=== PATIENT | female | born 1950 | race Caucasian/White ===

== ENCOUNTER 2016-12-01 09:53 | Inpatient (IN) | payer MEDICARE ==
[2016-12-01] VITALS (8 sets, daily range): BP systolic 113–190; BP diastolic 57–97; PULSE 89–116; RESP 17–28; TEMP 97.3–98.2; O2SAT 79–97
[~2016-12-01] VITALS: Ht 157.5 cm; Wt 52.7 kg
[2016-12-01] MEDS ORDERED: IODIXANOL 320 MG/ML 10 ML VIAL (for Rad CT) IV ONE (09:54)
--- NOTE | 2016-12-01 10:18 | PD ---
HPI Chief Complaint: Respiratory Symptoms Time Seen by Provider: 10:18 Travel History International Travel<30 days: No Contact w/Intl Traveler<30days: No Traveled to known affect area: No History of Present Illness HPI 66-year-old female came to the emergency room with history of shortness of breath and hemoptysis this progressively worsening since yesterday. Patient says that when she coughs she spits out a quarter size blood in her sputum that' s bright in color. Patient has history of lung cancer and is getting chemotherapy. She was told that anytime she is coughing up blood should go to the emergency room. Denies any chest pain. She short of breath at rest and her oxygen saturation was 88% on 4 L of oxygen via nasal cannula. Her oncologist is Dr. Ruiz. No history of fever or chills. No history of dizziness or syncopal episode. PFSH Past Medical History Narrative Medical List of her past medical, surgical, social and family history is reviewed from the nursing note. Hx Anticoagulant Therapy: Yes (ASA) Cardiovascular Problems: Yes (HTN, TRICUSPID/MITRAL VALVE PROLAPSE) Chemotherapy: Yes (LUNG CA ) Allergies-Medications (Allergen,Severity, Reaction): Coded Allergies: erythromycin base (Unverified Allergy, Severe, Hives, 12/01/16) penicillin G (Unverified Allergy, Severe, Hives, 12/01/16) Comments List of her allergies reviewed from the nursing note. Reported Meds & Prescriptions Reported Meds & Active Scripts Active Reported Tagrisso (Osimertinib Mesylate) 80 Mg Tablet 80 Mg PO DAILY Pravastatin 20 Mg Tab 20 Mg PO DAILY Levetiracetam ER 24 HR (Levetiracetam) 500 Mg Stas 500 Mg PO DAILY Krill Oil 500 Mg Capsule 500 Mg PO DAILY Multiple Vitamin 1 Tab 1 Tab PO DAILY Biotin 5 Mg Cap 500 Mcg PO DAILY Aspirin 81 Mg Chew 81 Mg CHEW DAILY Famotidine 20 Mg Tab 20 Mg PO DAILY Carvedilol 6.25 Mg Tab 6.25 Mg PO DAILY Hydrochlorothiazide 25 Mg Tab 25 Mg PO DAILY Levothyroxine (Levothyroxine Sodium) 75 Mcg Tab 75 Mcg PO DAILY Narrative Medication List of her home medications reviewed from the nursing note. Review of Systems Except as stated in HPI: all other systems reviewed are Neg Physical Exam Narrative GENERAL: Awake, alert, anxious, mild/moderate distress SKIN: Focused skin assessment warm/dry. HEAD: Atraumatic. Normocephalic. EYES: Pupils equal and round. No scleral icterus. No injection or drainage. ENT: No nasal bleeding or discharge. Mucous membranes pink and moist. NECK: Trachea midline. No JVD. CARDIOVASCULAR: Regular rate and rhythm. No murmur appreciated. RESPIRATORY: Tachypnea, diminished air entry on the left lung field especially the base GASTROINTESTINAL: Abdomen soft, non-tender, nondistended. Hepatic and splenic margins not palpable. MUSCULOSKELETAL: No obvious deformities. No clubbing. No cyanosis. No edema. NEUROLOGICAL: Awake and alert. No obvious cranial nerve deficits. Motor grossly within normal limits. Normal speech. PSYCHIATRIC: Appropriate mood and affect; insight and judgment normal. Data Data Last Documented VS Vital Signs Date Time Temp Pulse Resp B/P (MAP) Pulse Ox O2 Delivery O2 Flow Rate FiO2 12/01/16 12:18 92 25 113/64 (80) 96 Venturi Mask 12/01/16 10:35 6.00 50 12/01/16 10:10 97.9 Orders Orders Complete Blood Count With Diff (12/01/16 10:25) Basic Metabolic Panel (Bmp) (12/01/16 10:25) Prothrombin Time / Inr (Pt) (12/01/16 10:25) Troponin I (12/01/16 10:25) Urinalysis - C+S If Indicated (12/01/16 10:25) Blood Culture (12/01/16 10:25) Iv Access Insert/Monitor (12/01/16 10:25) Electrocardiogram (12/01/16 10:25) Ecg Monitoring (12/01/16 10:25) Oximetry (12/01/16 10:25) Oxygen Administration (12/01/16 10:25) Chest, Single Ap (12/01/16 10:25) Ct Pulmonary Angiogram (12/01/16 10:25) Sodium Chloride 0.9% Flush (Ns Flush) (12/01/16 10:30) Albuterol Neb (Albuterol Neb) (12/01/16 10:30) Type And Screen (12/01/16 10:25) Lactic Acid (12/01/16 10:25) Iodixanol 320 Inj (Rad Ct) (Visipaque 32 (12/01/16 09:54) Aztreonam Inj (Azactam Inj) (12/01/16 12:15) Vancomycin Inj (Vancomycin Inj) (12/01/16 12:15) Lactic Acid (12/01/16 12:10) Admit Order (Ed Use Only) (12/01/16 13:32) Labs Laboratory Tests Test 12/01/16 10:36 12/01/16 12:23 White Blood Count 4.9 TH/MM3 Red Blood Count 3.53 MIL/MM3 Hemoglobin 10.7 GM/DL Hematocrit 33.0 % Mean Corpuscular Volume 93.7 FL Mean Corpuscular Hemoglobin 30.3 PG Mean Corpuscular Hemoglobin Concent 32.3 % Red Cell Distribution Width 14.3 % Platelet Count 200 TH/MM3 Mean Platelet Volume 8.5 FL Neutrophils (%) (Auto) 59.2 % Lymphocytes (%) (Auto) 25.0 % Monocytes (%) (Auto) 12.9 % Eosinophils (%) (Auto) 1.9 % Basophils (%) (Auto) 1.0 % Neutrophils # (Auto) 2.9 TH/MM3 Lymphocytes # (Auto) 1.2 TH/MM3 Monocytes # (Auto) 0.6 TH/MM3 Eosinophils # (Auto) 0.1 TH/MM3 Basophils # (Auto) 0.0 TH/MM3 CBC Comment DIFF FINAL Differential Comment Prothrombin Time 10.3 SEC Prothromb Time International Ratio 0.9 RATIO Blood Urea Nitrogen 12 MG/DL Creatinine 1.15 MG/DL Random Glucose 121 MG/DL Calcium Level 9.0 MG/DL Sodium Level 128 MEQ/L Potassium Level 4.1 MEQ/L Chloride Level 93 MEQ/L Carbon Dioxide Level 26.7 MEQ/L Anion Gap 8 MEQ/L Estimat Glomerular Filtration Rate 47 ML/MIN Lactic Acid Level 1.9 mmol/L 1.0 mmol/L Troponin I 0.07 NG/ML [facility] Medical Decision Making Medical Screen Exam Complete: Yes Emergency Medical Condition: Yes Medical Record Reviewed: Yes Interpretation(s) Twelve-lead EKG was reviewed by me. Normal sinus rhythm, normal axis, nonspecific ST-T wave changes. Heart rate of 89 bpm. Differential Diagnosis PE, pneumonia, bleeding from the lung mass, pleural effusion Narrative Course 11:38 AM blood test results are back. Patient has mild to moderate hyponatremia. The troponin is slightly elevated. I suspicion is high for PE or a hemorrhagic lung mass. I've ordered a CT pulmonary angiogram. Awaiting for the CAT scan to be done and resulted. Chest x-ray was read as left lower lobe density which could be infiltrate. I have not given the patient any antibiotic. Awaiting for the CAT scan. Patient will require admission. 12:[address] pulmonary angiogram is negative for PE. The scan shows a left lower lobe consolidation. I started her on Azactam and vancomycin to treat a possible aggressive pneumonia since patient has been in and out of healthcare facility multiple times for her cancer treatment. Cussed the case with her oncologist Dr. Ruiz was out of town. He agreed with the management. One of his concern was possible medication induced pneumonitis. In which case he had recommended steroid. I have not started her on steroid because this seems more of a consolidation then bilateral pneumonitis. Patient will require admission. Awaiting for the admitting physician to call back. Dr. Ruiz will be consulted. Critical Care Narrative Aggregate critical care time was 30 minutes. Time to perform other separately billable procedures was not included in the critical care time. My time did not include minutes spent treating any other patients simultaneously or on activities that did not directly contribute to the patient's treatment. The services I provided to this patient were to treat and/or prevent clinically significant deterioration that could result in: Hypoxia, hemoptysis, respiratory distress I provided critical care services requiring my management, as noted below: Chart data review, documentation time, medication orders and management, vital sign assessments/reviewing monitor data, ordering and reviewing lab tests, ordering and interpreting/reviewing x-rays and diagnostic studies, care of the patient and discussion of the patient with the admitting physicians. Procedures EKG Prior to Arrival: No Diagnosis Primary Impression: Respiratory distress Additional Impressions: Pneumonia Qualified Codes: J18.1 - Lobar pneumonia, unspecified organism Hypoxia Hemoptysis Lung cancer Qualified Codes: C34.90 - Malignant neoplasm of unspecified part of unspecified bronchus or lung Admitting Information Admitting Physician Requests: Pau Montaño MD Dec 01, 2016 10:18
[2016-12-01] MEDS ORDERED: SODIUM CHLORIDE 0.9% FLUSH 10 ML FLUSH IVF PRN (10:30)
[2016-12-01] MEDS ORDERED: RESP: ALBUTEROL 2.5 MG/3 ML NEB (SCH) INH ONE (10:30)
[2016-12-01] MEDS ORDERED: MULTTAB67 PO (10:45)
[2016-12-01] MEDS ORDERED: PRAV20TA2 PO (10:45)
[2016-12-01] MEDS ORDERED: KRIL500C2 PO (10:45)
[2016-12-01] MEDS ORDERED: ASPI81CH CHEW (10:45)
[2016-12-01] MEDS ORDERED: LEVE500T11 PO (10:45)
[2016-12-01] MEDS ORDERED: CARV6.252 PO (10:45)
[2016-12-01] MEDS ORDERED: HYDR25TA5 PO (10:45)
[2016-12-01] MEDS ORDERED: LEVO75TA3 PO (10:45)
[2016-12-01] MEDS ORDERED: OSIM80TA PO (10:45)
[2016-12-01] MEDS ORDERED: FAMO20TA2 PO (10:45)
[2016-12-01] MEDS ORDERED: BIOTCAP PO (10:45)
--- NOTE | 2016-12-01 10:57 | RADRPT ---
EXAM DATE/TIME: 12/01/2016 10:32 [facility] COMPARISON: No previous studies available for comparison. INDICATIONS : Shortness of breath. MEDICAL HISTORY : Hypertension. Hypercholesterolemia. Carcinoma, lung. Lymphoma, Renal cell carcinoma, Mitral valve prolapse SURGICAL HISTORY : Nephrectomy, right. ENCOUNTER: Initial ACUITY: 3 days PAIN SCORE: 0/10 LOCATION: Bilateral chest FINDINGS: A single view of the chest demonstrates left basal consolidation. Tiny pleural effusion. Heart normal size The cardiomediastinal contours are unremarkable. Osseous structures are intact. CONCLUSION: 1. Left basilar consolidation, possibly pneumonia. 2. Tiny left pleural effusion. Shon Gibbs MD on December 01, 2016 at 10:55 Board Certified Radiologist. This report was verified electronically.
[2016-12-01 11:04] LABS: AUTOMATED NEUTROPHIL # 2.9 TH/MM3 (1.8-7.7); EOSINOPHIL # 0.1 TH/MM3 (0-0.4); EOSINOPHIL % 1.9 % (0.0-4.0); HEMO FLAGS DIFF FINAL; LYMPHOCYTE # 1.2 TH/MM3 (1.0-4.8); MEAN CELL VOLUME 93.7 FL (80.0-100.0); MEAN CORPUSCULAR HEMOGLOBIN 30.3 PG (27.0-34.0); MEAN CORPUSCULAR HGB CONC 32.3 % (32.0-36.0); MONO % 12.9 % (0.0-8.0); NEUT % 59.2 % (16.0-70.0); PLATELET COUNT 200 TH/MM3 (150-450); RED BLOOD COUNT 3.53 MIL/MM3 (4.00-5.30); RED CELL DISTRIBUTION WIDTH 14.3 % (11.6-17.2); WHITE BLOOD COUNT 4.9 TH/MM3 (4.0-11.0)
[2016-12-01 11:08] LABS: INTERNATIONAL NORMALIZED RATIO 0.9 RATIO; PROTHROMBIN TIME - PATIENT 10.3 SEC (9.8-11.6)
[2016-12-01 11:10] LABS: BICARBONATE 26.7 MEQ/L (21.0-32.0); POTASSIUM 4.1 MEQ/L (3.5-5.1)
--- NOTE | 2016-12-01 11:47 | RADRPT ---
EXAM DATE/TIME: 12/01/2016 11:31 [facility] COMPARISON: No previous studies available for comparison. INDICATIONS : Shortness of breath. IV CONTRAST: 50 cc Visipaque (iodixanol) IV RADIATION DOSE: 22.62 CTDIvol (mGy) MEDICAL HISTORY : Carcinoma, lung. Cardiovascular disease Hypertension. SURGICAL HISTORY : Hysterectomy. Splenectomy.Nephrectomy, left.Heart. ENCOUNTER: Initial ACUITY: 1 day PAIN SCALE: 4/10 LOCATION: Bilateral chest TECHNIQUE: Volumetric scanning of the chest was performed using a pulmonary embolism protocol MIP images were re constructed. Using automated exposure control and adjustment of the mA and/or kV according to patien t size, radiation dose was kept as low as reasonably achievable to obtain optimal diagnostic quality images. DICOM format image data is available electronically for review and comparison. Follow-up recommendations for detected pulmonary nodules are based at a minimum on nodule size and pa tient risk factors according to Fleischner Society Guidelines. FINDINGS: Breathing motion degraded. PULMONARY ARTERIES: No filling defects are seen in the pulmonary arteries through the segmental level. LUNGS: There is dense consolidation without air bronchograms involving the medial left lung base. Low-densit y material seen involving the airways of the left lower lobe. Surgical clips are seen about the hilum suggesting partial lobectomy. Bronchiectatic changes are seen involving the medial upper lobes bilat erally. No discrete mass. PLEURAE: Small left effusion. No effusion on the right. MEDIASTINUM: There is good visualization of the great vessels of the middle mediastinum. No evidence of mediastin al or hilar adenopathy/mass. MUSCULOSKELETAL: Within normal limits for patient age. MISCELLANEOUS: The visualized upper abdominal organs demonstrate no acute abnormality. CONCLUSION: 1. Motion degraded exam. 2. No pulmonary embolus. 3. Consolidation involving the left lower lobe with small left effusion. Low-density material seen in volving the airways of the left lower lobe. This could relate to mucous plugging. Bernabe Marquez Jr., MD on December 01, 2016 at 11:40 Board Certified Radiologist. This report was verified electronically.
--- NOTE | 2016-12-01 12:03 | EKG ---
Date Performed: 12/01/2016 Time Performed: 10:52:53 PTAGE: 66 years EKG: Sinus rhythm LEFT ATRIAL ENLARGEMENT POSSIBLE LEFT VENTRICULAR HYPERTROPHY ABNORMAL ECG PREVIOUS TRACING : 12/20/2013 10.16 No significant change from previous tracing noted. DOCTOR: Tesfaye Hillman Interpretating Date/Time 12/01/2016 12:02:12
[2016-12-01] MEDS ORDERED: AZTREONAM INJ 2,000 MG in SODIUM CHLORIDE 0.9% INJ 100 ML IV ONE (12:15)
[2016-12-01] MEDS ORDERED: VANCOMYCIN INJ 1,000 MG in SODIUM CHLOR 0.9% 250 ML INJ 250 ML IV ONE (12:15)
[2016-12-01] MEDS ORDERED: NALOXONE HCL 0.4 MG/ML AMP IV PRN (13:45)
[2016-12-01] MEDS ORDERED: BISACODYL 10 MG SUPP RECTAL PRN (13:45)
[2016-12-01] MEDS ORDERED: ONDANSETRON HCL 4 MG/2 ML VIAL IVP PRN (13:45)
[2016-12-01] MEDS ORDERED: LACTULOSE SYRUP 20 GM/30 ML CUP PO PRN (13:45)
[2016-12-01] MEDS ORDERED: SENNOSIDES 8.6 MG TAB PO PRN (13:45)
[2016-12-01] MEDS ORDERED: SODIUM CHLORIDE 0.9% FLUSH 10 ML FLUSH IV FLUSH PRN (13:45)
[2016-12-01] MEDS ORDERED: ACETAMINOPHEN 325 MG TAB PO PRN (13:45)
[2016-12-01] MEDS ORDERED: Vancomycin Consult Pharmacy 1 EA OTHER SCH (13:45)
[2016-12-01] MEDS ORDERED: MAGNESIUM HYDROXIDE SUSP 30 ML CUP PO PRN (13:45)
[2016-12-01 13:48] LABS: BLOOD, URINE NEG (NEG); GLUCOSE,URINE NEG (NEG); KETONE, URINE NEG (NEG); NITRITE,URINE NEG (NEG); PH, URINE 6.5 (5.0-8.5); SQUAMOUS EPITHELIAL CELL URINE <1 /hpf (0-5); URINE COLOR LIGHT-YELLOW (YELLW/STRAW)
[2016-12-01 13:52] LABS: COMMENT (UR) CULT NOT INDICATED; CULTURE IF INDICATED CULT NOT INDICATED
[2016-12-01] MEDS: SODIUM CHLOR 0.9% 1000 ML INJ 1,000 ML IV SCH (16:04)
[2016-12-01] MEDS: RESP: ALBUTEROL 2.5 MG/IPRATROPIUM 0.5 MG NEB (SCH) NEB ×2 (16:30→21:49)
--- NOTE | 2016-12-01 18:23 | HHI.HP ---
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, who was started on Tagrisso five weeks ago she has Stage IV Non Small cell lung cancer, she received recently Prednisone due to Respiratory insufficiency and Wheezing, has continued coughing, has Severe Tricuspid regurgitation, Right atrial enlargement, Pulmonary Hypertension, Moderate Mitral valve regurgitation with prolapse has Metastatic 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 She short of breath at rest and her oxygen saturation was 88% on 4 L of oxygen via nasal cannula. was contacted her endoscopy support specialist Doctor Jesus Ruiz recommended for Hospitalization. at this time seen in the presence of her two sisters. Review of Systems Constitutional: DENIES: Fever, Chills, Change in appetite Endocrine: DENIES: Heat/cold intolerance Eyes: DENIES: Blurred vision, Eye pain Respiratory: COMPLAINS OF: Cough, Hemoptysis, Shortness of breath Except as stated in HPI: all other systems reviewed are Neg Past Family Social History Past Medical History Hypertension Metastatic to Brain, Spine and bilateral lungs Non small lung cancer Hypothyroidism Seizure disorder CAD Non Hodgkin's Lymphoma Renal Cell Carcinoma status post Nephrectomy Past Surgical History Bilateral Salpingo-oophorectomy Nephrectomy right resection of tumor left frontal lobe 12/28/15 [facility] Splenectomy Tonsillectomy Reported Medications Reported Meds & Active Scripts Active Reported Tagrisso (Osimertinib Mesylate) 80 Mg Tablet 80 Mg PO DAILY Pravastatin 20 Mg Tab 20 Mg PO DAILY Levetiracetam ER 24 HR (Levetiracetam) 500 Mg Stas 500 Mg PO DAILY Krill Oil 500 Mg Capsule 500 Mg PO DAILY Multiple Vitamin 1 Tab 1 Tab PO DAILY Biotin 5 Mg Cap 500 Mcg PO DAILY Aspirin 81 Mg Chew 81 Mg CHEW DAILY Famotidine 20 Mg Tab 20 Mg PO DAILY Carvedilol 6.25 Mg Tab 6.25 Mg PO DAILY Hydrochlorothiazide 25 Mg Tab 25 Mg PO DAILY Levothyroxine (Levothyroxine Sodium) 75 Mcg Tab 75 Mcg PO DAILY Allergies: Coded Allergies: erythromycin base (Unverified Allergy, Severe, Hives, 12/01/16) penicillin G (Unverified Allergy, Severe, Hives, 12/01/16) Active Ordered Medications Current Medications Medications (Trade) Dose Ordered Sig/Sami Route Start Time Stop Time Status Last Admin (Pepcid) 20 mg DAILY PO 12/02/16 09:00 (Synthroid) 75 mcg DAILY@0600 PO 12/02/16 06:00 (Pravachol) 20 mg DAILY PO 12/02/16 09:00 Patient Own Medication PT OWN MED: KEPPRA... DAILY PO 12/02/16 09:00 Future Hold Sodium Chloride 1,000 ml @ 75 mls/hr [id number] IV 12/01/16 14:30 12/01/16 16:04 (NS Flush) 2 ml UNSCH PRN IV FLUSH 12/01/16 13:45 (NS Flush) 2 ml BID IV FLUSH 12/01/16 21:00 12/01/16 21:47 (Tylenol) 650 mg Q4H PRN PO 12/01/16 13:45 (Zofran Inj) 4 mg Q6H PRN IVP 12/01/16 13:45 (Narcan Inj) 0.4 mg UNSCH PRN IV 12/01/16 13:45 (Gial-Colace) 1 tab BID PO 12/01/16 21:00 12/01/16 21:47 (Milk Of Magnesia Liq) 30 ml Q12H PRN PO 12/01/16 13:45 (Senokot) 17.2 mg Q12H PRN PO 12/01/16 13:45 (Dulcolax Supp) 10 mg DAILY PRN RECTAL 12/01/16 13:45 (Lactulose Liq) 30 ml DAILY PRN PO 12/01/16 13:45 Aztreonam 2000 mg/ Sodium Chloride 100 ml @ 200 mls/hr Q8H IV 12/01/16 23:00 12/01/16 22:58 Pharmacy Profile Note 0 ml @ 0 mls/hr UNSCH OTHER 12/01/16 13:45 (Duoneb Neb) 1 ampule Q4HR NEB NEB 12/01/16 16:00 12/01/16 21:49 (Mucinex Er) 600 mg BID PO 12/01/16 21:00 12/01/16 21:47 Vancomycin HCl 1000 mg/Sodium Chloride 250 ml @ 250 mls/hr Q24H IV 12/02/16 13:00 Miscellaneous Information SPECIFIC LAB TO BE ... ONCE ONCE .XX 12/04/16 12:45 12/04/16 12:46 Family History Sister with Breast Cancer sister with Lung Cancer Social History Lives with her Sister Mrs. Owens Smoked in the past, denies toxic habits. Physical Exam Vital Signs Vital Signs Date Time Temp Pulse Resp B/P (MAP) Pulse Ox O2 Delivery O2 Flow Rate FiO2 12/01/16 17:40 Nasal Cannula 3.00 12/01/16 17:18 12/01/16 17:00 97.3 89 17 131/62 (85) 97 12/01/16 12:18 92 25 113/64 (80) 96 Venturi Mask 12/01/16 10:35 92 Venturi Mask 6.00 50 12/01/16 10:30 89 Nasal Cannula 4.00 12/01/16 10:16 100 24 90 Nasal Cannula 4.00 12/01/16 10:10 97.9 100 24 190/97 (128) 90 12/01/16 09:56 98.2 116 28 170/82 (111) 79 Room Air Physical Exam GENERAL: Awake, alert, anxious, no acute distress. SKIN: Focused skin assessment warm/dry. HEAD: Atraumatic. Normocephalic. EYES: Pupils equal and round. No scleral icterus. No injection or drainage. ENT: No nasal bleeding or discharge. Mucous membranes pink and moist. NECK: Trachea midline. No JVD. CARDIOVASCULAR: Regular rate and rhythm. No murmur appreciated. RESPIRATORY: Tachypnea, diminished air entry on the left lung field especially the base GASTROINTESTINAL: Abdomen soft, non-tender, nondistended. Hepatic and splenic margins not palpable. MUSCULOSKELETAL: No obvious deformities. No clubbing. No cyanosis. No edema. NEUROLOGICAL: Awake and alert. No obvious cranial nerve deficits. Motor grossly within normal limits. Normal speech. PSYCHIATRIC: Appropriate mood and affect; insight and judgment normal. Laboratory Laboratory Tests Test 12/01/16 10:36 12/01/16 12:23 12/01/16 13:25 12/01/16 16:30 White Blood Count 4.9 Red Blood Count 3.53 Hemoglobin 10.7 Hematocrit 33.0 Mean Corpuscular Volume 93.7 Mean Corpuscular Hemoglobin 30.3 Mean Corpuscular Hemoglobin Concent 32.3 Red Cell Distribution Width 14.3 Platelet Count 200 Mean Platelet Volume 8.5 Neutrophils (%) (Auto) 59.2 Lymphocytes (%) (Auto) 25.0 Monocytes (%) (Auto) 12.9 Eosinophils (%) (Auto) 1.9 Basophils (%) (Auto) 1.0 Neutrophils # (Auto) 2.9 Lymphocytes # (Auto) 1.2 Monocytes # (Auto) 0.6 Eosinophils # (Auto) 0.1 Basophils # (Auto) 0.0 CBC Comment DIFF FINAL Differential Comment Prothrombin Time 10.3 Prothromb Time International Ratio 0.9 Blood Urea Nitrogen 12 Creatinine 1.15 Random Glucose 121 Calcium Level 9.0 Sodium Level 128 Potassium Level 4.1 Chloride Level 93 Carbon Dioxide Level 26.7 Anion Gap 8 Estimat Glomerular Filtration Rate 47 Lactic Acid Level 1.9 1.0 Troponin I 0.07 1.23 Urine Color LIGHT-YELLOW Urine Turbidity CLEAR Urine pH 6.5 Urine Specific [place] 1.024 Urine Protein TRACE Urine Glucose (UA) NEG Urine Ketones NEG Urine Occult Blood NEG Urine Nitrite NEG Urine Bilirubin NEG Urine Urobilinogen LESS THAN 2.0 Urine Leukocyte Esterase NEG Urine RBC 1 Urine WBC LESS THAN 1 Urine Squamous Epithelial Cells <1 Microscopic Urinalysis Comment CULT NOT INDICATED Total Creatine Kinase 123 Date/Time Source Procedure Growth Status 12/01/16 11:18 Blood Peripheral Aerobic Blood Culture Pending Received 12/01/16 11:18 Blood Peripheral Anaerobic Blood Culture Pending Received Result Diagram: 12/01/16 1036 12/01/16 1036 Caprini VTE Risk Assessment Caprini VTE Risk Assessment: Mod/High Risk (score >= 2) Caprini Risk Assessment Model Point Value = 1 Point Value = 2 Point Value = 3 Point Value = 5 Age 41-60 Minor surgery BMI > 25 kg/m2 Swollen legs Varicose veins or History of unexplained or recurrent spontaneous Oral contraceptives or hormone replacement Sepsis (< 1 month) Serious lung disease, including pneumonia (< 1 month) Abnormal pulmonary function Acute myocardial infarction Congestive heart failure (< 1 month) History of inflammatory bowel disease Medical patient at bed rest Age 61-74 Arthroscopic surgery Major open surgery (> 45 min) Laparoscopic surgery (> 45 min) Malignancy Confined to bed (> 72 hours) Immobilizing plaster cast Central venous access Age >= 75 History of VTE Family history of VTE Factor V Leiden Prothrombin [id number] Lupus anticoagulant Anticardiolipin antibodies Elevated serum homocysteine Heparin-induced thrombocytopenia Other congenital or acquired thrombophilia Stroke (< 1 month) Elective arthroplasty Hip, pelvis, or leg fracture Acute spinal cord injury (< 1 month) Prophylaxis Regimen Total Risk Factor Score Risk Level Prophylaxis Regimen 0-1 Low Early ambulation 2 Moderate Order ONE of the following: *Sequential Compression Device (SCD) *Heparin 5000 units SQ BID 3-4 Higher Order ONE of the following medications: *Heparin 5000 units SQ TID *Enoxaparin/Lovenox 40 mg SQ daily (WT < 150 kg, CrCl > 30 mL/min) *Enoxaparin/Lovenox 30 mg SQ daily (WT < 150 kg, CrCl > 10-29 mL/min) *Enoxaparin/Lovenox 30 mg SQ BID (WT < 150 kg, CrCl > 30 mL/min) AND/OR *Sequential Compression Device (SCD) 5 or more Highest Order ONE of the following medications: *Heparin 5000 units SQ TID (Preferred with Epidurals) *Enoxaparin/Lovenox 40 mg SQ daily (WT < 150 kg, CrCl > 30 mL/min) *Enoxaparin/Lovenox 30 mg SQ daily (WT < 150 kg, CrCl > 10-29 mL/min) *Enoxaparin/Lovenox 30 mg SQ BID (WT < 150 kg, CrCl > 30 mL/min) AND *Sequential Compression Device (SCD) Assessment and Plan Assessment and Plan 1. Hemoptysis in a patient with Stage IV Non Small Cell lung Cancer T790M Mutation, on Chemotherapy, receiving Tagrisso Continue Bronchodilator, Mucolytic incentive spirometry, fire fighting equipment specialist consult, CTA negative for PE showed consolidation on Left lower lobe consolidation. follow Hemoglobin and Hematocrit. discussed BY ER specialist with doctor Ruiz to see his patient. 2. Pneumonia started on Vancomycin and Azactam, asked for blood culture, sputum culture, Legionella antigen and Pneumococcal antigen 3. . History of Renal Cell Carcinoma status post Nephrectomy 4. Hodgkin's Disease 1973 no recurrence 5. Hypertension on hold anti-hypertensives 6. Hypothyroidism to continue Hormonal replacement 7. Hyperlipidemia to continue Statins. 8. CAD with Severe Tricuspid and Mitral regurgitation DVT prophylaxis with SCDs contraindicated Pharmacological management GI prophylaxis with Famotidine Transaction Manager PT evaluation continue antibiotics Continue IV Hydration Started Regular diet. Discussed with Emergency Medicine Physician Doctor Pau Marino Discussed Condition With Patient and her two Sisters. Physician Certification 2 Midnight Certification Type: Admission for Inpatient Services Order for Inpatient Services The services are ordered in accordance with Medicare regulations or non- Medicare payer requirements, as applicable. In the case of services not specified as inpatient-only, they are appropriately provided as inpatient services in accordance with the 2-midnight benchmark. Estimated LOS (days): 3 days is the estimated time the patient will need to remain in the hospital, assuming treatment plan goals are met and no additional complications. Post-Hospital Plan: Not yet determined Sea Stephenson MD Dec 01, 2016 18:23
[2016-12-01] MEDS ORDERED: DOCUSATE SODIUM 50 MG/SENNA 8.6 MG TAB PO SCH (21:00)
[2016-12-01] MEDS: guaiFENesin E.R. 600 MG TAB PO SCH (21:47)
[2016-12-01] MEDS: SODIUM CHLORIDE 0.9% FLUSH 10 ML FLUSH IV FLUSH SCH (21:47)
[2016-12-01] MEDS: AZTREONAM INJ 2,000 MG in SODIUM CHLORIDE 0.9% INJ 100 ML IV SCH (22:58)
[2016-12-01] MEDS ORDERED: PILL SPLITTER OTHER PRN (23:45)
[2016-12-02] VITALS (22 sets, daily range): BP systolic 104–153; BP diastolic 55–89; PULSE 84–113; RESP 18–34; TEMP 97.1–98.1; O2SAT 90–97
[2016-12-02] MEDS ORDERED: METOPROLOL TARTRATE 25 MG TAB PO ONE
[2016-12-02] MEDS ORDERED: ASPIRIN 81 MG CHEW TAB CHEW ONE
[2016-12-02] MEDS ORDERED: NITROGLYCERIN 0.4 MG SL 25 TABS/BTL SL PRN
[2016-12-02] MEDS: RESP: ALBUTEROL 2.5 MG/IPRATROPIUM 0.5 MG NEB (SCH) NEB ×6 (00:22→19:30)
[2016-12-02] MEDS: LEVOTHYROXINE SODIUM 75 MCG TAB PO SCH (05:08)
[2016-12-02] MEDS: SODIUM CHLOR 0.9% 1000 ML INJ 1,000 ML IV SCH (05:10)
--- NOTE | 2016-12-02 05:36 | MB ---
cc: PETEY MENDEZ M.D. DATE OF CONSULTATION 12/01/2016 REASON FOR CONSULTATION Consult requested by hospitalist for evaluation of non-small cell lung cancer. HISTORY OF PRESENT ILLNESS Jo is a pleasant 66-year-old female. She is under the care of my associate Dr. Ruiz for metastatic [id number] lung cancer. 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 She underwent resection of one of the brain masses; the pathology shows adenocarcinoma consistent with lung cancer. The biomarkers were positive for Exon-19 deletion. She had received stereotactic radiation therapy to the brain metastasis. She was started on Tarceva in February of last year. The patient had a good response initially. Then in September she had a PET scan which showed progressive disease. Dr. Ruiz had ordered Foundation study and she was found to have T790M mutation. The patient was started on Tagrisso on October 29. The patient has been tolerating it well. The patient had developed shortness of breath and hemoptysis. With that she came to the emergency room as she was advised that if she developed any hemoptysis she is at risk for bleeding and she should report to the emergency room. The patient had a CT angiogram of the chest which did not show any pulmonary embolism. There is a consolidation noted in the left lower lobe with a small left effusion. The low-density material is seen involving the airways of the left lower lobe. This could be related to mucous plugging. The patient is admitted to the hospital for possible pneumonia. She has consolidation. The patient is on antibiotics. I have been asked to see the patient for further evaluation as Dr. Ruiz is not available today. REVIEW OF SYSTEMS The patient has no further episode of hemoptysis since she is in the hospital. She is complaining of cough and shortness of breath. The patient is hungry and she is trying to order food from the cafeteria and she has been on hold for 20 minutes and she is getting frustrated with that. She has a sister and another family member present in the room. She denies any headaches. She denies any nausea or vomiting. She denies any weight loss. The rest of the review of systems is negative. PAST MEDICAL HISTORY 1. History of renal cell cancer. 2. History of Hodgkin's lymphoma, Stage III-A, treated with radiation therapy in the 1970s. PAST SURGICAL HISTORY 1. Bilateral salpingo-oophorectomy. 2. Right nephrectomy. 3. Craniotomy and resection of the brain metastasis from the left frontal lobe. 4. Hysterectomy. 5. Splenectomy. 6. Tonsillectomy. ALLERGIES ERYTHROMYCIN. PENICILLIN. MEDICATIONS Please see EMR. FAMILY HISTORY Noncontributory. SOCIAL HISTORY The patient does not smoke cigarettes, does not drink alcohol. PHYSICAL EXAMINATION GENERAL: A well-developed, well-nourished elderly white female in no apparent distress. VITAL SIGNS: Temperature 97.3, heart is 89, blood pressure 131/62, O2 saturation 97%. HEENT: PERRLA, EOMI, anicteric. No oral lesions are noted. NECK: No lymphadenopathy noted. LUNGS: Clear. No wheezing, rhonchi or rales. HEART: Regular rate and rhythm. ABDOMEN: Soft, nontender. No hepatosplenomegaly. EXTREMITIES: No pedal edema. NEUROLOGY: Awake, alert, oriented x 3. SKIN: No significant lesions are noted. ASSESSMENT 1. Non-small cell lung cancer with brain metastasis status post Tarceva, currently on Tagrisso. 2. Hemoptysis and shortness of breath probably related to pneumonia. 3. Pneumonia. PLAN I have reviewed her available records and I have discussed with the patient, sister and another family member regarding her condition. The patient had only one episode of hemoptysis. She has shortness of breath which seems to have resolved since she is in the hospital. She has no further episodes of hemoptysis. Most likely this is all due to the pneumonia. The patient is on antibiotics. Hopefully this will resolve her hemoptysis and she would be able to resume Tagrisso. I will have her primary oncologist, Dr. Ruiz, to see her tomorrow. The patient and the family members have asked several questions and these were answered to their satisfaction. Thank you for asking my opinion. MD MARGARITA Lugo/AJIT /11:49 PM /5:22 AM TIFFANY
[2016-12-02 06:24] LABS: AUTOMATED NEUTROPHIL # 1.9 TH/MM3 (1.8-7.7); BASOPHIL # 0.1 TH/MM3 (0-0.2); BASOPHIL % 3.1 % (0.0-2.0); EOSINOPHIL # 0.1 TH/MM3 (0-0.4); EOSINOPHIL % 2.9 % (0.0-4.0); HEMATOCRIT 28.7 % (35.0-46.0); HEMO FLAGS DIFF FINAL; LYMPH % 29.4 % (9.0-44.0); LYMPHOCYTE # 1.1 TH/MM3 (1.0-4.8); MEAN CELL VOLUME 94.1 FL (80.0-100.0); MEAN CORPUSCULAR HEMOGLOBIN 31.1 PG (27.0-34.0); MONO % 15.2 % (0.0-8.0); NEUT % 49.4 % (16.0-70.0); PLATELET COUNT 165 TH/MM3 (150-450); RED BLOOD COUNT 3.05 MIL/MM3 (4.00-5.30); RED CELL DISTRIBUTION WIDTH 14.1 % (11.6-17.2); WHITE BLOOD COUNT 3.9 TH/MM3 (4.0-11.0)
[2016-12-02 06:53] LABS: PROTHROMBIN TIME - PATIENT 10.5 SEC (9.8-11.6)
[2016-12-02] MEDS: AZTREONAM INJ 2,000 MG in SODIUM CHLORIDE 0.9% INJ 100 ML IV SCH ×3 (06:53→23:20)
[2016-12-02 07:24] LABS: ANION GAP 9 MEQ/L (5-15); AST (GOT) 24 U/L (15-37); BLOOD UREA NITROGEN 12 MG/DL (7-18); CHLORIDE 100 MEQ/L (98-107); GLOMERULAR FILTRATION RATE 51 ML/MIN (>89); POTASSIUM 4.6 MEQ/L (3.5-5.1); SODIUM (NA) 135 MEQ/L (136-145)
[2016-12-02 07:28] LABS: ALKALINE PHOSPHATASE 70 U/L (45-117); ALT (GPT) 14 U/L (10-53); TOTAL BILIRUBIN ADULT 0.2 MG/DL (0.2-1.0)
--- NOTE | 2016-12-02 08:26 | PD.ONC.PN ---
Subjective Subjective Remarks Afebrile overnight. Pt with some mild SOB Denies chest pain Awaiting cardiology consult for elevated troponin. Objective Data Date Time Temp Pulse Resp B/P (MAP) Pulse Ox O2 Delivery O2 Flow Rate FiO2 12/02/16 06:00 85 12/02/16 05:00 86 12/02/16 04:21 97.9 84 20 119/58 (78) 95 12/02/16 00:00 97.5 94 20 104/55 (71) 95 12/01/16 21:51 95 Nasal Cannula 3.00 12/01/16 20:30 Nasal Cannula 3.00 12/01/16 20:00 97.4 93 20 118/57 (77) 95 12/01/16 19:54 99 12/01/16 17:40 Nasal Cannula 3.00 12/01/16 17:18 12/01/16 17:00 97.3 89 17 131/62 (85) 97 12/01/16 12:18 92 25 113/64 (80) 96 Venturi Mask 12/01/16 10:35 92 Venturi Mask 6.00 50 12/01/16 10:30 89 Nasal Cannula 4.00 12/01/16 10:16 100 24 90 Nasal Cannula 4.00 12/01/16 10:10 97.9 100 24 190/97 (128) 90 12/01/16 09:56 98.2 116 28 170/82 (111) 79 Room Air 12/02/16 12/02/16 12/02/16 06:59 14:59 22:59 Intake Total 1750 ml Balance 1750 ml Result Diagram: 12/02/1640912/02/16409 Laboratory Results Laboratory Tests Test 12/01/16 10:36 12/01/16 12:23 12/01/16 13:25 12/01/16 16:30 White Blood Count 4.9 TH/MM3 Red Blood Count 3.53 MIL/MM3 Hemoglobin 10.7 GM/DL Hematocrit 33.0 % Mean Corpuscular Volume 93.7 FL Mean Corpuscular Hemoglobin 30.3 PG Mean Corpuscular Hemoglobin Concent 32.3 % Red Cell Distribution Width 14.3 % Platelet Count 200 TH/MM3 Mean Platelet Volume 8.5 FL Neutrophils (%) (Auto) 59.2 % Lymphocytes (%) (Auto) 25.0 % Monocytes (%) (Auto) 12.9 % Eosinophils (%) (Auto) 1.9 % Basophils (%) (Auto) 1.0 % Neutrophils # (Auto) 2.9 TH/MM3 Lymphocytes # (Auto) 1.2 TH/MM3 Monocytes # (Auto) 0.6 TH/MM3 Eosinophils # (Auto) 0.1 TH/MM3 Basophils # (Auto) 0.0 TH/MM3 CBC Comment DIFF FINAL Differential Comment Prothrombin Time 10.3 SEC Prothromb Time International Ratio 0.9 RATIO Blood Urea Nitrogen 12 MG/DL Creatinine 1.15 MG/DL Random Glucose 121 MG/DL Calcium Level 9.0 MG/DL Sodium Level 128 MEQ/L Potassium Level 4.1 MEQ/L Chloride Level 93 MEQ/L Carbon Dioxide Level 26.7 MEQ/L Anion Gap 8 MEQ/L Estimat Glomerular Filtration Rate 47 ML/MIN Lactic Acid Level 1.9 mmol/L 1.0 mmol/L Troponin I 0.07 NG/ML 1.23 NG/ML Urine Color LIGHT-YELLOW Urine Turbidity CLEAR Urine pH 6.5 Urine Specific Mobile 1.024 Urine Protein TRACE mg/dL Urine Glucose (UA) NEG mg/dL Urine Ketones NEG mg/dL Urine Occult Blood NEG Urine Nitrite NEG Urine Bilirubin NEG Urine Urobilinogen LESS THAN 2.0 MG/DL Urine Leukocyte Esterase NEG Urine RBC 1 /hpf Urine WBC LESS THAN 1 /hpf Urine Squamous Epithelial Cells <1 /hpf Microscopic Urinalysis Comment CULT NOT INDICATED Total Creatine Kinase 123 U/L Test 12/01/16 21:55 12/02/16 04:10 Total Creatine Kinase 124 U/L Troponin I 1.46 NG/ML 0.98 NG/ML White Blood Count 3.9 TH/MM3 Red Blood Count 3.05 MIL/MM3 Hemoglobin 9.5 GM/DL Hematocrit 28.7 % Mean Corpuscular Volume 94.1 FL Mean Corpuscular Hemoglobin 31.1 PG Mean Corpuscular Hemoglobin Concent 33.0 % Red Cell Distribution Width 14.1 % Platelet Count 165 TH/MM3 Mean Platelet Volume 8.8 FL Neutrophils (%) (Auto) 49.4 % Lymphocytes (%) (Auto) 29.4 % Monocytes (%) (Auto) 15.2 % Eosinophils (%) (Auto) 2.9 % Basophils (%) (Auto) 3.1 % Neutrophils # (Auto) 1.9 TH/MM3 Lymphocytes # (Auto) 1.1 TH/MM3 Monocytes # (Auto) 0.6 TH/MM3 Eosinophils # (Auto) 0.1 TH/MM3 Basophils # (Auto) 0.1 TH/MM3 CBC Comment DIFF FINAL Differential Comment Prothrombin Time 10.5 SEC Prothromb Time International Ratio 1.0 RATIO Blood Urea Nitrogen 12 MG/DL Creatinine 1.07 MG/DL Random Glucose 85 MG/DL Total Protein 6.4 GM/DL Albumin 2.7 GM/DL Calcium Level 8.5 MG/DL Alkaline Phosphatase 70 U/L Aspartate Amino Transf (AST/SGOT) 24 U/L Alanine Aminotransferase (ALT/SGPT) 14 U/L Total Bilirubin 0.2 MG/DL Sodium Level 135 MEQ/L Potassium Level 4.6 MEQ/L Chloride Level 100 MEQ/L Carbon Dioxide Level 26.0 MEQ/L Anion Gap 9 MEQ/L Estimat Glomerular Filtration Rate 51 ML/MIN Culture Results Microbiology Date/Time Source Procedure Growth Status 12/01/16 11:18 Blood Peripheral Aerobic Blood Culture Pending Received 12/01/16 11:18 Blood Peripheral Anaerobic Blood Culture Pending Received 12/01/16 10:36 Blood Peripheral Aerobic Blood Culture Pending Received 12/01/16 10:36 Blood Peripheral Anaerobic Blood Culture Pending Received Administered Medications Medications (Trade) Dose Ordered Sig/Sami Route PRN Reason Start Time Stop Time Status Last Admin Dose Admin Levothyroxine Sodium (Synthroid) 75 mcg DAILY@0600 PO 12/02/16 06:00 12/02/16 05:08 Sodium Chloride 1,000 ml @ 75 mls/hr [id number] IV 12/01/16 14:30 12/02/16 05:10 Sodium Chloride (NS Flush) 2 ml BID IV FLUSH 12/01/16 21:00 12/01/16 21:47 Senna/Docusate Sodium (Gail-Colace) 1 tab BID PO 12/01/16 21:00 12/01/16 21:47 Aztreonam 2000 mg/ Sodium Chloride 100 ml @ 200 mls/hr Q8H IV 12/01/16 23:00 12/02/16 06:53 Albuterol/ Ipratropium (Duoneb Neb) 1 ampule Q4HR NEB NEB 12/01/16 16:00 12/02/16 04:46 Guaifenesin (Mucinex Er) 600 mg BID PO 12/01/16 21:00 12/01/16 21:47 Objective Remarks GENERAL: Elderly female on 2L NC, sitting up in bed in no acute distress. SKIN: Warm and dry. HEAD: Normocephalic. EYES: No injection or drainage. NECK: Supple, trachea midline. CARDIOVASCULAR: CM shows SR. RESPIRATORY: Rales to RLL. Diminished to LLL. Breathing unlabored on 2L NC. GASTROINTESTINAL: Abdomen soft, non-tender, nondistended. EXTREMITIES: No cyanosis, or edema. NEUROLOGICAL: No obvious focal deficit. Awake, alert, and oriented x3. Assessment/Plan Problem List: (1) Lung cancer ICD Codes: C34.90 - Malignant neoplasm of unspecified part of unspecified bronchus or lung Status: Chronic Assessment 66 y/o female with NSCLC on Tagrisso admitted with SOB and coughing up bloody sputum. Plan 1. When looking at the PET-CT images from 10/09 and comparing that to current CT imaging, it appears that the patient may have post obstructive pneumonia. We will get radiation oncology to see her and evaluate for possible XRT. 2. Images from PET-CT on 10/09 are on the chart. 3. Start Lovenox for DVT prophylaxis. 4. Supportive care. Attending Statement The exam, history, and the medical decision-making described in the above note were completed with the assistance of the mid-level provider. I reviewed and agree with the findings presented. I attest that I had a [id number] encounter with the patient on the same day, and personally performed and documented my assessment and findings in the medical record. have spoken to Dr. Cortés- radiation oncology and reviewed films with Jo. Suspect that area of pneumonia/consolidation is post obstructive as pet ct of showed a mass proximal to this. Dr Cortés will treat with radiation therapy and will continue Tagrisso for the T790M mutation found on her recent study from [facility]. Problem Qualifiers (1) Lung cancer: Qualified Codes: C34.90 - Malignant neoplasm of unspecified part of unspecified bronchus or lung Mily Ulloa Dec 02, 2016 08:26 Jesus Ruiz MD Dec 02, 2016 20:05
[2016-12-02] MEDS ORDERED: ENOXAPARIN SODIUM 40 MG/0.4 ML SYRINGE SQ SCH (08:30)
[2016-12-02] MEDS: SODIUM CHLORIDE 0.9% FLUSH 10 ML FLUSH IV FLUSH SCH ×2 (09:00→20:45)
[2016-12-02] MEDS ORDERED: KEPPRA 500 MG PO SCH (09:00)
[2016-12-02] MEDS ORDERED: METOPROLOL TARTRATE 25 MG TAB PO SCH (09:00)
[2016-12-02] MEDS ORDERED: PRAVASTATIN SOD 20 MG TAB PO SCH (09:00)
[2016-12-02] MEDS: FAMOTIDINE 20 MG TAB PO SCH (09:07)
[2016-12-02] MEDS: guaiFENesin E.R. 600 MG TAB PO SCH ×2 (09:07→20:44)
--- NOTE | 2016-12-02 09:11 | HHI.PR ---
Subjective Remarks Follow-up post obstructive pneumonia?/Elevated troponin I, questionable non-ST elevation DE 12/02/16-patient seen and examined, denies any episode of hemoptysis since admission. Denies any chest pain or shortness of breath. Troponin I trending down. Case discussed with oncology Objective Vitals Vital Signs Date Time Temp Pulse Resp B/P (MAP) Pulse Ox O2 Delivery O2 Flow Rate FiO2 12/02/16 08:50 95 Nasal Cannula 2.00 12/02/16 08:00 91 12/02/16 08:00 95 Nasal Cannula 2.00 12/02/16 06:00 85 12/02/16 05:00 86 12/02/16 04:21 97.9 84 20 119/58 (78) 95 12/02/16 00:00 97.5 94 20 104/55 (71) 95 12/01/16 21:51 95 Nasal Cannula 3.00 12/01/16 20:30 Nasal Cannula 3.00 12/01/16 20:00 97.4 93 20 118/57 (77) 95 12/01/16 19:54 99 12/01/16 17:40 Nasal Cannula 3.00 12/01/16 17:18 12/01/16 17:00 97.3 89 17 131/62 (85) 97 12/01/16 12:18 92 25 113/64 (80) 96 Venturi Mask 12/01/16 10:35 92 Venturi Mask 6.00 50 12/01/16 10:30 89 Nasal Cannula 4.00 12/01/16 10:16 100 24 90 Nasal Cannula 4.00 12/01/16 10:10 97.9 100 24 190/97 (128) 90 12/01/16 09:56 98.2 116 28 170/82 (111) 79 Room Air I/O 12/01/16 12/01/16 12/01/16 12/02/16 12/02/16 12/02/16 07:00 15:00 23:00 07:00 15:00 23:00 Intake Total 515 ml 1750 ml Balance 515 ml 1750 ml Intake Oral 0 ml 0 ml IV Total 515 ml 1750 ml # Voids 1 Result Diagram: 12/02/1640912/02/16409 Objective Remarks GENERAL: NAD SKIN: Warm and dry. HEAD: Normocephalic. EYES: No scleral icterus. No injection or drainage. NECK: Supple, trachea midline. No JVD or lymphadenopathy. CARDIOVASCULAR: Regular rate and rhythm without murmurs, gallops, or rubs. RESPIRATORY: Breath sounds equal bilaterally. No accessory muscle use. GASTROINTESTINAL: Abdomen soft, non-tender, nondistended. MUSCULOSKELETAL: No cyanosis, or edema. BACK: Nontender without obvious deformity. No CVA tenderness. A/P Problem List: (1) Postobstructive pneumonia ICD Code: J18.9 - Pneumonia, unspecified organism (2) Elevated troponin I level ICD Code: R74.8 - Abnormal levels of other serum enzymes (3) Lung cancer ICD Code: C34.90 - Malignant neoplasm of unspecified part of unspecified bronchus or lung Status: Chronic Assessment and Plan 66-year-old female with 1. 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 Resume Tagrisso 2. Post obstructive Pneumonia started on Vancomycin and Azactam, asked for blood culture, sputum culture, Legionella antigen and Pneumococcal antigen Case discussed this morning with Dr. Jesus Ruiz PET-CT images from 10/09 and comparing that to current CT imaging, it appears that the patient may have post obstructive pneumonia. Consult radiation oncology for evaluation for possible XRT. 3. Elevated troponin I, questionable non-ST elevation DE Cardiology has been consulted However currently patient has normal complaint of chest pain 4. Hodgkin's Disease 1973 no recurrence 5. Hypertension On Lopressor 12.5 mg twice a day Patient home medication including Coreg and hydrochlorothiazide on hold by previous hospitalist 6. Hypothyroidism On Synthroid 7. Hyperlipidemia Continue statin 8. DVT prophylaxis: Lovenox Problem Qualifiers (1) Lung cancer: Qualified Codes: C34.90 - Malignant neoplasm of unspecified part of unspecified bronchus or lung Shon Currie MD Dec 02, 2016 09:11
[2016-12-02] MEDS ORDERED: PILL SPLITTER OTHER PRN (09:15)
[2016-12-02] MEDS ORDERED: OSIMERTINIB MESYLATE 80 MG PO SCH (10:00)
[2016-12-02] MEDS: VANCOMYCIN 1,000 MG/NS 250 ML IV SCH ×2 (12:36)
[2016-12-02] MEDS ORDERED: VANCOMYCIN 1,000 MG/NS 250 ML IV SCH ×2 (13:00)
--- NOTE | 2016-12-02 13:49 | EKG ---
Date Performed: 12/02/2016 Time Performed: 00:19:50 PTAGE: 66 years EKG: Sinus rhythm Normal ECG Compared to prior tracing no significant change PREVIOUS TRACING : 12/01/2016 10.52 DOCTOR: Soraya Bautista Interpretating Date/Time 12/02/2016 13:43:33
--- NOTE | 2016-12-02 18:30 | MB ---
cc: JETHRO COTTER MD, RICHARD DATE OF CONSULTATION 12/02/16 DATE OF 1950 REASON FOR CONSULTATION A 66-year-old female with metastatic [id number] lung cancer. BRIEF HISTORY This is a lady who has been treated for Hodgkin's lymphoma, stage III-A. She was treated with radiation treatment and chemotherapy over a three-year time ending in 1975. She remembers receiving 30 treatments to the abdomen and 30 treatments to the chest area. She then later went on to receive treatment to the right neck area. She did well until she developed a renal cell carcinoma which was treated with surgical resection. Last year, she presented with seizures and evidence of a solitary brain lesion in the left frontal lobe. This was treated with a craniotomy followed by postoperative radiation treatment at [facility]. Since that time, she has been treated under Dr. Ruiz' care. She was found to have a T7 90 mutation and has been on Tagrisso. She was admitted to the hospital on this occasion with progressive shortness of breath associated with some hemoptysis. She went on and underwent a CT angiogram which revealed dense consolidation with air bronchograms involving the medial left lung base, low-density material seen involving the airways of the left upper lobe, surgical clips present in the hilum suggesting partial lobectomy and bronchiectatic changes involving the medial upper lobe. No pulmonary emboli was noted. Additionally, it is known that this lady underwent a PET CT scan on November 08 of this year. This revealed bilateral lung disease as well as a new soft tissue mass in the posterior left lower lung measuring 2.4 x 2.8 cm with an SUV of 19 adjacent to some non-hypermetabolic consolidative lung in the medial left lower lobe. In conjunction with her present CT angiogram, it is consistent with progression of disease in this location and a collapse of the lung in this location. We are being asked to see this lady to consider local radiation treatment for this problem. Currently, she is comfortably resting in bed. She has noticed improved pulmonary status while in the hospital and she has had no further hemoptysis. This lady denies significant pain. She has had increasing fatigue. She has had an approximate 10-pound weight loss in the past sox months but has not been concerned with this. Apart from just prior to this recent admission, she has not had significant new pulmonary symptoms although on questioning she likely has had some decreased pulmonary reserve which has been chronic. PAST MEDICAL AND SURGICAL HISTORY 1. Hodgkin's disease, stage III-A, treated [id number] with chemotherapy and upper half and lower half radiation treatment. 2. History of renal cell carcinoma resected 3. Metastatic lung cancer as noted above 4. Bilateral salpingo-oophorectomy 5. Craniotomy with SRS radiation treatment at [facility] 6. Hysterectomy. 7. Splenectomy 8. Tonsillectomy. ALLERGIES ERYTHROMYCIN PENICILLIN MEDICATIONS As in the EMR. FAMILY HISTORY Noncontributory. Her sister who lives in [facility] is living with her on a temporary basis. REVIEW OF SYSTEMS This lady has had increased shortness of breath. She has had hemoptysis. She denies pain. She denies chest pain or angina-like symptoms. She denies ankle edema. She denies new cardiovascular, respiratory (apart from that noted above) GI, , musculoskeletal, hematologic, new neurologic, endocrine or other complaints. PHYSICAL EXAMINATION GENERAL: On exam, this lady is alert and oriented today. She is resting comfortably and appears to be in no distress. VITAL SIGNS: As documented in the chart include a pulse of 94, respiratory rate of 26, blood pressure of 114/59 and an O2 sat on room air of 95%. HEENT: There is no jaundice. Her conjunctivae and eyelids are normal. She had full EOMs. Oral cavity was normal. There were no mucosal surface lesions. LUNGS: Her lung lerner were clear. There was decreased air entry at the left lung base. CARDIAC: She had a normal first and second heart sound without murmurs, rubs or bruits. ABDOMEN: No abdominal masses, tenderness or hepatosplenomegaly. EXTREMITIES: No ankle edema. She is moving all limbs normally. SKIN: I have examined her skin extensively for radiation changes from her radiation treatment in the 70s and there are no sequelae of her radiation Interestingly enough. DISCUSSION AND REVIEW OF DATA I have reviewed Dr. Ruiz' and Dr. Jarquin's notes that are in the chart. Additionally, I have reviewed her PET scan from the end of September and her recent CT angiogram. I believe she had an enlarging lesion just in the left infrahilar area which has caused a local obstruction and has resulted in partial collapse of that lung. I have suggested that we consider local radiation treatment to this area, although I have discussed with the patient the risks involved. She has had extensive radiation in the 1970s and, although there is no obvious sequelae, it is difficult to know what her vital structures have received including her spinal cord, esophagus and heart structures. As such, these will all have to be carefully considered during treatment and I cannot say that there is no risk. I have discussed this with her, however, and she is understanding of the risks as she has lived with these risks all of her life. She would like us to proceed with treatment. Additionally, I have discussed this with Dr. Ruiz who is also in agreement with this approach. I would plan on coordinating this lady's treatment with a 40 simulation over the next 24-48 hours followed by initiation of treatment as soon as calculations are completed. Thank you again. MD AMAN Crowder/ /5:20 PM /6:08 PM
--- NOTE | 2016-12-02 20:06 | MB ---
cc: ANGELINE SERRATO DATE OF CONSULTATION 12/02/[address] Shon Currie REASON FOR CONSULTATION Evaluate for hemoptysis. HISTORY OF THE PRESENT ILLNESS Ms. Ramos is a 66-year-old female with history of non-small cell carcinoma of the lung. She had brain mets, had resection of the brain mets and received radiation treatment. She also received treatment with Tarceva and now she is taking Tagrisso. The patient came to the hospital with hemoptysis. She said first she coughed about a teaspoon then secondary two teaspoons had blood mixed with phlegm. She does have postnasal drip and usually brings up some phlegm. Did not have any fever or chills. No night sweats. No chest pain. With these symptoms she came to the hospital. She had a CT of the chest done that does not show any pulmonary embolism. It shows consolidation involving the left lower lobe and small left pleural effusion. She has a low-density material seen in the left lower lobe airway, possible mucus plugging, mass is not ruled out. LABORATORY DATA CBC showed WBC count 3.9, hemoglobin 9.5, hematocrit 28.7, MCV 94, platelet count 165. Sodium 135, potassium 4.6, chloride 100, CO2 26, BUN 12, creatinine 1.07. INR 1.0. PAST MEDICAL HISTORY Past medical history is significant for: 1. A history of CA of the lung, status post chemotherapy with Tarceva now she gets Tagrisso. 2. History of brain mets status post resection and radiation treatment. 3. History of Hodgkin disease status post radiation treatment. 4. History of renal cell carcinoma status post right nephrectomy. 5. History of hysterectomy. 6. Tonsillectomy. MEDICATIONS She is currently takin. Vancomycin 1 gram q. 18-hour. 2. Famotidine 20 mg a day. 3. Pravachol 20 mg a day. 4. Metoprolol 12.5 mg q. 12-hour. 5. Lovenox 40 mg daily. 6. Levothyroxine 75 mcg a day. 7. Aztreonam 2 grams q. 8-hour. 8. Albuterol/Atrovent nebulizer treatment. ALLERGIES SHE IS ALLERGIC TO ERYTHROMYCIN AND PENICILLIN. SOCIAL HISTORY She is , lives alone. Her sister came from [place] today with her. She has a history of smoking which she quit a long time ago. She used to drink until one year ago. FAMILY HISTORY Weight. She has history of smoking which she quit long time ago and she used to drink and 1 year ago. FAMILY HISTORY She has two stepchildren. REVIEW OF SYSTEMS She has lost weight. No fever or chills. No prior hemoptysis. No DVT or pulmonary embolism. PHYSICAL EXAMINATION GENERAL: Pleasant elderly female not in acute distress. VITAL SIGNS: Blood pressure 114/59, heart rate 94, respirations 16, temperature 97.9. HEENT: Pupils are equal and reactive to light. Oral mucosa, nasal mucosa normal. NECK: Supple. JVP not raised. CHEST: Air entry equal bilaterally. Has decreased breath sounds at the left base. CARDIOVASCULAR: S1-S2 normal. ABDOMEN: Benign. EXTREMITIES: No edema. IMPRESSION 1. Hemoptysis. 2. Left basal infiltrates. 3. Left lung mass with possible endobronchial lesion. 4. Non small cell carcinoma of the lung. She received Tarceva and now she gets Tagrisso. 5. History of mets to brain status post resection and radiation treatment. 6. History of Hodgkin's disease status post radiation. 7. History of renal cell carcinoma status post right nephrectomy. PLAN I haves discussed with the patient we will monitor her hemoptysis. Continue antibiotic. The patient is evaluated by Dr. Steffen Brunson and will consider for local radiation. Further treatment will depend on the course in the hospital. Thank you Dr. Shon Currie for this consultation. MD MILAGROS Epstein/JOHN PAUL /7:28 PM /7:41 PM
[2016-12-02] MEDS: METOPROLOL TARTRATE 25 MG TAB PO SCH (20:44)
--- NOTE | 2016-12-02 21:18 | MB ---
cc: POLO ALTMAN M.D., RICHARD DATE OF CONSULTATION 12/02/2016 REASON FOR CONSULTATION Elevated troponin levels. HISTORY OF THE PRESENT ILLNESS Ms. Ramos is a pleasant 66-year-old lady known to me with history of mild coronary artery disease by cardiac catheterization in March of 2014. History of mitral valve prolapse and mild to moderate mitral regurgitation with moderate tricuspid regurgitation and moderate pulmonary hypertension. She has history of metastatic non-small cell CA and recently was started on Tagrisso and over the past two days she has been progressively getting more short of breath with cough and then had hemoptysis and because of the shortness of breath and hemoptysis, she was advised by Dr. Ruiz, her oncologist and also primary physician, to come to the emergency room where she was admitted and she was found to be hypoxic. Denies chest pain per se. Denies palpitations, dizziness, syncope, however, she feels weak at times. Denies orthopnea or PND. Has occasional minimal left ankle swelling which is controlled with her hydrochlorothiazide therapy which treats his hypertension as well. PAST MEDICAL AND SURGICAL HISTORY Includes as mentioned above. 1. History of hypertension. 2. Metastases to the brain, spine and bilateral lung non-small cell cancer with new lesion noted on the left lower lobe. Being set for possible radiation therapy. 3. History of hypothyroidism. 4. History of brain metastases. 5. Seizure disorder. 6. Mild coronary artery disease. 7. Non-Hodgkin's lymphoma. 8. Renal cell cancer status post nephrectomy. 9. Status post bilateral salpingo-oophorectomy. 10. Right nephrectomy. 11. Resection of tumor of the left frontal lobe in December 2015. 12. Hysterectomy. 13. Splenectomy. 14. Tonsillectomy. MEDICATIONS At home include: 1. Ecotrin 81 milligrams daily. 2. Coreg 6.25 milligrams poi twice a day but she was only taking it once a day. 3. Famotidine 20 milligrams p.o. twice a day. 4. Hydrochlorothiazide 25 milligrams p.o. daily. 5. Keppra 750 milligrams p.o. twice a day. 6. Levothyroxine 75 micrograms p.o. daily. 7. Pravastatin 20 milligrams p.o. q.h.s. 8. Sertraline 25 milligrams p.o. daily. 9. Was started recently on Tagrisso 80 mg p.o. daily. SOCIAL HISTORY She used to smoke but stopped in 1982. No EtOH abuse or recreational drug use. She has a 10 pack-year history of smoking. FAMILY HISTORY Positive for diabetes, aortic aneurysm. Myocardial infarction and congestive heart failure. Diabetes. Hypertension. ALLERGIES ERYTHROMYCIN AND PENICILLIN. REVIEW OF SYSTEMS 12-point system review was unremarkable except what is mentioned in the history of present illness. PHYSICAL EXAMINATION GENERAL: A 66-year-old lady lying in bed in no apparent distress, alert and oriented times three, answering questions appropriately. VITAL SIGNS: Show blood pressure is 140/87 mmHg, pulse of 120 beats per minute and regular respiration at 18 per minute, afebrile. HEENT: Shows head is normocephalic. Pupils equal and active. Throat is within normal limits. NECK: Supple. No carotid bruit. No thyromegaly or jugular venous distension noted. LUNGS: Exam shows few crepitations at the right base and the left base as well. Otherwise clear. CARDIOVASCULAR: S1-S2 are normal with a faint S4 gallops. 1-2/6 systolic murmur at left sternal border and at the apex. ABDOMEN: Lax, nontender. Normoactive bowel sounds. No organomegaly or masses felt. EXTREMITIES: No clubbing, cyanosis or edema. PULSES: 2+ bilaterally and no bruit noted. NEUROLOGIC: Grossly intact with no focal deficits. RECTAL: Exam deferred. EKGs yesterday showed sinus rhythm at 88 beats per minute with a borderline LVH. No acute ischemic changes and a repeat EKG today showed sinus rhythm again at 88 beats per minute with no acute ischemic changes. LABORATORY DATA Initial troponin was 0.07, repeat was 1.23 and peaked to 1.46 and now down to 0.98. Chemistry shows a sodium 135, potassium 4.6, BUN of 12 and creatinine 1.07 with a GFR of 51. Lactic acid normal at 1.9 and 1.0. Calcium of 9.0. She came with a creatinine of 1.15 and a sodium of 128. Blood cultures so far negative. IMAGING Chest x-ray shows left basilar consolidation, possible pneumonia, tiny left pleural effusion and then she had a CT angiogram and this ruled out PE. However, indicating the consolidation of the left lower lobe with a small effusion, low density material seen involving the airway on the left lower lobe, this could be related to mucous plugging as reported. Coags were within normal limits. CBC shows a white count of 3.9, hemoglobin 9.5 and a platelet of 165. ASSESSMENT AND RECOMMENDATIONS Mild likely nonspecific troponin elevation with some renal impairment upon admission, however if this reflects minimal degree of ischemic event can be very well related to her hypoxic admission and demand ischemia. I doubt that her coronary artery disease that was evaluated less than 3 years ago invasively with a cardiac catheterization showing only mild disease has progressed with the fact that we were controlling quite well her lipids as an outpatient. At this point with her underlying multiple medical problems including her recurrent cancer and with her hemoptysis management, we will be conservative. She will need to resume her baby aspirin for now. If her hemoptysis stabilizes. An echocardiogram will be ordered to assess for any significant wall motion abnormality, new wall motion abnormality and also to reevaluate her valve pathology ( with a history of mild to moderate mitral regurgitation and moderate tricuspid regurgitation with moderate pulmonary hypertension). Hypertension and tachycardia. She has had episodes of hypotension at home and I suspect that she has some degree of autonomic dysfunction with orthostatic hypotension for which I agree with holding off Coreg for now and re-introducing metoprolol, however, the metoprolol dose will be increased to control her tachycardia. Hypertension. We will increase metoprolol otherwise hold off on the hydrochlorothiazide for now unless needed for better blood pressure control. Hyponatremia and possible dehydration related or medications related. Hold the hydrochlorothiazide and cautious IV hydration. Hyperlipidemia. Continue with pravastatin. It was being well control as an outpatient. Lipid panel fasting will be checked. Complete set of electrolytes will be checked as well as a TSH and free T4 levels (thyroid panel being checked because of her tachycardia and she is on levothyroxine). Regarding her malignancies, oncology and radiation oncology is on the case and further management per their recommendations. I thank you for the consultation. MD MARIA DOLORES Quinonez/JOHN PAUL /8:07 PM /8:34 PM
[2016-12-03] VITALS (9 sets, daily range): BP systolic 108–142; BP diastolic 48–86; PULSE 91–118; RESP 17–20; TEMP 96.8–97.9; O2SAT 90–98
[2016-12-03] MEDS ORDERED: diphenhydrAMINE HCL 25 MG CAP PO ONE ×2 (00:15→21:45)
[2016-12-03] MEDS: RESP: ALBUTEROL 2.5 MG/IPRATROPIUM 0.5 MG NEB (SCH) NEB ×7 (00:27→23:31)
[2016-12-03] MEDS ORDERED: KEPPRA 500 MG PO ONE (01:30)
[2016-12-03] MEDS ORDERED: OSIMERTINIB MESYLATE 80 MG PO ONE (01:30)
[2016-12-03] MEDS: LEVOTHYROXINE SODIUM 75 MCG TAB PO SCH (05:35)
[2016-12-03] MEDS: VANCOMYCIN 1,000 MG/NS 250 ML IV SCH ×4 (05:41→23:51)
[2016-12-03] MEDS: AZTREONAM INJ 2,000 MG in SODIUM CHLORIDE 0.9% INJ 100 ML IV SCH ×3 (07:42→22:51)
--- NOTE | 2016-12-03 08:52 | HHI.PR ---
Subjective Remarks Follow-up post obstructive pneumonia?/Elevated troponin I, questionable non-ST elevation RI 12/02/16-patient seen and examined, denies any episode of hemoptysis since admission. Denies any chest pain or shortness of breath. Troponin I trending down. Case discussed with oncology 12/03/16-patient seen and examined, she had one episode of hemoptysis this morning. Tachycardia but denies any chest pain or shortness of breath. Objective Vitals Vital Signs Date Time Temp Pulse Resp B/P (MAP) Pulse Ox O2 Delivery O2 Flow Rate FiO2 12/03/16 08:19 118 12/03/16 07:51 90 Nasal Cannula 3.00 12/03/16 07:28 Nasal Cannula 2.00 12/03/16 04:00 97.1 108 17 123/58 (79) 93 12/03/16 00:00 92 Room Air 21 12/03/16 00:00 108 12/02/16 23:40 97.1 112 18 123/89 (100) 91 12/02/16 20:00 98.1 110 18 130/60 (83) 93 12/02/16 20:00 93 Room Air 12/02/16 20:00 110 12/02/16 19:31 94 21 12/02/16 19:00 100 20 141/67 (91) 93 12/02/16 18:00 108 12/02/16 18:00 99 31 134/61 (85) 94 12/02/16 17:04 101 22 153/70 (97) 92 12/02/16 17:00 101 34 90 12/02/16 16:00 Nasal Cannula 2.00 12/02/16 16:00 98.0 98 18 125/60 (81) 92 12/02/16 16:00 92 Nasal Cannula 2.00 12/02/16 16:00 98 12/02/16 15:00 93 22 126/60 (82) 91 12/02/16 14:00 94 22 128/60 (82) 92 12/02/16 14:00 94 12/02/16 13:00 94 26 114/59 (77) 95 12/02/16 12:00 95 Nasal Cannula 2.00 12/02/16 12:00 99 12/02/16 12:00 97.9 99 25 120/57 (78) 95 12/02/16 11:00 93 23 121/58 (79) 95 12/02/16 10:00 98 12/02/16 10:00 92 21 120/56 (77) 94 12/02/16 09:00 93 18 128/61 (83) 97 12/02/16 08:50 95 Nasal Cannula 2.00 I/O 12/02/16 12/02/16 12/02/16 12/03/16 12/03/16 12/03/16 07:00 15:00 23:00 07:00 15:00 23:00 Intake Total 1750 ml 150 ml 1694 ml Output Total 500 ml Balance 1750 ml -350 ml 1694 ml Intake Oral 0 ml 150 ml IV Total 1750 ml 1694 ml Output Urine Total 500 ml # Voids 1 Result Diagram: 12/02/16 0410 12/02/16 0410 Imaging Last Impressions Chest X-Ray 12/01/16 1025 Signed Impressions: Service Date/Time: Thursday, December 01, 2016 10:32 - CONCLUSION: 1. Left basilar consolidation, possibly pneumonia. 2. Tiny left pleural effusion. Shon Gibbs MD CT Angiography 12/01/16 1025 Signed Impressions: Service Date/Time: Thursday, December 01, 2016 11:31 - CONCLUSION: 1. Motion degraded exam. 2. No pulmonary embolus. 3. Consolidation involving the left lower lobe with small left effusion. Low-density material seen involving the airways of the left lower lobe. This could relate to mucous plugging. Bernabe Marquez Jr., MD Objective Remarks GENERAL: NAD SKIN: Warm and dry. HEAD: Normocephalic. EYES: No scleral icterus. No injection or drainage. NECK: Supple, trachea midline. No JVD or lymphadenopathy. CARDIOVASCULAR: Regular rate and rhythm without murmurs, gallops, or rubs. RESPIRATORY: Breath sounds decreased R>L. No accessory muscle use. GASTROINTESTINAL: Abdomen soft, non-tender, nondistended. MUSCULOSKELETAL: No cyanosis, or edema. BACK: Nontender without obvious deformity. No CVA tenderness. A/P Problem List: (1) Postobstructive pneumonia ICD Code: J18.9 - Pneumonia, unspecified organism (2) Elevated troponin I level ICD Code: R74.8 - Abnormal levels of other serum enzymes (3) Lung cancer ICD Code: C34.90 - Malignant neoplasm of unspecified part of unspecified bronchus or lung Status: Chronic Assessment and Plan 66-year-old female with 1. 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 Continue Tagrisso 2. Post obstructive Pneumonia started on Vancomycin and Azactam, asked for blood culture, sputum culture, Legionella antigen and Pneumococcal antigen Case discussed this morning with Dr. Jesus Ruiz PET-CT images from 10/09 and comparing that to current CT imaging, it appears that the patient may have post obstructive pneumonia vs lesion. Appreciate input from radiation oncology will plan for local radiation within the next 24-48 hours 3. Elevated troponin I, questionable non-ST elevation RI Appreciate input from cardiology Cardiology 2-D echo pending Continue with Lopressor 4. Hodgkin's Disease 1973 no recurrence 5. Hypertension On Lopressor 25 mg twice a day Continue to hold Coreg and hydrochlorothiazide 6. Hypothyroidism On Synthroid 7. Hyperlipidemia Continue statin 8. DVT prophylaxis: Bilateral SCDs Problem Qualifiers (1) Lung cancer: Qualified Codes: C34.90 - Malignant neoplasm of unspecified part of unspecified bronchus or lung Shon Currie MD Dec 03, 2016 08:52
--- NOTE | 2016-12-03 08:56 | PD.ONC.PN ---
Subjective Subjective Remarks Patient reports coughing up naty blood Somewhat short of breath at rest Going for XRT simulation today Objective Data Date Time Temp Pulse Resp B/P (MAP) Pulse Ox O2 Delivery O2 Flow Rate FiO2 12/03/16 08:19 118 12/03/16 07:51 90 Nasal Cannula 3.00 12/03/16 07:28 Nasal Cannula 2.00 12/03/16 04:00 97.1 108 17 123/58 (79) 93 12/03/16 00:00 92 Room Air 21 12/03/16 00:00 108 12/02/16 23:40 97.1 112 18 123/89 (100) 91 12/02/16 20:00 98.1 110 18 130/60 (83) 93 12/02/16 20:00 93 Room Air 12/02/16 20:00 110 12/02/16 19:31 94 21 12/02/16 19:00 100 20 141/67 (91) 93 12/02/16 18:00 108 12/02/16 18:00 99 31 134/61 (85) 94 12/02/16 17:04 101 22 153/70 (97) 92 12/02/16 17:00 101 34 90 12/02/16 16:00 Nasal Cannula 2.00 12/02/16 16:00 98.0 98 18 125/60 (81) 92 12/02/16 16:00 92 Nasal Cannula 2.00 12/02/16 16:00 98 12/02/16 15:00 93 22 126/60 (82) 91 12/02/16 14:00 94 22 128/60 (82) 92 12/02/16 14:00 94 12/02/16 13:00 94 26 114/59 (77) 95 12/02/16 12:00 95 Nasal Cannula 2.00 12/02/16 12:00 99 12/02/16 12:00 97.9 99 25 120/57 (78) 95 12/02/16 11:00 93 23 121/58 (79) 95 12/02/16 10:00 98 12/02/16 10:00 92 21 120/56 (77) 94 12/02/16 09:00 93 18 128/61 (83) 97 12/02/16 08:50 95 Nasal Cannula 2.00 12/03/16 12/03/1617 07:00 15:00 23:00 Intake Total 1694 ml Balance 1694 ml Result Diagram: 12/02/1640912/02/16 0410 Culture Results Microbiology Date/Time Source Procedure Growth Status 12/01/16 11:18 Blood Peripheral Aerobic Blood Culture - Preliminary NO GROWTH IN 1 DAY Resulted 12/01/16 11:18 Blood Peripheral Anaerobic Blood Culture - Preliminary NO GROWTH IN 1 DAY Resulted 12/01/16 10:36 Blood Peripheral Aerobic Blood Culture - Preliminary NO GROWTH IN 1 DAY Resulted 12/01/16 10:36 Blood Peripheral Anaerobic Blood Culture - Preliminary NO GROWTH IN 1 DAY Resulted Administered Medications Medications (Trade) Dose Ordered Sig/Sami Route PRN Reason Start Time Stop Time Status Last Admin Dose Admin Famotidine (Pepcid) 20 mg DAILY PO 12/02/16 09:00 12/02/16 09:07 Levothyroxine Sodium (Synthroid) 75 mcg DAILY@0600 PO 12/02/16 06:00 12/03/16 05:35 Pravastatin Sodium (Pravachol) 20 mg DAILY PO 12/02/16 09:00 12/02/16 09:07 Sodium Chloride 1,000 ml @ 75 mls/hr [id number] IV 12/01/16 14:30 12/02/16 05:10 Sodium Chloride (NS Flush) 2 ml BID IV FLUSH 12/01/16 21:00 12/02/16 20:45 Aztreonam 2000 mg/ Sodium Chloride 100 ml @ 200 mls/hr Q8H IV 12/01/16 23:00 12/03/16 07:42 Albuterol/ Ipratropium (Duoneb Neb) 1 ampule Q4HR NEB NEB 12/01/16 16:00 12/03/16 00:27 Guaifenesin (Mucinex Er) 600 mg BID PO 12/01/16 21:00 12/02/16 20:44 Enoxaparin Sodium (Lovenox Inj) 40 mg Q24H SQ 12/02/16 08:30 12/02/16 09:07 Vancomycin HCl 1000 mg/Sodium Chloride 250 ml @ 250 mls/hr Q18H IV 12/02/16 12:00 12/03/16 05:41 Metoprolol Tartrate (Lopressor) 25 mg BID PO 12/02/16 21:00 12/02/16 20:44 Objective Remarks GENERAL: Elderly female on 3L NC; she appears mildly dyspneic with conversation SKIN: Warm and dry. HEAD: Normocephalic. EYES: No injection or drainage. NECK: Supple, trachea midline. CARDIOVASCULAR: + S1/S2. Tachycardia. RESPIRATORY: Diminished to lower lobes, left > right .on 3 L nasal cannula. GASTROINTESTINAL: Abdomen soft, non-tender, nondistended. EXTREMITIES: No cyanosis, or edema. NEUROLOGICAL: No obvious focal deficit. Awake, alert, and oriented x3. Assessment/Plan Problem List: (1) Lung cancer ICD Codes: C34.90 - Malignant neoplasm of unspecified part of unspecified bronchus or lung Status: Chronic Assessment 66 y/o female with NSCLC on Tagrisso admitted with SOB and coughing up bloody sputum. Plan 1. Patient is having radiation simulation today at 1 PM. Radiation to begin as soon as dosages are calculated. 2. The patient patient is continuing to cough up bloody sputum. Will stop Lovenox. 3. The fact that she is coughing up blood further supports the hypothesis that the problem is caused by the tumor. 4. Discussed with pt about code status. She does not wish to be placed on a ventilator. We will make her a DNR. She was reassured that if she were to change her mind she can reverse this at any time. Attending Statement The exam, history, and the medical decision-making described in the above note were completed with the assistance of the mid-level provider. I reviewed and agree with the findings presented. I attest that I had a [id number] encounter with the patient on the same day, and personally performed and documented my assessment and findings in the medical record. she is coughing up bright red blood and breathing a little more labored today. I spoke with Dr. Cortés and radiation to start JUSTINE. will stop lovenex and if continued bleeding place on amicar. Hopefully bleeding will stop and she will respond to her oral egfr inhibitor . she does not want to be placed on ventilator. Problem Qualifiers (1) Lung cancer: Qualified Codes: C34.90 - Malignant neoplasm of unspecified part of unspecified bronchus or lung Mily Ulloa Dec 03, 2016 08:56 Jesus Ruiz MD Dec 03, 2016 10:21
[2016-12-03] MEDS: SODIUM CHLORIDE 0.9% FLUSH 10 ML FLUSH IV FLUSH SCH ×2 (09:00→21:00)
[2016-12-03] MEDS: FAMOTIDINE 20 MG TAB PO SCH (09:24)
[2016-12-03] MEDS: guaiFENesin E.R. 600 MG TAB PO SCH ×2 (09:24→21:01)
[2016-12-03] MEDS: METOPROLOL TARTRATE 25 MG TAB PO SCH ×2 (09:25→21:01)
[2016-12-03] MEDS ORDERED: RESP: ALBUTEROL 2.5 MG/IPRATROPIUM 0.5 MG NEB (PRN) NEB (18:45)
[2016-12-03] MEDS ORDERED: methylPREDNISolone SOD SUCC 125 MG/2 ML VIAL IV PUSH ONE (19:35)
--- NOTE | 2016-12-03 20:16 | HHI.PR ---
Subjective Remarks 66 YOWF with Ca lung, Renal cell ca, Hodgekin Lymphoma has hemoptysis Mild SOB No fever No CP Had radiation simulation done Objective Vital Signs Vital Signs Date Time Temp Pulse Resp B/P (MAP) Pulse Ox O2 Delivery O2 Flow Rate FiO2 12/03/16 18:00 93 Nasal Cannula 4.00 12/03/16 15:00 96.8 97 20 108/58 (75) 93 12/03/16 12:00 93 12/03/16 11:50 91 20 121/86 (98) 92 12/03/16 08:19 118 12/03/16 07:51 90 Nasal Cannula 3.00 12/03/16 07:50 97.9 118 20 142/69 (93) 90 12/03/16 07:28 Nasal Cannula 2.00 12/03/16 04:00 97.1 108 17 123/58 (79) 93 12/03/16 00:00 92 Room Air 21 12/03/16 00:00 108 12/02/16 23:40 97.1 112 18 123/89 (100) 91 I/O 12/02/16 12/02/16 12/02/16 12/03/16 12/03/16 12/03/16 06:59 14:59 22:59 06:59 14:59 22:59 Intake Total 1750 ml 150 ml 1694 ml 670 ml Output Total 500 ml Balance 1750 ml -350 ml 1694 ml 670 ml Intake Oral 0 ml 150 ml 320 ml IV Total 1750 ml 1694 ml 350 ml Output Urine Total 500 ml # Voids 1 4 # Bowel Movements 1 Result Diagram: 12/02/1640912/02/16409 Objective Remarks GENERAL: MBMN WF,NAD SKIN: Warm and dry. HEAD: Normocephalic. EYES: No scleral icterus. No injection or drainage. NECK: Supple, trachea midline. No JVD or lymphadenopathy. CARDIOVASCULAR: Regular rate and rhythm without murmurs, gallops, or rubs. RESPIRATORY: Breath sounds equal bilaterally. No accessory muscle use. GASTROINTESTINAL: Abdomen soft, non-tender, nondistended. MUSCULOSKELETAL: No cyanosis, or edema. BACK: Nontender without obvious deformity. No CVA tenderness. A/P Assessment and Plan Hemoptysis Ca lung on chemo Left basal infilt vs mass COPD H/O renal cell ca H/O Hodgekin disease PLAN: Aerosol nebs Monitor hemoptysis Radiation in AM Supplement 02 Cont Abx Hilton Jones MD Dec 03, 2016 20:16
[2016-12-03] MEDS: PRAVASTATIN SOD 20 MG TAB PO SCH (21:00)
[2016-12-03] MEDS: SODIUM CHLOR 0.9% 1000 ML INJ 1,000 ML IV SCH (21:10)
[2016-12-03] MEDS: OSIMERTINIB MESYLATE 80 MG PO SCH (21:51)
[2016-12-03] MEDS: KEPPRA 500 MG PO SCH (21:51)
[2016-12-03] MEDS ORDERED: PHARMACY ORDERED LAB ONE (23:45)
[2016-12-03 23:52] LABS: BICARBONATE 21.9 MEQ/L (21.0-32.0); POTASSIUM 3.8 MEQ/L (3.5-5.1)
[2016-12-03 23:54] LABS: VANCOMYCIN TROUGH 17.6 MCG/ML (5.0-10.0)
[2016-12-04] VITALS (11 sets, daily range): BP systolic 111–126; BP diastolic 50–66; PULSE 96–125; RESP 16–20; TEMP 96.2–97.5; O2SAT 94–98
[2016-12-04] MEDS: RESP: ALBUTEROL 2.5 MG/IPRATROPIUM 0.5 MG NEB (SCH) NEB ×5 (02:39→19:53)
[2016-12-04] MEDS: LEVOTHYROXINE SODIUM 75 MCG TAB PO SCH (06:19)
[2016-12-04] MEDS: AZTREONAM INJ 2,000 MG in SODIUM CHLORIDE 0.9% INJ 100 ML IV SCH ×3 (06:19→22:32)
[2016-12-04 07:39] LABS: FREE T4 1.26 NG/DL (0.76-1.46)
[2016-12-04 07:40] LABS: MAGNESIUM 1.6 MG/DL (1.5-2.5)
[2016-12-04] MEDS: METOPROLOL TARTRATE 25 MG TAB PO SCH ×2 (08:56→20:45)
[2016-12-04] MEDS: guaiFENesin E.R. 600 MG TAB PO SCH ×2 (08:56→20:45)
[2016-12-04] MEDS: ASPIRIN EC 81 MG TABEC PO SCH (08:56)
[2016-12-04] MEDS: FAMOTIDINE 20 MG TAB PO SCH (08:56)
[2016-12-04] MEDS: SODIUM CHLORIDE 0.9% FLUSH 10 ML FLUSH IV FLUSH SCH ×2 (08:59→20:47)
[2016-12-04 09:12] LABS: AUTOMATED NEUTROPHIL # 3.3 TH/MM3 (1.8-7.7); BASOPHIL % 0.1 % (0.0-2.0); HEMATOCRIT 30.5 % (35.0-46.0); HEMO FLAGS DIFF FINAL; LYMPH % 8.3 % (9.0-44.0); LYMPHOCYTE # 0.3 TH/MM3 (1.0-4.8); MEAN CELL VOLUME 94.9 FL (80.0-100.0); MEAN CORPUSCULAR HEMOGLOBIN 31.2 PG (27.0-34.0); MEAN CORPUSCULAR HGB CONC 32.9 % (32.0-36.0); MONO % 1.7 % (0.0-8.0); NEUT % 89.9 % (16.0-70.0); PLATELET COUNT 185 TH/MM3 (150-450); RED BLOOD COUNT 3.21 MIL/MM3 (4.00-5.30); RED CELL DISTRIBUTION WIDTH 14.3 % (11.6-17.2); WHITE BLOOD COUNT 3.7 TH/MM3 (4.0-11.0)
--- NOTE | 2016-12-04 09:37 | PD.ONC.PN ---
Subjective Subjective Remarks Afebrile overnight Pt reports that she is breathing much better Has not coughed up anymore naty blood Going for her first XRT today at 4pm. Objective Data Date Time Temp Pulse Resp B/P (MAP) Pulse Ox O2 Delivery O2 Flow Rate FiO2 12/04/16 07:50 96.6 106 20 119/50 (73) 95 12/04/16 07:39 107 12/04/16 04:00 96.2 103 18 113/58 (76) 95 12/04/16 04:00 99 12/04/16 00:00 96.8 101 17 122/66 (84) 94 12/04/16 00:00 102 12/03/16 21:00 Nasal Cannula 4.00 12/03/16 20:27 97 Nasal Cannula 4.00 12/03/16 20:00 97.0 112 18 111/48 (69) 98 12/03/16 20:00 108 12/03/16 18:00 93 Nasal Cannula 4.00 12/03/16 15:00 96.8 97 20 108/58 (75) 93 12/03/16 12:00 93 12/03/16 11:50 91 20 121/86 (98) 92 Result Diagram: 12/04/16 0848 12/03/16 6137 Laboratory Results Laboratory Tests Test 12/03/16 23:05 12/04/16 06:33 12/04/16 08:48 Blood Urea Nitrogen 11 MG/DL Creatinine 0.89 MG/DL Random Glucose 104 MG/DL Calcium Level 8.1 MG/DL Sodium Level 137 MEQ/L Potassium Level 3.8 MEQ/L Chloride Level 106 MEQ/L Carbon Dioxide Level 21.9 MEQ/L Anion Gap 9 MEQ/L Estimat Glomerular Filtration Rate 63 ML/MIN Vancomycin Level Trough 17.6 MCG/ML Phosphorus Level 3.4 MG/DL Magnesium Level 1.6 MG/DL Triglycerides Level 38 MG/DL Cholesterol Level 145 MG/DL LDL Cholesterol 50 MG/DL HDL Cholesterol 87.0 MG/DL Cholesterol/HDL Ratio 1.66 RATIO Free Thyroxine 1.26 NG/DL Thyroid Stimulating Hormone 3rd Gen 0.470 uIU/ML White Blood Count 3.7 TH/MM3 Red Blood Count 3.21 MIL/MM3 Hemoglobin 10.0 GM/DL Hematocrit 30.5 % Mean Corpuscular Volume 94.9 FL Mean Corpuscular Hemoglobin 31.2 PG Mean Corpuscular Hemoglobin Concent 32.9 % Red Cell Distribution Width 14.3 % Platelet Count 185 TH/MM3 Mean Platelet Volume 8.9 FL Neutrophils (%) (Auto) 89.9 % Lymphocytes (%) (Auto) 8.3 % Monocytes (%) (Auto) 1.7 % Eosinophils (%) (Auto) 0.0 % Basophils (%) (Auto) 0.1 % Neutrophils # (Auto) 3.3 TH/MM3 Lymphocytes # (Auto) 0.3 TH/MM3 Monocytes # (Auto) 0.1 TH/MM3 Eosinophils # (Auto) 0.0 TH/MM3 Basophils # (Auto) 0.0 TH/MM3 CBC Comment DIFF FINAL Differential Comment Culture Results Microbiology Date/Time Source Procedure Growth Status 12/01/16 11:18 Blood Peripheral Aerobic Blood Culture - Preliminary NO GROWTH IN 2 DAYS Resulted 12/01/16 11:18 Blood Peripheral Anaerobic Blood Culture - Preliminary NO GROWTH IN 2 DAYS Resulted 12/01/16 10:36 Blood Peripheral Aerobic Blood Culture - Preliminary NO GROWTH IN 2 DAYS Resulted 12/01/16 10:36 Blood Peripheral Anaerobic Blood Culture - Preliminary NO GROWTH IN 2 DAYS Resulted 12/03/16 07:30 Sputum Expectorated Sputum Gram Stain Pending Received 12/03/16 07:30 Sputum Expectorated Sputum Sputum Culture Pending Received Administered Medications Medications (Trade) Dose Ordered Sig/Sami Route PRN Reason Start Time Stop Time Status Last Admin Dose Admin Famotidine (Pepcid) 20 mg DAILY PO 12/02/16 09:00 12/04/16 08:56 Levothyroxine Sodium (Synthroid) 75 mcg DAILY@0600 PO 12/02/16 06:00 12/04/16 06:19 Sodium Chloride 1,000 ml @ 75 mls/hr [id number] IV 12/01/16 14:30 12/03/16 21:10 Sodium Chloride (NS Flush) 2 ml BID IV FLUSH 12/01/16 21:00 12/02/16 20:45 Aztreonam 2000 mg/ Sodium Chloride 100 ml @ 200 mls/hr Q8H IV 12/01/16 23:00 12/04/16 06:19 Albuterol/ Ipratropium (Duoneb Neb) 1 ampule Q4HR NEB NEB 12/01/16 16:00 12/03/16 23:31 Guaifenesin (Mucinex Er) 600 mg BID PO 12/01/16 21:00 12/04/16 08:56 Vancomycin HCl 1000 mg/Sodium Chloride 250 ml @ 250 mls/hr Q18H IV 12/02/16 12:00 12/03/16 23:51 Metoprolol Tartrate (Lopressor) 25 mg BID PO 12/02/16 21:00 12/04/16 08:56 Patient Own Medication PT OWN MED: KEPPRA... DAILY@2100 PO 12/03/16 21:00 12/03/16 21:51 Patient Own Medication PT OWN MED: Osimerti... DAILY@2100 PO 12/03/16 21:00 12/03/16 21:51 Pravastatin Sodium (Pravachol) 20 mg DAILY@2100 PO 12/03/16 21:00 12/03/16 21:00 Aspirin (Ecotrin Ec) 81 mg DAILY PO 12/04/16 09:00 12/04/16 08:56 Objective Remarks GENERAL: Older female, sitting up in chair at bedside. She appears much more comfortable, and breathing much easier than yesterday. SKIN: Warm and dry. HEAD: Normocephalic. EYES: No injection or drainage. NECK: Supple, trachea midline. CARDIOVASCULAR: Regular rhythm. Tachycardia RESPIRATORY: Diminished to lower lobes, left > right. On 4 L nasal cannula. GASTROINTESTINAL: Abdomen soft, non-tender, nondistended. EXTREMITIES: No cyanosis, or edema. NEUROLOGICAL: No obvious focal deficit. Awake, alert, and oriented x3. Assessment/Plan Problem List: (1) Lung cancer ICD Codes: C34.90 - Malignant neoplasm of unspecified part of unspecified bronchus or lung Status: Chronic Assessment 66 y/o female with NSCLC on Tagrisso admitted with SOB and coughing up bloody sputum. Plan 1. Radiation planned for today at 4 PM. 2. She is no longer continuing to cough up bloody sputum; if this were to become a problem again, we will start her on Amicar. 3. Wean O2 as tolerated. Attending Statement The exam, history, and the medical decision-making described in the above note were completed with the assistance of the mid-level provider. I reviewed and agree with the findings presented. I attest that I had a [id number] encounter with the patient on the same day, and personally performed and documented my assessment and findings in the medical record. no further bleeding and radiation started today. Hopefully home in several days if stable. Has significant valvular disease but would not be a candidate for surgical corrections given current problems. management of cardiac issues will be with Dr. Bautista. If there is clinically significant hemoptysis will want to stop aspirin. Problem Qualifiers (1) Lung cancer: Qualified Codes: C34.90 - Malignant neoplasm of unspecified part of unspecified bronchus or lung Mily Ulloa Dec 04, 2016 09:37 Jesus Ruiz MD Dec 04, 2016 20:47
--- NOTE | 2016-12-04 09:46 | HHI.PR ---
Subjective Remarks Follow-up post obstructive pneumonia?/Elevated troponin I, questionable non-ST elevation [place] 12/02/16-patient seen and examined, denies any episode of hemoptysis since admission. Denies any chest pain or shortness of breath. Troponin I trending down. Case discussed with oncology 12/03/16-patient seen and examined, she had one episode of hemoptysis this morning. Tachycardia but denies any chest pain or shortness of breath. 12/04/16-patient seen and examined, she was treated yesterday d/t respiratory failure with Solu Medrol 125mg IV x 1 and Duo neb and reported improvement; She denies any shortness of breath this AM;she had radiation stimulation yesterday Objective Vitals Vital Signs Date Time Temp Pulse Resp B/P (MAP) Pulse Ox O2 Delivery O2 Flow Rate FiO2 12/04/16 07:50 96.6 106 20 119/50 (73) 95 12/04/16 07:39 107 12/04/16 04:00 96.2 103 18 113/58 (76) 95 12/04/16 04:00 99 12/04/16 00:00 96.8 101 17 122/66 (84) 94 12/04/16 00:00 102 12/03/16 21:00 Nasal Cannula 4.00 12/03/16 20:27 97 Nasal Cannula 4.00 12/03/16 20:00 97.0 112 18 111/48 (69) 98 12/03/16 20:00 108 12/03/16 18:00 93 Nasal Cannula 4.00 12/03/16 15:00 96.8 97 20 108/58 (75) 93 12/03/16 12:00 93 12/03/16 11:50 91 20 121/86 (98) 92 I/O 12/03/16 12/03/16 12/03/16 12/04/16 12/04/16 12/04/16 07:00 15:00 23:00 07:00 15:00 23:00 Intake Total 1694 ml 670 ml 450 ml Balance 1694 ml 670 ml 450 ml Intake Oral 320 ml IV Total 1694 ml 350 ml 450 ml # Voids 1 4 2 # Bowel Movements 1 Result Diagram: 12/04/16 0848 12/03/16 6553 Objective Remarks GENERAL: NAD SKIN: Warm and dry. HEAD: Normocephalic. EYES: No scleral icterus. No injection or drainage. NECK: Supple, trachea midline. No JVD or lymphadenopathy. CARDIOVASCULAR: Regular rate and rhythm without murmurs, gallops, or rubs. RESPIRATORY: Breath sounds decreased R>L. No accessory muscle use. GASTROINTESTINAL: Abdomen soft, non-tender, nondistended. MUSCULOSKELETAL: No cyanosis, or edema. BACK: Nontender without obvious deformity. No CVA tenderness. A/P Problem List: (1) Postobstructive pneumonia ICD Code: J18.9 - Pneumonia, unspecified organism (2) Elevated troponin I level ICD Code: R74.8 - Abnormal levels of other serum enzymes (3) Lung cancer ICD Code: C34.90 - Malignant neoplasm of unspecified part of unspecified bronchus or lung Status: Chronic Assessment and Plan 66-year-old female with 1. 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 Continue Tagrisso 2. Post obstructive Pneumonia started on Vancomycin and Azactam, asked for blood culture, sputum culture, Legionella antigen and Pneumococcal antigen Case discussed this morning with Dr. Jesus Ruiz PET-CT images from 10/09 and comparing that to current CT imaging, it appears that the patient may have post obstructive pneumonia vs lesion. Appreciate input from radiation oncology and plan for local radiation today 3. Elevated troponin I, questionable non-ST elevation [place] Appreciate input from cardiology Cardiology 2-D echo pending Continue with Lopressor 4. Hodgkin's Disease 1973 no recurrence 5. Hypertension On Lopressor 25 mg twice a day Continue to hold Coreg and hydrochlorothiazide 6. Hypothyroidism On Synthroid 7. Hyperlipidemia Continue statin 8. Respiratory failure Resolved and continue with Duo neb and consider Steroid therapy 9. DVT prophylaxis: Bilateral SCDs Problem Qualifiers (1) Lung cancer: Qualified Codes: C34.90 - Malignant neoplasm of unspecified part of unspecified bronchus or lung Shon Currie MD Dec 04, 2016 09:46
--- NOTE | 2016-12-04 12:42 | ECHRPT ---
Indication: Non-ST elevation (NSTEMI) myocardial infarction CONCLUSIONS Normal left ventricular size. Mild concentric left ventricular hypertrophy. The left ventricular systolic function is severely reduced with an estimated ejection fraction in th e range of 30-35%. The left ventricle is not well visualized. Severe mitral valve regurgitation. Calcification of both mitral valve leaflets. Mild aortic valve regurgitation. There is moderate to severe tricuspid valve regurgitation. The estimated pulmonary arterial pressure is 48 mmHg. The pulmonary valve is not well visualized. There is a moderate pericardial effusion present. BP: 113 / 58 HR: 99 Rhythm: Sinus MEASUREMENTS (Male / Female) Normal Values Technical Quality:Good 2D ECHO LV Diastolic Diameter PLAX 4.3 cm 4.2 - 5.9 / 3.9 - 5.3 cm LV Systolic Diameter PLAX 3.6 cm IVS Diastolic Thickness 0.9 cm 0.6 - 1.0 / 0.6 - 0.9 cm LVPW Diastolic Thickness 0.9 cm 0.6 - 1.0 / 0.6 - 0.9 cm LV Relative Wall Thickness 0.4 RV Internal Dim ED PLAX 2.5 cm LVOT Diameter 1.9 cm M-MODE Aortic Root Diameter MM 2.4 cm LA Systolic Diameter MM 3.6 cm LA Ao Ratio MM 1.5 AV Cusp Separation MM 1.7 cm DOPPLER AV Peak Velocity 116.0 cm/s AV Peak Gradient 5.4 mmHg AI Peak Velocity 281.0 cm/s AI Peak Gradient 31.6 mmHg AI Pressure Half Time 537.0 ms LVOT Peak Velocity 74.5 cm/s LVOT Peak Gradient 2.2 mmHg AV Area Cont Eq pk 1.8 cm MR Peak Velocity 480.0 cm/s MR Peak Gradient 92.2 mmHg LV E' Lateral Velocity 9.0 cm/s LV E' Septal Velocity 8.0 cm/s TR Peak Velocity 308.0 cm/s TR Peak Gradient 37.9 mmHg PV Peak Velocity 77.4 cm/s PV Peak Gradient 2.4 mmHg FINDINGS LEFT VENTRICLE Normal left ventricular size. Mild concentric left ventricular hypertrophy. The left ventricular systolic function is severely reduced with an estimated ejection fraction in th e range of 30-35%. The left ventricle is not well visualized. RIGHT VENTRICLE Normal right ventricular size and systolic function. LEFT ATRIUM The left atrial size is normal. RIGHT ATRIUM The right atrial size is normal. ATRIAL SEPTUM Normal atrial septal thickness without atrial level shunting by limited color doppler interrogation. AORTA The aortic root and proximal ascending aorta are normal in size on limited imaging. MITRAL VALVE Severe mitral valve regurgitation. Calcification of both mitral valve leaflets. AORTIC VALVE Mild aortic valve regurgitation. TRICUSPID VALVE There is moderate to severe tricuspid valve regurgitation. The estimated pulmonary arterial pressure is 48 mmHg. PULMONARY VALVE The pulmonary valve is not well visualized. VESSELS The inferior vena cava is normal in size. PERICARDIUM There is a moderate pericardial effusion present. Richardson Love MD, FACC (Electronically Signed) Final Date:04 December 2016 12:42
[2016-12-04] MEDS: SODIUM CHLOR 0.9% 1000 ML INJ 1,000 ML IV SCH ×2 (14:16→22:30)
[2016-12-04] MEDS: VANCOMYCIN 1,000 MG/NS 250 ML IV SCH ×2 (17:24)
--- NOTE | 2016-12-04 19:15 | HHI.PR ---
Subjective Remarks 66 YOWF with Ca lung, Renal cell ca, Hodgekin Lymphoma Mild SOB No fever No CP Had radiation treatment today No hemoptysis Objective Vital Signs Vital Signs Date Time Temp Pulse Resp B/P (MAP) Pulse Ox O2 Delivery O2 Flow Rate FiO2 12/04/16 16:43 95 Nasal Cannula 3.00 12/04/16 14:35 Nasal Cannula 3.00 21 12/04/16 12:15 98 Nasal Cannula 3.00 12/04/16 12:00 96 12/04/16 11:46 96.4 97 16 126/64 (84) 95 12/04/16 08:00 Nasal Cannula 4.00 12/04/16 07:50 96.6 106 20 119/50 (73) 95 12/04/16 07:39 107 12/04/16 04:00 96.2 103 18 113/58 (76) 95 12/04/16 04:00 99 12/04/16 00:00 96.8 101 17 122/66 (84) 94 12/04/16 00:00 102 12/03/16 21:00 Nasal Cannula 4.00 12/03/16 20:27 97 Nasal Cannula 4.00 12/03/16 20:00 97.0 112 18 111/48 (69) 98 12/03/16 20:00 108 I/O 12/03/16 12/03/16 12/03/16 12/04/16 12/04/16 12/04/16 07:00 15:00 23:00 07:00 15:00 23:00 Intake Total 1694 ml 670 ml 450 ml 420 ml 675 ml Balance 1694 ml 670 ml 450 ml 420 ml 675 ml Intake Oral 320 ml 420 ml IV Total 1694 ml 350 ml 450 ml 675 ml # Voids 1 4 2 2 # Bowel Movements 1 0 Result Diagram: 12/04/16 0848 12/03/16 9285 Objective Remarks GENERAL: MBMN WF,NAD SKIN: Warm and dry. HEAD: Normocephalic. EYES: No scleral icterus. No injection or drainage. NECK: Supple, trachea midline. No JVD or lymphadenopathy. CARDIOVASCULAR: Regular rate and rhythm without murmurs, gallops, or rubs. RESPIRATORY: Breath sounds equal bilaterally. No accessory muscle use. GASTROINTESTINAL: Abdomen soft, non-tender, nondistended. MUSCULOSKELETAL: No cyanosis, or edema. BACK: Nontender without obvious deformity. No CVA tenderness. A/P Assessment and Plan Hemoptysis Ca lung on chemo Left basal infilt vs mass COPD H/O renal cell ca H/O Hodgekin disease PLAN: Aerosol nebs Monitor hemoptysis Supplement 02 Cont Abx Radiation treatments Hilton Jones MD Dec 04, 2016 19:15
[2016-12-04] MEDS: PRAVASTATIN SOD 20 MG TAB PO SCH (20:45)
[2016-12-04] MEDS: KEPPRA 500 MG PO SCH (20:45)
[2016-12-04] MEDS: diphenhydrAMINE HCL 25 MG CAP PO PRN (20:45)
[2016-12-04] MEDS: OSIMERTINIB MESYLATE 80 MG PO SCH (21:00)
[2016-12-05] VITALS (10 sets, daily range): BP systolic 97–151; BP diastolic 51–78; PULSE 95–128; RESP 14–20; TEMP 96.9–98.2; O2SAT 91–97
[2016-12-05] MEDS: RESP: ALBUTEROL 2.5 MG/IPRATROPIUM 0.5 MG NEB (SCH) NEB ×4 (00:11→21:20)
[2016-12-05] MEDS: LEVOTHYROXINE SODIUM 75 MCG TAB PO SCH (06:01)
[2016-12-05] MEDS: AZTREONAM INJ 2,000 MG in SODIUM CHLORIDE 0.9% INJ 100 ML IV SCH (06:01)
[2016-12-05] MEDS: METOPROLOL TARTRATE 25 MG TAB PO SCH ×2 (07:45→20:24)
[2016-12-05] MEDS: ASPIRIN EC 81 MG TABEC PO SCH (07:45)
[2016-12-05] MEDS: guaiFENesin E.R. 600 MG TAB PO SCH ×2 (07:45→20:24)
[2016-12-05] MEDS: SODIUM CHLORIDE 0.9% FLUSH 10 ML FLUSH IV FLUSH SCH ×2 (07:46→20:33)
[2016-12-05] MEDS: FAMOTIDINE 20 MG TAB PO SCH (07:46)
--- NOTE | 2016-12-05 09:22 | PD.ONC.PN ---
Subjective Subjective Remarks no complaints. no further hemoptysis. Objective Data Date Time Temp Pulse Resp B/P (MAP) Pulse Ox O2 Delivery O2 Flow Rate FiO2 12/05/16 08:19 96 Nasal Cannula 3.00 12/05/16 08:00 98.0 103 14 115/61 (79) 91 12/05/16 07:47 93 Nasal Cannula 3.00 12/05/16 04:00 96.9 96 18 97/55 (69) 95 12/05/16 04:00 95 12/05/16 00:00 98.2 104 18 109/51 (70) 97 12/05/16 00:00 101 12/04/16 20:45 Nasal Cannula 3.00 12/04/16 20:00 97.5 111 18 111/66 (81) 97 12/04/16 20:00 114 12/04/16 19:56 97 Nasal Cannula 3.00 12/04/16 16:43 95 Nasal Cannula 3.00 12/04/16 16:00 125 12/04/16 14:35 Nasal Cannula 3.00 21 12/04/16 12:15 98 Nasal Cannula 3.00 12/04/16 12:00 96 12/04/16 11:46 96.4 97 16 126/64 (84) 95 12/05/16 12/05/16 12/05/16 07:00 15:00 23:00 Intake Total 120 ml Balance 120 ml Result Diagram: 12/04/16 0848 12/05/16 0722 Laboratory Results Laboratory Tests Test 12/05/16 07:22 Creatinine 1.09 MG/DL Estimat Glomerular Filtration Rate 50 ML/MIN Culture Results Microbiology Date/Time Source Procedure Growth Status 12/03/16 07:30 Sputum Expectorated Sputum Gram Stain - Final Resulted 12/03/16 07:30 Sputum Expectorated Sputum Sputum Culture - Preliminary HEAVY GROWTH NORMAL RESPIRATORY ISABELLA... Resulted Administered Medications Medications (Trade) Dose Ordered Sig/Saim Route PRN Reason Start Time Stop Time Status Last Admin Dose Admin Famotidine (Pepcid) 20 mg DAILY PO 12/02/16 09:00 12/05/16 07:46 Levothyroxine Sodium (Synthroid) 75 mcg DAILY@0600 PO 12/02/16 06:00 12/05/16 06:01 Sodium Chloride 1,000 ml @ 75 mls/hr [id number] IV 12/01/16 14:30 12/04/16 14:16 Sodium Chloride (NS Flush) 2 ml BID IV FLUSH 12/01/16 21:00 12/02/16 20:45 Aztreonam 2000 mg/ Sodium Chloride 100 ml @ 200 mls/hr Q8H IV 12/01/16 23:00 12/05/16 06:01 Albuterol/ Ipratropium (Duoneb Neb) 1 ampule Q4HR NEB NEB 12/01/16 16:00 12/05/16 08:18 Guaifenesin (Mucinex Er) 600 mg BID PO 12/01/16 21:00 12/05/16 07:45 Vancomycin HCl 1000 mg/Sodium Chloride 250 ml @ 250 mls/hr Q18H IV 12/02/16 12:00 12/04/16 17:24 Metoprolol Tartrate (Lopressor) 25 mg BID PO 12/02/16 21:00 12/05/16 07:45 Patient Own Medication PT OWN MED: KEPPRA... DAILY@2100 PO 12/03/16 21:00 12/04/16 20:45 Patient Own Medication PT OWN MED: Osimerti... DAILY@2100 PO 12/03/16 21:00 12/04/16 21:00 Pravastatin Sodium (Pravachol) 20 mg DAILY@2100 PO 12/03/16 21:00 12/04/16 20:45 Aspirin (Ecotrin Ec) 81 mg DAILY PO 12/04/16 09:00 12/05/16 07:45 Diphenhydramine HCl (Benadryl) 25 mg HS PRN PO INSOMNIA 12/04/16 20:00 12/04/16 20:45 Objective Remarks GENERAL: frail but not acutely ill SKIN: Warm and dry. HEAD: Normocephalic. EYES: No scleral icterus. No injection or drainage. NECK: Supple, trachea midline. No JVD or lymphadenopathy. LYMPHATIC: No adenopathy. CARDIOVASCULAR: Regular rate and rhythm without murmurs. RESPIRATORY: Breath sounds decreased left base GASTROINTESTINAL: Abdomen soft, non-tender, nondistended. EXTREMITIES: No cyanosis, or edema. MUSCULOSKELETAL: Adequate muscle tone. NEUROLOGICAL: No obvious focal deficit. Awake, alert, and oriented x3. PSYCHIATRIC: Appropriate mood and affect; insight and judgment normal. Assessment/Plan Problem List: (1) Lung cancer ICD Codes: C34.90 - Malignant neoplasm of unspecified part of unspecified bronchus or lung Status: Chronic Assessment 1: doing well with radiation and no further bleeding. will continue radiation and hopefully will be able to go home in several days. IV antibiotics can be stopped in the next few days and the patient can begin PO antibiotic. She may need oxygen at home. There is little else to do beyond this and continuing the [place] Plan 1. Radiation planned for today at 4 PM. 2. She is no longer continuing to cough up bloody sputum; if this were to become a problem again, we will start her on Amicar. 3. Wean O2 as tolerated. Problem Qualifiers (1) Lung cancer: Qualified Codes: C34.90 - Malignant neoplasm of unspecified part of unspecified bronchus or lung Jesus Ruiz MD Dec 05, 2016 09:22
--- NOTE | 2016-12-05 11:10 | HHI.PR ---
Subjective Remarks Follow-up post obstructive pneumonia?/Elevated troponin I, questionable non-ST elevation [place] 12/02/16-patient seen and examined, denies any episode of hemoptysis since admission. Denies any chest pain or shortness of breath. Troponin I trending down. Case discussed with oncology 12/03/16-patient seen and examined, she had one episode of hemoptysis this morning. Tachycardia but denies any chest pain or shortness of breath. 12/04/16-patient seen and examined, she was treated yesterday d/t respiratory failure with Solu Medrol 125mg IV x 1 and Duo neb and reported improvement; She denies any shortness of breath this AM;she had radiation stimulation yesterday 12/05/16-patient seen and examined, normal episode of hemoptysis 48 hours. She has first round of radiation yesterday. Episode of oxygen desaturation. Case discussed with Dr. Ruiz, oncology Objective Vitals Vital Signs Date Time Temp Pulse Resp B/P (MAP) Pulse Ox O2 Delivery O2 Flow Rate FiO2 12/05/16 08:19 96 Nasal Cannula 3.00 12/05/16 08:00 98.0 103 14 115/61 (79) 91 12/05/16 07:47 93 Nasal Cannula 3.00 12/05/16 04:00 96.9 96 18 97/55 (69) 95 12/05/16 04:00 95 12/05/16 00:00 98.2 104 18 109/51 (70) 97 12/05/16 00:00 101 12/04/16 20:45 Nasal Cannula 3.00 12/04/16 20:00 97.5 111 18 111/66 (81) 97 12/04/16 20:00 114 12/04/16 19:56 97 Nasal Cannula 3.00 12/04/16 16:43 95 Nasal Cannula 3.00 12/04/16 16:00 125 12/04/16 14:35 Nasal Cannula 3.00 21 12/04/16 12:15 98 Nasal Cannula 3.00 12/04/16 12:00 96 12/04/16 11:46 96.4 97 16 126/64 (84) 95 I/O 8/24/17 8/24/17 8/24/17 8/25/17 8/25/17 8/25/17 07:00 15:00 23:00 07:00 15:00 23:00 Intake Total 420 ml 1035 ml 120 ml Balance 420 ml 1035 ml 120 ml Intake Oral 420 ml 360 ml 120 ml IV Total 675 ml # Voids 2 2 4 1 # Bowel Movements 0 Result Diagram: 12/04/16 0848 12/05/16 0722 Imaging Last Impressions Chest X-Ray 12/01/16 1025 Signed Impressions: Service Date/Time: Thursday, December 01, 2016 10:32 - CONCLUSION: 1. Left basilar consolidation, possibly pneumonia. 2. Tiny left pleural effusion. Shon Gibbs MD CT Angiography 12/01/16 1025 Signed Impressions: Service Date/Time: Thursday, December 01, 2016 11:31 - CONCLUSION: 1. Motion degraded exam. 2. No pulmonary embolus. 3. Consolidation involving the left lower lobe with small left effusion. Low-density material seen involving the airways of the left lower lobe. This could relate to mucous plugging. Bernabe Marquez Jr., MD Objective Remarks GENERAL: NAD SKIN: Warm and dry. HEAD: Normocephalic. EYES: No scleral icterus. No injection or drainage. NECK: Supple, trachea midline. No JVD or lymphadenopathy. CARDIOVASCULAR: Regular rate and rhythm without murmurs, gallops, or rubs. RESPIRATORY: Breath sounds decreased R>L. No accessory muscle use. GASTROINTESTINAL: Abdomen soft, non-tender, nondistended. MUSCULOSKELETAL: No cyanosis, or edema. BACK: Nontender without obvious deformity. No CVA tenderness. A/P Problem List: (1) Postobstructive pneumonia ICD Code: J18.9 - Pneumonia, unspecified organism (2) Elevated troponin I level ICD Code: R74.8 - Abnormal levels of other serum enzymes (3) Lung cancer ICD Code: C34.90 - Malignant neoplasm of unspecified part of unspecified bronchus or lung Status: Chronic Assessment and Plan 66-year-old female with 1. 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 Continue Tagrisso 2. Post obstructive Pneumonia vs mass D/C both Vancomycin and Azactam and start Levaquin PET-CT images from 10/09 and comparing that to current CT imaging, it appears that the patient may have post obstructive pneumonia vs lesion. Appreciate input from radiation oncology and started local radiation 12/04/16 , and she will have radiation again today 12/05 3. Elevated troponin I, questionable non-ST elevation [place] Appreciate input from cardiology Cardiology 2-D echo with EF 30-35% Continue with Lopressor 4. Hodgkin's Disease 1973 no recurrence 5. Hypertension On Lopressor 25 mg twice a day Continue to hold Coreg and hydrochlorothiazide 6. Hypothyroidism On Synthroid 7. Hyperlipidemia Continue statin 8. Respiratory failure Resolved and continue with Duo neb Walk test prior to discharge 9. DVT prophylaxis: Bilateral SCDs Problem Qualifiers (1) Lung cancer: Qualified Codes: C34.90 - Malignant neoplasm of unspecified part of unspecified bronchus or lung Shon Currie MD Dec 05, 2016 11:10
[2016-12-05] MEDS: IBUPROFEN 400 MG TAB PO PRN (18:32)
--- NOTE | 2016-12-05 18:50 | HHI.PR ---
Subjective Remarks 66 YOWF with Ca lung, Renal cell ca, Hodgekin Lymphoma No fever No CP Had radiation treatment today No hemoptysis Breathing better Objective Vital Signs Vital Signs Date Time Temp Pulse Resp B/P (MAP) Pulse Ox O2 Delivery O2 Flow Rate FiO2 12/05/16 16:00 98.0 126 14 151/68 (95) 93 12/05/16 12:00 124 12/05/16 12:00 97.7 123 16 145/78 (100) 95 12/05/16 08:19 96 Nasal Cannula 3.00 12/05/16 08:00 98.0 103 14 115/61 (79) 91 12/05/16 08:00 113 12/05/16 07:47 93 Nasal Cannula 3.00 12/05/16 04:00 96.9 96 18 97/55 (69) 95 12/05/16 04:00 95 12/05/16 00:00 98.2 104 18 109/51 (70) 97 12/05/16 00:00 101 12/04/16 20:45 Nasal Cannula 3.00 12/04/16 20:00 97.5 111 18 111/66 (81) 97 12/04/16 20:00 114 12/04/16 19:56 97 Nasal Cannula 3.00 I/O 12/04/16 12/04/16 12/04/16 12/05/16 12/05/16 12/05/16 07:00 15:00 23:00 07:00 15:00 23:00 Intake Total 420 ml 1035 ml 120 ml 480 ml Balance 420 ml 1035 ml 120 ml 480 ml Intake Oral 420 ml 360 ml 120 ml 480 ml IV Total 675 ml # Voids 2 2 4 1 3 # Bowel Movements 0 0 Result Diagram: 12/04/16 0848 12/05/16 0722 Objective Remarks GENERAL: MBMN WF,NAD SKIN: Warm and dry. HEAD: Normocephalic. EYES: No scleral icterus. No injection or drainage. NECK: Supple, trachea midline. No JVD or lymphadenopathy. CARDIOVASCULAR: Regular rate and rhythm without murmurs, gallops, or rubs. RESPIRATORY: Breath sounds equal bilaterally. No accessory muscle use. GASTROINTESTINAL: Abdomen soft, non-tender, nondistended. MUSCULOSKELETAL: No cyanosis, or edema. BACK: Nontender without obvious deformity. No CVA tenderness. A/P Assessment and Plan Hemoptysis Ca lung on chemo Left basal infilt vs mass COPD H/O renal cell ca H/O Hodgekin disease PLAN: Aerosol nebs Monitor hemoptysis Supplement 02 Cont Abx Radiation treatments Hilton Jones MD Dec 05, 2016 18:50
[2016-12-05] MEDS: LACTOBACILLUS ACIDOPHILUS TAB PO SCH (20:23)
[2016-12-05] MEDS: PRAVASTATIN SOD 20 MG TAB PO SCH (20:24)
[2016-12-05] MEDS: OSIMERTINIB MESYLATE 80 MG PO SCH (20:26)
[2016-12-05] MEDS: KEPPRA 500 MG PO SCH (20:28)
[2016-12-06] VITALS (22 sets, daily range): BP systolic 120–166; BP diastolic 62–92; PULSE 101–136; RESP 19–29; TEMP 97.6–98.8; O2SAT 92–99
[2016-12-06] MEDS: RESP: ALBUTEROL 2.5 MG/IPRATROPIUM 0.5 MG NEB (SCH) NEB ×7 (00:45→23:34)
[2016-12-06] MEDS: SODIUM CHLOR 0.9% 1000 ML INJ 1,000 ML IV SCH (01:10)
[2016-12-06] MEDS ORDERED: METOPROLOL TARTRATE 25 MG TAB PO ONE (05:00)
[2016-12-06] MEDS ORDERED: methylPREDNISolone SOD SUCC 125 MG/2 ML VIAL IV PUSH ONE (05:00)
[2016-12-06] MEDS: LEVOTHYROXINE SODIUM 75 MCG TAB PO SCH (05:11)
[2016-12-06] MEDS: LEVOFLOXACIN 750 MG PREMIX INJ 150 ML IV SCH (05:12)
[2016-12-06 05:43] LABS: BLOOD, URINE NEG (NEG); COMMENT (UR) CULT NOT INDICATED; CULTURE IF INDICATED CULT NOT INDICATED; GLUCOSE,URINE NEG (NEG); KETONE, URINE NEG (NEG); MUCUS URINE FEW /lpf (OCC); NITRITE,URINE NEG (NEG); URINE COLOR LIGHT-YELLOW (YELLW/STRAW)
--- NOTE | 2016-12-06 06:00 | RADRPT ---
EXAM DATE/TIME: 12/06/2016 05:16 [place] COMPARISON: CHEST SINGLE AP, December 01, 2016, 10:32. INDICATIONS : Shortness of breath. MEDICAL HISTORY : Carcinoma, lung. Cardiovascular disease. Hypertension. SURGICAL HISTORY : Hysterectomy. Nephrectomy, left. Splenectomy. ENCOUNTER: Subsequent ACUITY: 4 - 6 days PAIN SCORE: 0/10 LOCATION: Bilateral chest FINDINGS: A single view of the chest demonstrates now complete opacification of left hemithorax. Minimal atelec tasis right lower lobe Osseous structures are intact. CONCLUSION: Complete opacification of the left hemithorax, considerable worsening since the Richardson Sanchez MD on December 06, 2016 at 5:57 Board Certified Radiologist. This report was verified electronically.
[2016-12-06 06:12] LABS: BLOOD GAS BASE EXCESS -7.3 mmol/L (-2-2); BLOOD GAS CARBOXYHEMOGLOBIN 1.4 % (0-4); BLOOD GAS HCO3 17 mmol/L (22-26); BLOOD GAS O2 HGB SATURATION 89 % (90-100); BLOOD GAS OXYGEN CONTENT 12.1 Vol % (12.0-20.0); BLOOD GAS PCO2 31 mmHg (38-42); BLOOD GAS PO2 63 mmHg (61-120); BLOOD GAS TOTAL HGB 9.6 G/DL (12.0-16.0); TEMP CORR TO 98.6
[2016-12-06 06:13] LABS: CRITICAL VALUE YES; DRAW SITE RT RADIAL; LITER FLOW 5 L/M; NUMBER OF ARTERIAL PUNCTURES 1; OXYGEN DEVICE NASAL CANNULA; STAT YES; ULNAR PULSE PRESENT
--- NOTE | 2016-12-06 06:21 | HHI.PR ---
Addendum to Inpatient Note Addendum Reason: Additional Documentation Additional Information The nurse called me at 0455 to notify me that the patient is short of breath, tachycardic, and requiring increased supplemental oxygen to maintain oxygen saturation. The patient is also complaining of burning with urination. I ordered a stat chest x-ray, a one-time dose of metoprolol 25 mg for heart rate sustaining over 140, Solu-Medrol 125 mg IV, ABGs, CBC, BMP, ABGs, UA with C&S if indicated, and started Levofloxacin 750 mg IV daily. I personally reviewed the chest x-ray once it was available and noted complete opacification of the left lung. I immediately discussed the case with my supervising physician, Dr. Luisa Capps. I ordered a transfer to ICU for closer monitoring. The patient is seen in her room and does not appear in any acute distress though she is mildly tachypneic. She tells me she has felt short of breath throughout the day but denies any chest discomfort. Left lung sounds are diminished and right lung sounds are clear. I discussed chest x-ray results with the patient and plan for treatment. She is agreeable. I placed a consultation for invasive radiology for thoracentesis. Discussed with charge nurse, bedside nurse and [facility]/HALICAT nurse - there was no need for a HALICAT as patient does not appear to be acutely decompensating at the time of my visit. She does require ICU monitoring given her extremely high risk for decompensation. . Earlene Arroyo Dec 06, 2016 06:21
[2016-12-06 06:26] LABS: AUTOMATED NEUTROPHIL # 5.4 TH/MM3 (1.8-7.7); BASOPHIL % 0.5 % (0.0-2.0); EOSINOPHIL % 0.1 % (0.0-4.0); HEMATOCRIT 29.8 % (35.0-46.0); HEMO FLAGS DIFF FINAL; LYMPH % 11.9 % (9.0-44.0); LYMPHOCYTE # 0.8 TH/MM3 (1.0-4.8); MEAN CELL VOLUME 94.7 FL (80.0-100.0); MEAN CORPUSCULAR HEMOGLOBIN 30.3 PG (27.0-34.0); MONO % 7.3 % (0.0-8.0); NEUT % 80.2 % (16.0-70.0); PLATELET COUNT 186 TH/MM3 (150-450); RED BLOOD COUNT 3.15 MIL/MM3 (4.00-5.30); RED CELL DISTRIBUTION WIDTH 14.9 % (11.6-17.2); WHITE BLOOD COUNT 6.7 TH/MM3 (4.0-11.0)
[2016-12-06] MEDS ORDERED: CHLORHEXIDINE GLUCONATE 2 % 1 PACK (2 CLOTHS)(extra cloths) TOPICAL PRN (06:45)
[2016-12-06 07:04] LABS: BICARBONATE 20.7 MEQ/L (21.0-32.0); POTASSIUM 3.9 MEQ/L (3.5-5.1)
[2016-12-06] MEDS ORDERED: GLUCAGON 1 MG/ML VIAL OTHER PRN (08:00)
[2016-12-06] MEDS ORDERED: DEXTROSE 50% IN WATER 50 ML VIAL(D50) IV PRN (08:00)
[2016-12-06] MEDS ORDERED: BUMETANIDE INJ 1 MG/4 ML VIAL IV PUSH ONE (08:00)
[2016-12-06] MEDS ORDERED: LEVOFLOXACIN 500 MG TAB PO SCH (09:00)
[2016-12-06] MEDS: INSULIN NovoLIN REGULAR SUPPLEMENTAL SCALE SQ SCH ×4 (09:00→21:00)
[2016-12-06] MEDS: ASPIRIN EC 81 MG TABEC PO SCH (09:00)
[2016-12-06] MEDS: guaiFENesin E.R. 600 MG TAB PO SCH ×2 (09:00→20:54)
[2016-12-06] MEDS: SODIUM CHLORIDE 0.9% FLUSH 10 ML FLUSH IV FLUSH SCH ×2 (09:00→20:53)
[2016-12-06] MEDS: LACTOBACILLUS ACIDOPHILUS TAB PO SCH ×2 (09:00→20:54)
--- NOTE | 2016-12-06 09:13 | MB ---
cc: DIANDRA GUO M.D. DATE OF CONSULTATION: 12/06/2016 DATE OF : 1950 REASON FOR CONSULTATION: The patient is a 66-year-old female with past medical history of metastatic [id number] lung cancer. Who was started on chemotherapy five weeks ago and currently is receiving radiation treatment, hypothyroidism, non-Hodgkin's lymphoma, renal cell CA status post nephrectomy, hypertension and hypothyroidism. She was admitted to [facility] on December 01 under hospitalist service for a hemoptysis and elevated troponins. She had a CT angiogram of the chest on December 01 which showed no evidence of pulmonary embolism, however, it showed consolidation involving the left lower lobe with small left effusion and possible mucous plugging involving the airways of the left lower lobe. She was started on broad-spectrum antibiotics for likely post obstructive pneumonia. The patient also started radiation treatment on December 04 and she underwent another radiation session yesterday. Due to elevated troponins. She had an echocardiogram on December 04 which showed reduced left ventricular function with ejection fraction of 30-35%. Moderate to severe tricuspid regurgitation and moderate pulmonary hypertension with estimated PA pressure 48 mmHg. She is being followed by pulmonary oncology and cardiology service. This morning the patient was found in respiratory distress tachycardiac requiring increased supplemental oxygen to maintain her O2 saturation. The chest x-ray this morning showed complete opacification of the left hemithorax. She was given Solu-Medrol 125 mg IV push. ABG was performed on 5 liters oxygen which showed a pH of 7.36, CO2 31, pAO2 63, bicarb 17, saturation 89%. She was transferred to [facility] for close observation and critical care medicine was consulted for critical care management. Per records, the patient is no code, do not resuscitate and I verified the code status with her. She does not want any mechanical ventilation or cardiac resuscitation in the event of cardiopulmonary arrest. The patient is currently on non-rebreather mask with O2 saturation of 93-96%. A she denies any nausea, vomiting and abdominal pain in addition she denies any cough or constitutional symptoms. PAST MEDICAL HISTORY: 1. Past medical history significant for non-small cell lung cancer status post Tarceva, now she is on Tagrisso. 2. History of brain mets status post resection and radiation treatment. 3. History of non-Hodgkin's disease status post radiation treatment. 4. Renal cell carcinoma status post right nephrectomy. 5. Previous tonsillectomy. ALLERGIES ERYTHROMYCIN PENICILLIN SOCIAL HISTORY Remote history of tobacco use, ex-drinker but quit 1 year ago. FAMILY HISTORY Reviewed and noncontributory. MEDICATIONS current medications include 1. DuoNeb. 2. Lopressor. 3. Pepcid. 4. Synthroid. REVIEW OF SYSTEMS As per HPI. Rest of the system unremarkable. PHYSICAL EXAMINATION: IN GENERAL: A 66-hour-old female lying in bed in mild to moderate respiratory distress. VITAL SIGNS: Afebrile, temperature 97.6, pulse tachycardiac with heart rate of 120. Blood pressure 160/79, saturation 93-96% on a non-rebreather mask. HEAD, EYES, EARS, NOSE, AND THROAT: Atraumatic, normocephalic pupil equal and reactive to accommodation, extraocular muscles intact. Conjunctiva pink. Nonicteric sclerae. Oral mucosa within normal. NECK: Supple. No JVD, adenopathy, thyromegaly. Trachea midline. CARDIOVASCULAR SYSTEM: Cardiovascular examination tachycardiac normal S1-S2. No murmurs, rubs or gallops noted. PULMONARY EXAMINATION: Diminished breath sounds on the left with few coarse breath sounds on the right. ABDOMEN: Soft, nontender, no distension, positive bowel sounds. EXTREMITIES: No cyanosis, or clubbing, no edema nor no focal sensory deficit. LABORATORY DATA Sodium 138, potassium 3.9, chloride 106, CO2 20, BUN 15, creatinine 0.97, glucose 127, WBC 6.7, hemoglobin 9.5, hematocrit 29.8, platelet count 186, INR 1.0, PT 10.5. RADIOGRAPHY A chest x-ray from this morning showed complete opacification left hemathorax. CT angiogram of the chest on December 01 showed no evidence of pulmonary embolism, consolidation involving the left lower lobe with a small left effusion and possible mucus plugging involving the airways at the left lower lobe. IMPRESSION 1. Acute hypoxemic respiratory failure. 2. Post obstructive pneumonia. 3. Stage IV [id number] lung cancer on chemotherapy and radiation treatment. 4. Elevated troponin possible non-STEMI. 5. Cardiomyopathy with ejection fraction of 30-35%. 6. A history of non-Hodgkin's disease. 7. History of brain metastasis, status post resection and radiation treatment. 8. Renal cell CA status post right nephrectomy. 9. Chronic obstructive pulmonary disease . 10. Hypertension. 11. Hypothyroidism. 12. Hyperlipidemia. RECOMMENDATIONS 1. Monitor neuro status closely and avoid any sedatives. 2. Continue with oxygen and maintain sats above 92%. Bronchodilators in the form of DuoNeb q. 4+ q. two p.r.n. for shortness of breath. In addition we will place on Pulmicort nebulizers 0.5 mg q. 12. 3. Start IV steroids Solu-Medrol 60 mg IV q. 8. 4. Noninvasive positive pressure ventilation for respiratory distress. 5. Dr. Jones from pulmonary service is following. The patient is high risk for a bronchoscopy given her respiratory status. 6. Monitor heart rate and blood pressure closely and maintain MAP greater than 65 mmHg. She is currently on Lopressor 25 mg p.o. b.i.d. Cardiology service is following her. 7. Monitor renal function Is and Os and electrolyte replacement as needed. Will DC IV fluids and diurese with Bumex 1 mg IV push x1. 8. Keep n.p.o. for now until respiratory status improves and place on Protonix 40 mg IV daily. 9. Continue with antibiotics. She is at currently on a Levaquin. Monitor for signs of infections which include fever and a WBC. Her sputum culture from December 03 showed normal respiratory miguel and blood cultures from December 01 showed no growth to date. 10. We will check strep pneumoniae and Legionella urinary antigen. Continue with sliding scale insulin with Accu-Chek q. 4-hour for glycemic control as the patient will be on IV steroids. 11. Continue with Synthroid 75 mcg 1 tablet daily. 12. Her TSH is 0.47 on December 04. 13. Monitor CBC. 14. Dr. Ruiz from oncology is following. 15. Further radiation treatment per radiation oncology. 16. GI prophylaxis with a poor Protonix 40 mg daily and DVT prophylaxis with SCDs. 17. The patient is not on chemical anticoagulation prophylaxis given her initial presentation was opened with hemoptysis. 18. Code status. The patient is a no code DNR. This was verified with the patient in the presence of nursing staff. 19. MD LORENZO Lott/juan /8:03 AM /8:54 AM
[2016-12-06] MEDS: RESP: BUDESONIDE 0.5 MG/2 ML NEB NEB SCH ×2 (11:33→20:16)
--- NOTE | 2016-12-06 13:25 | PD.ONC.PN ---
Subjective Subjective Remarks sob and had to be transferred to [facility] and place on BIPAP Objective Data Date Time Temp Pulse Resp B/P (MAP) Pulse Ox O2 Delivery O2 Flow Rate FiO2 12/06/16 09:30 96 50 12/06/16 07:36 96 Non-Rebreather 15.00 12/06/16 06:35 93 Simple Mask 10.00 12/06/16 06:30 134 12/06/16 04:32 92 Nasal Cannula 5.00 12/06/16 04:00 97.6 136 20 161/79 (106) 92 12/05/16 23:06 97.1 120 20 123/69 (87) 91 12/05/16 21:20 92 Nasal Cannula 3.00 12/05/16 21:00 123 12/05/16 21:00 97 Nasal Cannula 3.00 30 12/05/16 20:00 97.2 128 18 141/67 (91) 97 12/05/16 16:00 98.0 126 14 151/68 (95) 93 12/05/16 16:00 123 Result Diagram: 12/06/16 0614 12/06/16 0614 Laboratory Results Laboratory Tests Test 12/06/16 04:50 12/06/16 05:56 12/06/16 06:14 12/06/16 06:35 Urine Color LIGHT-YELLOW Urine Turbidity CLEAR Urine pH 5.0 Urine Specific [place] 1.009 Urine Protein NEG mg/dL Urine Glucose (UA) NEG mg/dL Urine Ketones NEG mg/dL Urine Occult Blood NEG Urine Nitrite NEG Urine Bilirubin NEG Urine Urobilinogen LESS THAN 2.0 MG/DL Urine Leukocyte Esterase NEG Urine RBC LESS THAN 1 /hpf Urine Mucus FEW /lpf Microscopic Urinalysis Comment CULT NOT INDICATED Blood Gas Puncture Site RT RADIAL Blood Gas Patient Temperature 98.6 Blood Gas HCO3 17 mmol/L Blood Gas Base Excess -7.3 mmol/L Blood Gas Oxygen Saturation 89 % Arterial Blood pH 7.36 Arterial Blood Partial Pressure CO2 31 mmHg Arterial Blood Partial Pressure O2 63 mmHg Arterial Blood Oxygen Content 12.1 Vol % Arterial Blood Carboxyhemoglobin 1.4 % Arterial Blood Methemoglobin 1.0 % Blood Gas Hemoglobin 9.6 G/DL Oxygen Delivery Device NASAL CANNULA Blood Gas Liter Flow 5 L/M White Blood Count 6.7 TH/MM3 Red Blood Count 3.15 MIL/MM3 Hemoglobin 9.5 GM/DL Hematocrit 29.8 % Mean Corpuscular Volume 94.7 FL Mean Corpuscular Hemoglobin 30.3 PG Mean Corpuscular Hemoglobin Concent 32.0 % Red Cell Distribution Width 14.9 % Platelet Count 186 TH/MM3 Mean Platelet Volume 8.7 FL Neutrophils (%) (Auto) 80.2 % Lymphocytes (%) (Auto) 11.9 % Monocytes (%) (Auto) 7.3 % Eosinophils (%) (Auto) 0.1 % Basophils (%) (Auto) 0.5 % Neutrophils # (Auto) 5.4 TH/MM3 Lymphocytes # (Auto) 0.8 TH/MM3 Monocytes # (Auto) 0.5 TH/MM3 Eosinophils # (Auto) 0.0 TH/MM3 Basophils # (Auto) 0.0 TH/MM3 CBC Comment DIFF FINAL Differential Comment Blood Urea Nitrogen 15 MG/DL Creatinine 0.97 MG/DL Random Glucose 127 MG/DL Calcium Level 8.2 MG/DL Sodium Level 138 MEQ/L Potassium Level 3.9 MEQ/L Chloride Level 106 MEQ/L Carbon Dioxide Level 20.7 MEQ/L Anion Gap 11 MEQ/L Estimat Glomerular Filtration Rate 57 ML/MIN Culture Results Microbiology Date/Time Source Procedure Growth Status 12/06/16 04:50 Urine Clean Catch Legionella Antigen Pending Received 12/06/16 04:50 Urine Clean Catch Streptococcus pneumoniae Antigen (M Pending Received Imaging Studies Last 24 hours Impressions Chest X-Ray 12/06/16 0000 Signed Impressions: Service Date/Time: Tuesday, December 06, 2016 05:16 - CONCLUSION: Complete opacification of the left hemithorax, considerable worsening since the Richardson Sanchez MD Administered Medications Medications (Trade) Dose Ordered Sig/Sami Route PRN Reason Start Time Stop Time Status Last Admin Dose Admin Levothyroxine Sodium (Synthroid) 75 mcg DAILY@0600 PO 12/02/16 06:00 12/06/16 05:11 Sodium Chloride (NS Flush) 2 ml BID IV FLUSH 12/01/16 21:00 12/02/16 20:45 Guaifenesin (Mucinex Er) 600 mg BID PO 12/01/16 21:00 12/05/16 20:24 Metoprolol Tartrate (Lopressor) 25 mg BID PO 12/02/16 21:00 12/05/16 20:24 Patient Own Medication PT OWN MED: KEPPRA... DAILY@2100 PO 12/03/16 21:00 12/05/16 20:28 Patient Own Medication PT OWN MED: Osimerti... DAILY@2100 PO 12/03/16 21:00 12/05/16 20:26 Pravastatin Sodium (Pravachol) 20 mg DAILY@2100 PO 12/03/16 21:00 12/05/16 20:24 Aspirin (Ecotrin Ec) 81 mg DAILY PO 12/04/16 09:00 12/05/16 07:45 Diphenhydramine HCl (Benadryl) 25 mg HS PRN PO INSOMNIA 12/04/16 20:00 12/04/16 20:45 Albuterol/ Ipratropium (Duoneb Neb) 1 ampule Q4HR NEB NEB 12/05/16 12:00 12/06/16 11:33 Lactobacillus Acidophilus (Lactinex) 1 tab Q12HR PO 12/05/16 21:00 12/05/16 20:23 Ibuprofen (Motrin) 400 mg Q8H PRN PO PAIN GREATER THAN 5 12/05/16 18:00 12/05/16 18:32 Levofloxacin/ Dextrose 150 ml @ 100 mls/hr Q24H IV 12/06/16 05:00 12/06/16 05:12 Budesonide (Pulmicort Respule Neb) 0.5 mg Q12HR NEB NEB 12/06/16 08:15 12/06/16 11:33 Objective Remarks GENERAL: ill, sob and has deteriorated over the past 24 hours. SKIN: Warm and dry. HEAD: Normocephalic. EYES: No scleral icterus. No injection or drainage. NECK: Supple, trachea midline. No JVD or lymphadenopathy. LYMPHATIC: No adenopathy. CARDIOVASCULAR: Regular rate and rhythm without murmurs. RESPIRATORY: decreased sounds left lung GASTROINTESTINAL: Abdomen soft, non-tender, nondistended. EXTREMITIES: No cyanosis, or edema. MUSCULOSKELETAL: muscle wasting NEUROLOGICAL: No obvious focal deficit. Awake, alert, and oriented x3. PSYCHIATRIC: Appropriate mood and affect; insight and judgment normal. Assessment/Plan Assessment 1: now with consolidation left lung. chest film reviewed and there is opacification of the left lung suggesting a proximal mucous plug, ?blood, ? tumor. She may require bronchoscopy to establish a dx and if possible restore patency to allow the lung to expand. I have spoken with Dr. Jones, Dr. Clark , Dr. Bautista, patient and family including mother. If she is not better by tomorrow she will undergo bronchoscopy and intubation as required to do procedure. If she ends up on a ventilator for days without chance of recovery she indicated she would want me to remove her from the ventilator to allow for a peaceful . Code status changed to allow intubation. Dr. Bautista feels there is a degree of CHF which he will address. At this point there is nothing further to do and hopefully we can restore patency to bronchi which are obstructed. 2: if we able to reexpand the lung will resume radiation to the left lung mass and continue Jesus Callaway MD Dec 06, 2016 13:25
[2016-12-06] MEDS: POTASSIUM CHLORIDE 20 MEQ CONTROLLED RELEASE TAB PO ONE ×2 (13:30→14:50)
[2016-12-06] MEDS: ALBUMIN HUMAN 25% 12.5 GM/50 ML BAGP IV SCH ×2 (14:45→21:24)
[2016-12-06] MEDS: PANTOPRAZOLE SODIUM 40 MG VIAL IV PUSH SCH (14:46)
[2016-12-06] MEDS: methylPREDNISolone SOD SUCC 40 MG/1 ML VIAL IV PUSH SCH ×2 (14:46→20:53)
[2016-12-06] MEDS: NITROGLYCERIN 2% OINT 1 GM PACKET TOPICAL SCH ×2 (14:47→20:54)
[2016-12-06] MEDS: LISINOPRIL 5 MG TAB PO SCH (14:49)
[2016-12-06] MEDS: BUMETANIDE INJ 1 MG/4 ML VIAL IV PUSH SCH ×2 (15:06→20:53)
--- NOTE | 2016-12-06 15:13 | EKG ---
Date Performed: 12/06/2016 Time Performed: 13:23:54 PTAGE: 66 years EKG: Sinus tachycardia Normal ECG except for rate PREVIOUS TRACING : 12/02/2016 00.19 Compared to prior tracing no significant change DOCTOR: Marily Rogers Interpretating Date/Time 12/06/2016 15:11:25
[2016-12-06 15:26] LABS: MAGNESIUM 1.6 MG/DL (1.5-2.5)
[2016-12-06] MEDS: RESP: ACETYLCYSTEINE 10% 30 ML NEB NEB SCH ×3 (15:58→23:35)
[2016-12-06] MEDS ORDERED: POTASSIUM CHLORIDE 20 MEQ PWD PACKET PO ONE (18:00)
--- NOTE | 2016-12-06 18:15 | HHI.PR ---
Subjective Remarks 66 YOWF with Ca lung, Renal cell ca, Hodgekin Lymphoma No fever No CPDeveloped atelatesis left lung Tr to IMC On BIPAP No hemoptysis Objective Vital Signs Vital Signs Date Time Temp Pulse Resp B/P (MAP) Pulse Ox O2 Delivery O2 Flow Rate FiO2 12/06/16 15:58 96 50 12/06/16 09:30 96 50 12/06/16 07:36 96 Non-Rebreather 15.00 12/06/16 06:35 93 Simple Mask 10.00 12/06/16 06:30 134 12/06/16 04:32 92 Nasal Cannula 5.00 12/06/16 04:00 97.6 136 20 161/79 (106) 92 12/05/16 23:06 97.1 120 20 123/69 (87) 91 12/05/16 21:20 92 Nasal Cannula 3.00 12/05/16 21:00 123 12/05/16 21:00 97 Nasal Cannula 3.00 30 12/05/16 20:00 97.2 128 18 141/67 (91) 97 I/O 12/05/16 12/05/16 12/05/16 12/06/16 12/06/16 12/06/16 07:00 15:00 23:00 07:00 15:00 23:00 Intake Total 120 ml 480 ml 960 ml 120 ml Output Total 1800 ml Balance 120 ml 480 ml 960 ml -1680 ml Intake Oral 120 ml 480 ml 360 ml 120 ml IV Total 600 ml Output Urine Total 1800 ml # Voids 1 3 7 # Bowel Movements 0 0 Result Diagram: 12/06/1661312/06/1614 Objective Remarks GENERAL: MBMN WF,NAD SKIN: Warm and dry. HEAD: Normocephalic. EYES: No scleral icterus. No injection or drainage. NECK: Supple, trachea midline. No JVD or lymphadenopathy. CARDIOVASCULAR: Regular rate and rhythm without murmurs, gallops, or rubs. RESPIRATORY: Breath sounds equal bilaterally. No accessory muscle use. GASTROINTESTINAL: Abdomen soft, non-tender, nondistended. MUSCULOSKELETAL: No cyanosis, or edema. BACK: Nontender without obvious deformity. No CVA tenderness. A/P Assessment and Plan Hemoptysis Ca lung on chemo Left basal infilt vs mass COPD H/O renal cell ca H/O Hodgekin disease Atelactesis left lung, likly mucous plugging PLAN: Aerosol nebs Monitor hemoptysis Supplement 02 Cont Abx Cont BIPAP Mucomyst nebs CXR in AM If gets worse will need intubation and bronch Pt agreeable Hilton Jones MD Dec 06, 2016 18:15
[2016-12-06] MEDS: PRAVASTATIN SOD 20 MG TAB PO SCH (20:54)
[2016-12-06] MEDS: CARVEDILOL 6.25 MG TAB PO SCH (20:54)
[2016-12-06] MEDS: POTASSIUM CHLORIDE 20 MEQ PWD PACKET PO SCH (20:58)
[2016-12-06] MEDS: OSIMERTINIB MESYLATE 80 MG PO SCH (21:00)
[2016-12-06] MEDS: KEPPRA 500 MG PO SCH (21:00)
[2016-12-06] MEDS ORDERED: POTASSIUM CHLORIDE 20 MEQ CONTROLLED RELEASE TAB PO SCH (21:00)
[2016-12-07] VITALS (23 sets, daily range): BP systolic 110–137; BP diastolic 56–73; PULSE 90–116; RESP 21–35; TEMP 98–98.6; O2SAT 91–99
[2016-12-07] MEDS: INSULIN NovoLIN REGULAR SUPPLEMENTAL SCALE SQ SCH ×4 (01:00→18:00)
[2016-12-07] MEDS: NITROGLYCERIN 2% OINT 1 GM PACKET TOPICAL SCH ×2 (02:00→10:05)
[2016-12-07] MEDS: RESP: ALBUTEROL 2.5 MG/IPRATROPIUM 0.5 MG NEB (SCH) NEB ×6 (03:25→23:15)
[2016-12-07] MEDS: RESP: ACETYLCYSTEINE 10% 30 ML NEB NEB SCH ×6 (03:25→23:15)
[2016-12-07] MEDS: CHLORHEXIDINE GLUCONATE 2 % 1 PACK (2 CLOTHS)(taper/protocol) TOPICAL SCH (04:00)
[2016-12-07 04:35] LABS: AUTOMATED NEUTROPHIL # 2.8 TH/MM3 (1.8-7.7); HEMATOCRIT 25.9 % (35.0-46.0); HEMO FLAGS DIFF FINAL; LYMPH % 8.6 % (9.0-44.0); LYMPHOCYTE # 0.3 TH/MM3 (1.0-4.8); MEAN CELL VOLUME 93.5 FL (80.0-100.0); MEAN CORPUSCULAR HEMOGLOBIN 30.3 PG (27.0-34.0); MEAN CORPUSCULAR HGB CONC 32.4 % (32.0-36.0); NEUT % 88.4 % (16.0-70.0); PLATELET COUNT 165 TH/MM3 (150-450); RED BLOOD COUNT 2.78 MIL/MM3 (4.00-5.30); RED CELL DISTRIBUTION WIDTH 14.2 % (11.6-17.2); WHITE BLOOD COUNT 3.2 TH/MM3 (4.0-11.0)
[2016-12-07 04:54] LABS: ANION GAP 11 MEQ/L (5-15); AST (GOT) 25 U/L (15-37); BICARBONATE 23.5 MEQ/L (21.0-32.0); BLOOD UREA NITROGEN 23 MG/DL (7-18); CHLORIDE 103 MEQ/L (98-107); GLOMERULAR FILTRATION RATE 47 ML/MIN (>89); MAGNESIUM 1.6 MG/DL (1.5-2.5); POTASSIUM 4.5 MEQ/L (3.5-5.1); SODIUM (NA) 137 MEQ/L (136-145)
[2016-12-07 04:55] LABS: ALT (GPT) 20 U/L (10-53)
[2016-12-07 04:57] LABS: ALKALINE PHOSPHATASE 71 U/L (45-117); TOTAL BILIRUBIN ADULT 0.3 MG/DL (0.2-1.0)
[2016-12-07] MEDS: LEVOFLOXACIN 750 MG PREMIX INJ 150 ML IV SCH (05:17)
[2016-12-07] MEDS: LEVOTHYROXINE SODIUM 75 MCG TAB PO SCH (05:17)
[2016-12-07] MEDS: methylPREDNISolone SOD SUCC 40 MG/1 ML VIAL IV PUSH SCH ×3 (05:17→20:29)
[2016-12-07] MEDS: RESP: BUDESONIDE 0.5 MG/2 ML NEB NEB SCH ×2 (07:11→19:43)
--- NOTE | 2016-12-07 08:08 | HHI.CCPN ---
Subjective Remarks/Hospital Course Patient is a 66-year-old female with past medical history of metastatic non- small-cell lung cancer. Who was started on chemotherapy five weeks ago and currently is receiving radiation treatment, hypothyroidism, non-Hodgkin's lymphoma, renal cell CA status post nephrectomy, hypertension and hypothyroidism. She was admitted to [facility] on December 01 under hospitalist service for a hemoptysis and elevated troponins. She had a CT angiogram of the chest on December 01 which showed no evidence of pulmonary embolism, however, it showed consolidation involving the left lower lobe with small left effusion and possible mucous plugging involving the airways of the left lower lobe. She was started on broad-spectrum antibiotics for likely post obstructive pneumonia. She is also on radiation treatment on December 04 and underwent another radiation session yesterday. An Echocardiogram on December 04 showed reduced left ventricular function with ejection fraction of 30-35%. Moderate to severe tricuspid regurgitation and moderate pulmonary hypertension with estimated PA pressure 48 mmHg. She is being followed by pulmonary oncology and cardiology service. This morning the patient was found in respiratory distress tachycardiac requiring increased supplemental oxygen to maintain her O2 saturation. The chest x-ray this morning showed complete opacification of the left hemithorax. She was given Solu-Medrol 125 mg IV push. ABG was performed on 5 liters oxygen which showed a pH of 7.36, CO2 31, pAO2 63, bicarb 17, saturation 89%. Patient was transferred to [facility] for close observation and critical care medicine was consulted for critical care management. Per records , the patient is no code, do not resuscitate and I verified the code status with her. She does not want any mechanical ventilation or cardiac resuscitation in the event of cardiopulmonary arrest. The patient is currently on non-rebreather mask with O2 saturation of 93-96%. A she denies any nausea, vomiting and abdominal pain in addition she denies any cough or constitutional symptoms. 12/07 Patient is off BIPAP feeling better on 6L simple mask with good sats. Afebrile. Objective Vital Signs Date Time Temp Pulse Resp B/P (MAP) Pulse Ox O2 Delivery O2 Flow Rate FiO2 12/07/16 07:12 97 Simple Mask 6.00 12/07/16 06:00 98 12/07/16 04:00 98.5 22 117/56 (76) 12/06/16 16:00 40 Intake and Output 12/07/16 12/07/16 12/08/16 08:00 16:00 00:00 Intake Total 240 ml Output Total 1000 ml Balance -760 ml Result Diagram: 12/07/16 0326 12/07/16 0326 Other Results Laboratory Tests Test 12/07/16 03:26 White Blood Count 3.2 TH/MM3 Red Blood Count 2.78 MIL/MM3 Hemoglobin 8.4 GM/DL Hematocrit 25.9 % Mean Corpuscular Volume 93.5 FL Mean Corpuscular Hemoglobin 30.3 PG Mean Corpuscular Hemoglobin Concent 32.4 % Red Cell Distribution Width 14.2 % Platelet Count 165 TH/MM3 Mean Platelet Volume 8.8 FL Neutrophils (%) (Auto) 88.4 % Lymphocytes (%) (Auto) 8.6 % Monocytes (%) (Auto) 3.0 % Eosinophils (%) (Auto) 0.0 % Basophils (%) (Auto) 0.0 % Neutrophils # (Auto) 2.8 TH/MM3 Lymphocytes # (Auto) 0.3 TH/MM3 Monocytes # (Auto) 0.1 TH/MM3 Eosinophils # (Auto) 0.0 TH/MM3 Basophils # (Auto) 0.0 TH/MM3 CBC Comment DIFF FINAL Differential Comment Blood Urea Nitrogen 23 MG/DL Creatinine 1.16 MG/DL Random Glucose 124 MG/DL Total Protein 6.0 GM/DL Albumin 2.7 GM/DL Calcium Level 7.5 MG/DL Phosphorus Level 3.2 MG/DL Magnesium Level 1.6 MG/DL Alkaline Phosphatase 71 U/L Aspartate Amino Transf (AST/SGOT) 25 U/L Alanine Aminotransferase (ALT/SGPT) 20 U/L Total Bilirubin 0.3 MG/DL Sodium Level 137 MEQ/L Potassium Level 4.5 MEQ/L Chloride Level 103 MEQ/L Carbon Dioxide Level 23.5 MEQ/L Anion Gap 11 MEQ/L Estimat Glomerular Filtration Rate 47 ML/MIN Imaging Last Impressions Chest X-Ray 12/06/16 0000 Signed Impressions: Service Date/Time: Tuesday, December 06, 2016 05:16 - CONCLUSION: Complete opacification of the left hemithorax, considerable worsening since the Richardson Sanchez MD CT Angiography 12/01/16 1025 Signed Impressions: Service Date/Time: Thursday, December 01, 2016 11:31 - CONCLUSION: 1. Motion degraded exam. 2. No pulmonary embolus. 3. Consolidation involving the left lower lobe with small left effusion. Low-density material seen involving the airways of the left lower lobe. This could relate to mucous plugging. Bernabe Marquez Jr., MD Objective Remarks GENERAL: Patient is 66 yo lying in bed in mild resp distress SKIN: Warm and dry. HEAD: Normocephalic. EYES: No scleral icterus. No injection or drainage. NECK: Supple, trachea midline. No JVD or lymphadenopathy. CARDIOVASCULAR: Regular rate and rhythm without murmurs, gallops, or rubs. RESPIRATORY: Breath sounds equal bilaterally. Diminished on left. GASTROINTESTINAL: Abdomen soft, non-tender, nondistended. MUSCULOSKELETAL: No cyanosis, or edema. Neuro: Awake and alert. A/P Assessment and Plan 1. Acute hypoxemic respiratory failure. 2. Opacification of left hemithorax 3. Post obstructive pneumonia. 4. Stage IV [id number] lung cancer on chemotherapy and radiation treatment. 5. Elevated troponin possible non-STEMI. 6. Cardiomyopathy with ejection fraction of 30-35%. 7. A history of non-Hodgkin's disease. 8. History of brain metastasis, status post resection and radiation treatment. 9. Renal cell CA status post right nephrectomy. 10. COPD . 11. Hypertension. 12. Hypothyroidism. 13. Hyperlipidemia. Plan Neuro: Monitor neuro status closely and avoid any sedatives. Pulm: Continue with oxygen and maintain sats above 92%. Bronchodilators(DuoNeb, Pulmicort) Mucomyst with nebs. IV steroids Solu -Medrol 60 mg IV q. 8. NIPPV PRN for respiratory distress. Pulm is following- Dr. Jones. Check CXR if no improvements might need bronch and intubation. Patient states if she end up intubated for bronch and dependent on ventilator for days then would like to be removed for vent and transition to comfort care CV: Monitor HR and BP and maintain MAP> 65 mmHg. On Coreg 6.25mg BID, Bumex 2mg BID, Kcl 20meq BID, Lisinopril 2.5mg daily , ASA 81mg daily Cards is following : Monitor renal function Is and Os and electrolyte replacement as needed. Continue with diuretics and K supplements as stated. GI: On Protonix 40 mg IV daily. ID: Continue with abx ( Levaquin). Monitor for signs of infections(fever and WBC). sputum culture showed normal respiratory miguel . blood cultures : NGTD strep pneumoniae and Legionella urinary antigen negative on 12/06 Endo: SSI with Accu-Chek q. 4-hour for glycemic control Continue with Synthroid 75 mcg daily. TSH: 0.47 on 12/04. Heme: Monitor CBC. Dr. Ruiz from oncology is following. Further radiation treatment per radiation oncology. GI prophylaxis with a poor Protonix 40 mg daily and DVT prophylaxis with SCDs. not on chemical anticoagulation prophylaxis given her initial presentation with hemoptysis. Level 3 Marilou Clark MD Dec 07, 2016 08:08
--- NOTE | 2016-12-07 08:42 | RADRPT ---
EXAM DATE/TIME: 12/07/2016 08:07 [place] COMPARISON: CT PULMONARY ANGIOGRAM, December 01, 2016, 11:31. CHEST SINGLE AP, December 06, 2016, 5:16. INDICATIONS : Shortness of breath. MEDICAL HISTORY : Carcinoma, bilateral lung. Cardiovascular disease. Hypertension. SURGICAL HISTORY : Axillary node removal, left. ENCOUNTER: Initial ACUITY: 1 week PAIN SCORE: 0/10 LOCATION: Bilateral chest FINDINGS: AP portable upright view of the chest again demonstrates complete opacification of the left hemithora x with deviation of the trachea to the left. There is an enlarging right-sided pleural effusion now m oderate in size. The remainder of the area of right lung is clear. The heart is shifted to the left a nd obscured by the adjacent airspace consolidation or fluid. Osseous structures are grossly unremarka ble. CONCLUSION: Stable opacification of the left hemithorax consistent with atelectasis and fluid. Enlarging right si ded pleural effusion. Cecilia Branham MD on December 07, 2016 at 8:39 Board Certified Radiologist. This report was verified electronically.
[2016-12-07] MEDS: POTASSIUM CHLORIDE 20 MEQ PWD PACKET PO SCH ×2 (09:00→20:32)
[2016-12-07] MEDS: BUMETANIDE INJ 1 MG/4 ML VIAL IV PUSH SCH ×2 (10:04→20:31)
[2016-12-07] MEDS: PANTOPRAZOLE SODIUM 40 MG VIAL IV PUSH SCH (10:04)
[2016-12-07] MEDS: guaiFENesin E.R. 600 MG TAB PO SCH ×2 (10:05→20:29)
[2016-12-07] MEDS: CARVEDILOL 6.25 MG TAB PO SCH ×2 (10:05→20:29)
[2016-12-07] MEDS: LACTOBACILLUS ACIDOPHILUS TAB PO SCH ×2 (10:05→20:29)
[2016-12-07] MEDS: SODIUM CHLORIDE 0.9% FLUSH 10 ML FLUSH IV FLUSH SCH ×2 (10:06→20:31)
[2016-12-07] MEDS: ASPIRIN EC 81 MG TABEC PO SCH (10:06)
--- NOTE | 2016-12-07 11:45 | EKG ---
Date Performed: 12/07/2016 Time Performed: 08:46:57 PTAGE: 66 years EKG: SINUS TACHYCARDIA ABNORMAL RHYTHM ECG PREVIOUS TRACING : 12/06/2016 13.23 Compared to prior tracing no significant change DOCTOR: Marily Rogers Interpretating Date/Time 12/07/2016 11:45:16
--- NOTE | 2016-12-07 12:07 | PD.ONC.PN ---
Subjective Subjective Remarks Patient remains afebrile Reports that she feels much better today than yesterday On 6 L simple mask Objective Data Date Time Temp Pulse Resp B/P (MAP) Pulse Ox O2 Delivery O2 Flow Rate FiO2 12/07/16 07:12 97 Simple Mask 6.00 12/07/16 06:30 Simple Mask 6.00 12/07/16 06:00 98 12/07/16 04:00 98.5 98 22 117/56 (76) 97 12/07/16 04:00 98 12/07/16 04:00 97 Partial Non-Rebreather 12/07/16 02:00 95 Partial Non-Rebreather 12/07/16 02:00 90 12/07/16 00:00 100 12/07/16 00:00 93 Partial Non-Rebreather 10.00 12/07/16 00:00 98.6 100 34 115/66 (82) 93 12/06/16 22:00 107 12/06/16 20:45 95 Simple Mask 10.00 12/06/16 20:17 98 Partial Rebreather 10.00 12/06/16 20:00 98.8 106 20 120/62 (81) 99 12/06/16 20:00 99 Partial Non-Rebreather 10.00 12/06/16 20:00 106 12/06/16 18:00 103 24 134/73 (93) 94 12/06/16 17:00 112 27 138/75 (96) 96 12/06/16 16:00 Bi-Pap 40 12/06/16 16:00 98.1 106 24 142/75 (97) 96 12/06/16 15:58 96 50 12/06/16 15:00 107 26 150/76 (100) 95 12/06/16 14:00 101 27 142/76 (98) 96 12/06/16 13:00 103 25 142/76 (98) 97 12/07/16 12/07/16 12/07/16 07:00 15:00 23:00 Intake Total 240 ml Output Total 1000 ml Balance -760 ml Result Diagram: 12/07/16 0326 12/07/16 0326 Laboratory Results Laboratory Tests Test 12/07/16 03:26 White Blood Count 3.2 TH/MM3 Red Blood Count 2.78 MIL/MM3 Hemoglobin 8.4 GM/DL Hematocrit 25.9 % Mean Corpuscular Volume 93.5 FL Mean Corpuscular Hemoglobin 30.3 PG Mean Corpuscular Hemoglobin Concent 32.4 % Red Cell Distribution Width 14.2 % Platelet Count 165 TH/MM3 Mean Platelet Volume 8.8 FL Neutrophils (%) (Auto) 88.4 % Lymphocytes (%) (Auto) 8.6 % Monocytes (%) (Auto) 3.0 % Eosinophils (%) (Auto) 0.0 % Basophils (%) (Auto) 0.0 % Neutrophils # (Auto) 2.8 TH/MM3 Lymphocytes # (Auto) 0.3 TH/MM3 Monocytes # (Auto) 0.1 TH/MM3 Eosinophils # (Auto) 0.0 TH/MM3 Basophils # (Auto) 0.0 TH/MM3 CBC Comment DIFF FINAL Differential Comment Blood Urea Nitrogen 23 MG/DL Creatinine 1.16 MG/DL Random Glucose 124 MG/DL Total Protein 6.0 GM/DL Albumin 2.7 GM/DL Calcium Level 7.5 MG/DL Phosphorus Level 3.2 MG/DL Magnesium Level 1.6 MG/DL Alkaline Phosphatase 71 U/L Aspartate Amino Transf (AST/SGOT) 25 U/L Alanine Aminotransferase (ALT/SGPT) 20 U/L Total Bilirubin 0.3 MG/DL Sodium Level 137 MEQ/L Potassium Level 4.5 MEQ/L Chloride Level 103 MEQ/L Carbon Dioxide Level 23.5 MEQ/L Anion Gap 11 MEQ/L Estimat Glomerular Filtration Rate 47 ML/MIN Culture Results Microbiology Date/Time Source Procedure Growth Status 12/06/16 04:50 Urine Clean Catch Legionella Antigen - Final PRESUMPTIVE NEGATIVE FOR LEGIONELLA P... Complete 12/06/16 04:50 Urine Clean Catch Streptococcus pneumoniae Antigen (M - Final PRESUMPTIVE NEGATIVE FOR STREPTOCOCCU... Complete Imaging Studies Last 24 hours Impressions Chest X-Ray 12/07/16 0000 Signed Impressions: Service Date/Time: Wednesday, December 07, 2016 08:07 - CONCLUSION: Stable opacification of the left hemithorax consistent with atelectasis and fluid. Enlarging right sided pleural effusion. Cecilia Branham MD Administered Medications Medications (Trade) Dose Ordered Sig/Sami Route PRN Reason Start Time Stop Time Status Last Admin Dose Admin Levothyroxine Sodium (Synthroid) 75 mcg DAILY@0600 PO 12/02/16 06:00 12/07/16 05:17 Sodium Chloride (NS Flush) 2 ml BID IV FLUSH 12/01/16 21:00 12/07/16 10:06 Guaifenesin (Mucinex Er) 600 mg BID PO 12/01/16 21:00 12/07/16 10:05 Patient Own Medication PT OWN MED: KEPPRA... DAILY@2100 PO 12/03/16 21:00 12/06/16 21:00 Patient Own Medication PT OWN MED: Osimerti... DAILY@2100 PO 12/03/16 21:00 12/06/16 21:00 Pravastatin Sodium (Pravachol) 20 mg DAILY@2100 PO 12/03/16 21:00 12/06/16 20:54 Aspirin (Ecotrin Ec) 81 mg DAILY PO 12/04/16 09:00 12/07/16 10:06 Diphenhydramine HCl (Benadryl) 25 mg HS PRN PO INSOMNIA 12/04/16 20:00 12/04/16 20:45 Albuterol/ Ipratropium (Duoneb Neb) 1 ampule Q4HR NEB NEB 12/05/16 12:00 12/07/16 11:51 Lactobacillus Acidophilus (Lactinex) 1 tab Q12HR PO 12/05/16 21:00 12/07/16 10:05 Ibuprofen (Motrin) 400 mg Q8H PRN PO PAIN GREATER THAN 5 12/05/16 18:00 12/05/16 18:32 Levofloxacin/ Dextrose 150 ml @ 100 mls/hr Q24H IV 12/06/16 05:00 12/07/16 05:17 Chlorhexidine Gluconate (Chlorhexidine 2% Cloth) 3 pack DAILY@04 TOPICAL 12/07/16 04:00 12/11/16 04:01 12/07/16 04:00 Methylprednisolone Sodium Succinate (SoluMEDROL INJ) 60 mg Q8HR IV PUSH 12/06/16 14:00 12/07/16 05:17 Budesonide (Pulmicort Respule Neb) 0.5 mg Q12HR NEB NEB 12/06/16 08:15 12/07/16 07:11 Pantoprazole Sodium (Protonix Inj) 40 mg Q24H IV PUSH 12/06/16 09:00 12/07/16 10:04 Acetylcysteine (Mucomyst 10% Neb) 2 ml Q4HR NEB NEB 12/06/16 12:45 12/07/16 11:51 Bumetanide (Bumex Inj) 2 mg BID IV PUSH 12/06/16 14:00 12/07/16 10:04 Albumin Human (Albumin 25% Inj) 12.5 gm BID@0830,2030 IV 12/06/16 13:30 12/06/16 21:24 Carvedilol (Coreg) 6.25 mg BID PO 12/06/16 21:00 12/07/16 10:05 Lisinopril (Prinivil) 2.5 mg DAILY@1400 PO 12/06/16 14:00 12/06/16 14:49 Nitroglycerin (Nitroglycerin 2% Oint) 0.5 inch Q6H TOPICAL 12/06/16 14:00 12/07/16 10:05 Potassium Chloride (KCl Powder) 20 meq BID PO 12/06/16 21:00 12/07/16 09:00 Objective Remarks GENERAL: Chronically ill appearing female sitting up in bed with visitors present. She does not appear to be acutely short of breath. SKIN: Warm and dry. HEAD: Normocephalic. EYES: No injection or drainage. NECK: Supple, trachea midline. CARDIOVASCULAR: enamel dipper shows sinus tach in the low 100s RESPIRATORY: Entire left lung diminished. GASTROINTESTINAL: Abdomen soft, non-tender, nondistended. EXTREMITIES: No cyanosis, or edema. MUSCULOSKELETAL: Muscle wasting NEUROLOGICAL: No obvious focal deficit. Awake, alert, and oriented x3. Assessment/Plan Assessment 1. The consolidation in the left lung persists; however the patient reports that she is feeling much better. 2. Will hold on bronchoscopy as long as she is improving Plan The exam, history, and the medical decision-making described in the above note were completed with the assistance of the mid-level provider. I reviewed and agree with the findings presented. I attest that I had a [id number] encounter with the patient on the same day, and personally performed and documented my assessment and findings in the medical record. she is more comfortable. I spoke with Dr. Clark and will hold on bronchoscopy as long as she is improving. At this point I am not sure we will be able to proceed with radiation therapy. situation reviewed with family including mother. Mily Ulloa Dec 07, 2016 12:07 Jesus Ruiz MD Dec 07, 2016 18:00
[2016-12-07] MEDS ORDERED: SODIUM CHLORIDE 0.9% IV ONE (12:45)
[2016-12-07] MEDS ORDERED: MAGNESIUM SULFATE IV ONE (12:45)
[2016-12-07] MEDS: ALBUMIN HUMAN 25% 12.5 GM/50 ML BAGP IV SCH ×2 (13:19→20:29)
[2016-12-07] MEDS: LISINOPRIL 5 MG TAB PO SCH (14:00)
--- NOTE | 2016-12-07 15:40 | HHI.PR ---
Subjective Remarks 66 YOWF with Ca lung, Renal cell ca, Hodgekin Lymphoma No fever No CPDeveloped atelatesis left lung No hemoptysis Breathing better weaned to NC CXR still has atelactesis left lung Objective Vital Signs Vital Signs Date Time Temp Pulse Resp B/P (MAP) Pulse Ox O2 Delivery O2 Flow Rate FiO2 12/07/16 13:11 92 Nasal Cannula 4.00 12/07/16 07:12 97 Simple Mask 6.00 12/07/16 06:30 Simple Mask 6.00 12/07/16 06:00 98 12/07/16 04:00 98.5 98 22 117/56 (76) 97 12/07/16 04:00 98 12/07/16 04:00 97 Partial Non-Rebreather 12/07/16 02:00 95 Partial Non-Rebreather 12/07/16 02:00 90 12/07/16 00:00 100 12/07/16 00:00 93 Partial Non-Rebreather 10.00 12/07/16 00:00 98.6 100 34 115/66 (82) 93 12/06/16 22:00 107 12/06/16 20:45 95 Simple Mask 10.00 12/06/16 20:17 98 Partial Rebreather 10.00 12/06/16 20:00 98.8 106 20 120/62 (81) 99 12/06/16 20:00 99 Partial Non-Rebreather 10.00 12/06/16 20:00 106 12/06/16 18:00 103 24 134/73 (93) 94 12/06/16 17:00 112 27 138/75 (96) 96 12/06/16 16:00 Bi-Pap 40 12/06/16 16:00 98.1 106 24 142/75 (97) 96 12/06/16 15:58 96 50 I/O 12/06/16 12/06/16 12/06/16 12/07/16 12/07/16 12/07/16 06:59 14:59 22:59 06:59 14:59 22:59 Intake Total 120 ml 240 ml Output Total 2650 ml 1000 ml Balance -2530 ml -760 ml Intake Oral 120 ml 240 ml Output Urine Total 2650 ml 1000 ml # Bowel Movements 0 0 Result Diagram: 12/07/16 0326 12/07/16 0326 Objective Remarks GENERAL: MBMN WF,NAD SKIN: Warm and dry. HEAD: Normocephalic. EYES: No scleral icterus. No injection or drainage. NECK: Supple, trachea midline. No JVD or lymphadenopathy. CARDIOVASCULAR: Regular rate and rhythm without murmurs, gallops, or rubs. RESPIRATORY: Breath sounds equal bilaterally. No accessory muscle use. GASTROINTESTINAL: Abdomen soft, non-tender, nondistended. MUSCULOSKELETAL: No cyanosis, or edema. BACK: Nontender without obvious deformity. No CVA tenderness. A/P Assessment and Plan Hemoptysis Ca lung on chemo Left basal infilt vs mass COPD H/O renal cell ca H/O Hodgekin disease Atelactesis left lung, likly mucous plugging PLAN: Aerosol nebs Monitor hemoptysis Supplement 02 Cont Abx Mucomyst nebs CXR in AM If gets worse will need intubation and bronch Pt agreeable Wean 02 Clinically better DW Hilton Armstrong MD Dec 07, 2016 15:40
[2016-12-07] MEDS: KEPPRA 500 MG PO SCH (20:31)
[2016-12-07] MEDS: OSIMERTINIB MESYLATE 80 MG PO SCH (20:32)
[2016-12-07] MEDS: PRAVASTATIN SOD 20 MG TAB PO SCH (20:35)
[2016-12-08] VITALS (13 sets, daily range): BP systolic 107–150; BP diastolic 59–80; PULSE 85–114; RESP 22–33; TEMP 97.8–98.7; O2SAT 91–94
[2016-12-08] MEDS: RESP: ACETYLCYSTEINE 10% 30 ML NEB NEB SCH ×5 (03:24→19:53)
[2016-12-08] MEDS: RESP: ALBUTEROL 2.5 MG/IPRATROPIUM 0.5 MG NEB (SCH) NEB ×5 (03:24→19:53)
[2016-12-08] MEDS: CHLORHEXIDINE GLUCONATE 2 % 1 PACK (2 CLOTHS)(taper/protocol) TOPICAL SCH (03:29)
[2016-12-08 04:16] LABS: AUTOMATED NEUTROPHIL # 4.1 TH/MM3 (1.8-7.7); BASOPHIL % 0.2 % (0.0-2.0); HEMATOCRIT 26.5 % (35.0-46.0); HEMO FLAGS DIFF FINAL; LYMPHOCYTE # 0.3 TH/MM3 (1.0-4.8); MEAN CELL VOLUME 93.2 FL (80.0-100.0); MEAN CORPUSCULAR HEMOGLOBIN 31.4 PG (27.0-34.0); MEAN CORPUSCULAR HGB CONC 33.6 % (32.0-36.0); MONO % 3.5 % (0.0-8.0); NEUT % 90.3 % (16.0-70.0); PLATELET COUNT 154 TH/MM3 (150-450); RED BLOOD COUNT 2.84 MIL/MM3 (4.00-5.30); RED CELL DISTRIBUTION WIDTH 14.6 % (11.6-17.2); WHITE BLOOD COUNT 4.5 TH/MM3 (4.0-11.0)
[2016-12-08 04:40] LABS: BICARBONATE 27.8 MEQ/L (21.0-32.0); MAGNESIUM 2.3 MG/DL (1.5-2.5); POTASSIUM 4.6 MEQ/L (3.5-5.1)
[2016-12-08] MEDS: INSULIN NovoLIN REGULAR SUPPLEMENTAL SCALE SQ SCH ×4 (06:00→16:26)
[2016-12-08] MEDS: methylPREDNISolone SOD SUCC 40 MG/1 ML VIAL IV PUSH SCH ×3 (06:52→21:01)
[2016-12-08] MEDS: LEVOTHYROXINE SODIUM 75 MCG TAB PO SCH (06:52)
--- NOTE | 2016-12-08 07:38 | HHI.CCPN ---
Subjective Remarks/Hospital Course Patient is a 66-year-old female with past medical history of metastatic non- small-cell lung cancer. Who was started on chemotherapy five weeks ago and currently is receiving radiation treatment, hypothyroidism, non-Hodgkin's lymphoma, renal cell CA status post nephrectomy, hypertension and hypothyroidism. She was admitted to [facility] on December 01 under hospitalist service for a hemoptysis and elevated troponins. She had a CT angiogram of the chest on December 01 which showed no evidence of pulmonary embolism, however, it showed consolidation involving the left lower lobe with small left effusion and possible mucous plugging involving the airways of the left lower lobe. She was started on broad-spectrum antibiotics for likely post obstructive pneumonia. She is also on radiation treatment on December 04 and underwent another radiation session yesterday. An Echocardiogram on December 04 showed reduced left ventricular function with ejection fraction of 30-35%. Moderate to severe tricuspid regurgitation and moderate pulmonary hypertension with estimated PA pressure 48 mmHg. She is being followed by pulmonary oncology and cardiology service. This morning the patient was found in respiratory distress tachycardiac requiring increased supplemental oxygen to maintain her O2 saturation. The chest x-ray this morning showed complete opacification of the left hemithorax. She was given Solu-Medrol 125 mg IV push. ABG was performed on 5 liters oxygen which showed a pH of 7.36, CO2 31, pAO2 63, bicarb 17, saturation 89%. Patient was transferred to [facility] for close observation and critical care medicine was consulted for critical care management. Per records , the patient is no code, do not resuscitate and I verified the code status with her. She does not want any mechanical ventilation or cardiac resuscitation in the event of cardiopulmonary arrest. The patient is currently on non-rebreather mask with O2 saturation of 93-96%. A she denies any nausea, vomiting and abdominal pain in addition she denies any cough or constitutional symptoms. 12/07 Patient is off BIPAP feeling better on 6L simple mask with good sats. Afebrile. 12/08 No events overnight. On 10L simple mask with good sats. Afebrile. Objective Vital Signs Date Time Temp Pulse Resp B/P (MAP) Pulse Ox O2 Delivery O2 Flow Rate FiO2 12/08/16 06:00 85 12/08/16 04:00 Simple Mask 10.00 12/08/16 04:00 98.4 33 124/63 (83) 94 12/06/16 16:00 40 Intake and Output 12/08/16 12/08/16 12/08/16 07:59 15:59 23:59 Intake Total 50 ml Output Total 1000 ml Balance -950 ml Result Diagram: 12/08/16 0331 12/08/16 0331 Other Results Laboratory Tests Test 12/08/16 03:31 White Blood Count 4.5 TH/MM3 Red Blood Count 2.84 MIL/MM3 Hemoglobin 8.9 GM/DL Hematocrit 26.5 % Mean Corpuscular Volume 93.2 FL Mean Corpuscular Hemoglobin 31.4 PG Mean Corpuscular Hemoglobin Concent 33.6 % Red Cell Distribution Width 14.6 % Platelet Count 154 TH/MM3 Mean Platelet Volume 9.2 FL Neutrophils (%) (Auto) 90.3 % Lymphocytes (%) (Auto) 6.0 % Monocytes (%) (Auto) 3.5 % Eosinophils (%) (Auto) 0.0 % Basophils (%) (Auto) 0.2 % Neutrophils # (Auto) 4.1 TH/MM3 Lymphocytes # (Auto) 0.3 TH/MM3 Monocytes # (Auto) 0.2 TH/MM3 Eosinophils # (Auto) 0.0 TH/MM3 Basophils # (Auto) 0.0 TH/MM3 CBC Comment DIFF FINAL Differential Comment Blood Urea Nitrogen 40 MG/DL Creatinine 1.58 MG/DL Random Glucose 135 MG/DL Calcium Level 8.3 MG/DL Phosphorus Level 3.6 MG/DL Magnesium Level 2.3 MG/DL Sodium Level 137 MEQ/L Potassium Level 4.6 MEQ/L Chloride Level 100 MEQ/L Carbon Dioxide Level 27.8 MEQ/L Anion Gap 9 MEQ/L Estimat Glomerular Filtration Rate 33 ML/MIN B-Type Natriuretic Peptide 829 PG/ML Imaging Last Impressions Chest X-Ray 12/07/16 0000 Signed Impressions: Service Date/Time: Wednesday, December 07, 2016 08:07 - CONCLUSION: Stable opacification of the left hemithorax consistent with atelectasis and fluid. Enlarging right sided pleural effusion. Cecilia Branham MD CT Angiography 12/01/16 1025 Signed Impressions: Service Date/Time: Thursday, December 01, 2016 11:31 - CONCLUSION: 1. Motion degraded exam. 2. No pulmonary embolus. 3. Consolidation involving the left lower lobe with small left effusion. Low-density material seen involving the airways of the left lower lobe. This could relate to mucous plugging. Bernabe Marquez Jr., MD Objective Remarks GENERAL: Patient is 66 yo lying in bed in mild resp distress SKIN: Warm and dry. HEAD: Normocephalic. EYES: No scleral icterus. No injection or drainage. NECK: Supple, trachea midline. No JVD or lymphadenopathy. CARDIOVASCULAR: Regular rate and rhythm without murmurs, gallops, or rubs. RESPIRATORY: Breath sounds equal bilaterally. Diminished on left. GASTROINTESTINAL: Abdomen soft, non-tender, nondistended. MUSCULOSKELETAL: No cyanosis, or edema. Neuro: Awake and alert. A/P Assessment and Plan 1. Acute hypoxemic respiratory failure. 2. Opacification of left hemithorax 3. Post obstructive pneumonia. 4. Stage IV [id number] lung cancer on chemotherapy and radiation treatment. 5. Elevated troponin possible non-STEMI. 6. Cardiomyopathy with ejection fraction of 30-35%. 7. A history of non-Hodgkin's disease. 8. History of brain metastasis, status post resection and radiation treatment. 9. Renal cell CA status post right nephrectomy. 10. COPD . 11. Hypertension. 12. Hypothyroidism. 13. Hyperlipidemia. Plan Neuro: Monitor neuro status closely and avoid any sedatives. Pulm: Continue with oxygen and maintain sats above 92%. Bronchodilators(DuoNeb, Pulmicort) Mucomyst with nebs. IV steroids Solu -Medrol 60 mg IV q. 8. NIPPV PRN for respiratory distress. Pulm is following- Dr. Jones. Check CXR today, Patient states if she end up intubated for bronch and dependent on ventilator for days then would like to be removed for vent and transition to comfort care CV: Monitor HR and BP and maintain MAP> 65 mmHg. On Coreg 6.25mg BID, decrease Bumex 1mg daily, Lisinopril 2.5mg daily, ASA 81mg daily Cards is following : Monitor renal function Is and Os and electrolyte replacement as needed. Cr: 1.58 today from 1.16. Decrease Bumex 1mg daily ( worsening renal function likely 2nd diuretics) GI: On Protonix 40 mg IV daily. ID: Continue with abx ( Levaquin). Monitor for signs of infections(fever and WBC). sputum culture 8/ 23 showed normal respiratory miguel . blood cultures : NGTD strep pneumoniae and Legionella urinary antigen negative on 12/06 Endo: SSI with Accu-Chek q. 4-hour for glycemic control Continue with Synthroid 75 mcg daily. TSH: 0.47 on 12/04. Heme: Monitor CBC. Dr. Ruiz from oncology is following. Further radiation treatment per radiation oncology. GI prophylaxis with a poor Protonix 40 mg daily and DVT prophylaxis with SCDs. not on chemical anticoagulation prophylaxis given her initial presentation with hemoptysis. Level 3 Marilou Clark MD Dec 08, 2016 07:38
[2016-12-08] MEDS: LACTOBACILLUS ACIDOPHILUS TAB PO SCH ×2 (08:17→21:00)
[2016-12-08] MEDS: CARVEDILOL 6.25 MG TAB PO SCH ×2 (08:17→21:00)
[2016-12-08] MEDS: guaiFENesin E.R. 600 MG TAB PO SCH ×2 (08:17→21:01)
[2016-12-08] MEDS: ALBUMIN HUMAN 25% 12.5 GM/50 ML BAGP IV SCH (08:18)
[2016-12-08] MEDS: BUMETANIDE INJ 1 MG/4 ML VIAL IV PUSH SCH (08:18)
[2016-12-08] MEDS: PANTOPRAZOLE SODIUM 40 MG VIAL IV PUSH SCH (08:18)
[2016-12-08] MEDS: SODIUM CHLORIDE 0.9% FLUSH 10 ML FLUSH IV FLUSH SCH ×2 (08:18→20:59)
--- NOTE | 2016-12-08 08:30 | RADRPT ---
EXAM DATE/TIME: 12/08/2016 07:50 [place] COMPARISON: CHEST SINGLE AP, December 07, 2016, 8:07. INDICATIONS : Shortness of breath. MEDICAL HISTORY : Carcinoma, lung. Cardiovascular disease. Hypertension. SURGICAL HISTORY : Hysterectomy. Nephrectomy, left. Splenectomy. ENCOUNTER: Subsequent ACUITY: 1 week PAIN SCORE: 0/10 LOCATION: Bilateral chest FINDINGS: A single portable frontal view of the chest shows complete opacification left hemithorax with volume loss the left hemithorax and shift of the heart towards that side. This is unchanged. Small right ple ural effusion and right basilar atelectasis versus infiltrate are also unchanged. Bony structures are unremarkable. CONCLUSION: Unchanged appearance with complete opacification of the left hemithorax, small right effusion, and mi ld right basilar atelectasis versus infiltrate. Bernabe Marquez Jr., MD on December 08, 2016 at 8:27 Board Certified Radiologist. This report was verified electronically.
[2016-12-08] MEDS: ASPIRIN EC 81 MG TABEC PO SCH (08:35)
[2016-12-08] MEDS: RESP: BUDESONIDE 0.5 MG/2 ML NEB NEB SCH (11:19)
[2016-12-08] MEDS: LISINOPRIL 5 MG TAB PO SCH (12:34)
--- NOTE | 2016-12-08 13:28 | PD.ONC.PN ---
Subjective Subjective Remarks remains comfortable but very limited in what she can do due to respiratory status. Objective Data Date Time Temp Pulse Resp B/P (MAP) Pulse Ox O2 Delivery O2 Flow Rate FiO2 12/08/16 12:00 97 12/08/16 12:00 97.8 97 24 137/65 (89) 93 12/08/16 12:00 94 Room Air 6.00 12/08/16 10:00 96 12/08/16 08:28 91 Nasal Cannula 6.00 12/08/16 08:00 103 22 136/66 (89) 94 12/08/16 08:00 103 12/08/16 08:00 94 Nasal Cannula 7.00 12/08/16 06:00 85 12/08/16 04:00 Simple Mask 10.00 12/08/16 04:00 91 12/08/16 04:00 98.4 91 33 124/63 (83) 94 12/08/16 02:00 86 12/08/16 00:00 92 12/08/16 00:00 Simple Mask 10.00 12/08/16 00:00 98.3 92 23 107/59 (75) 92 12/07/16 22:00 90 12/07/16 20:30 95 Simple Mask 10.00 12/07/16 20:00 Nasal Cannula 4.00 12/07/16 20:00 98.1 101 25 122/59 (80) 96 12/07/16 20:00 101 12/07/16 19:43 91 Nasal Cannula 4.00 12/07/16 19:00 100 30 137/67 (90) 92 12/07/16 18:00 104 35 130/66 (87) 92 12/07/16 17:00 102 30 131/73 (92) 93 12/07/16 16:00 97 32 121/59 (79) 91 12/07/16 16:00 Nasal Cannula 4.00 12/07/16 15:00 93 21 116/61 (79) 97 12/07/16 14:00 96 24 110/58 (75) 94 12/08/16 12/08/16 12/08/16 07:00 15:00 23:00 Intake Total 50 ml Output Total 1000 ml Balance -950 ml Result Diagram: 12/08/16 03312/08/16 0331 Laboratory Results Laboratory Tests Test 12/08/16 03:31 White Blood Count 4.5 TH/MM3 Red Blood Count 2.84 MIL/MM3 Hemoglobin 8.9 GM/DL Hematocrit 26.5 % Mean Corpuscular Volume 93.2 FL Mean Corpuscular Hemoglobin 31.4 PG Mean Corpuscular Hemoglobin Concent 33.6 % Red Cell Distribution Width 14.6 % Platelet Count 154 TH/MM3 Mean Platelet Volume 9.2 FL Neutrophils (%) (Auto) 90.3 % Lymphocytes (%) (Auto) 6.0 % Monocytes (%) (Auto) 3.5 % Eosinophils (%) (Auto) 0.0 % Basophils (%) (Auto) 0.2 % Neutrophils # (Auto) 4.1 TH/MM3 Lymphocytes # (Auto) 0.3 TH/MM3 Monocytes # (Auto) 0.2 TH/MM3 Eosinophils # (Auto) 0.0 TH/MM3 Basophils # (Auto) 0.0 TH/MM3 CBC Comment DIFF FINAL Differential Comment Blood Urea Nitrogen 40 MG/DL Creatinine 1.58 MG/DL Random Glucose 135 MG/DL Calcium Level 8.3 MG/DL Phosphorus Level 3.6 MG/DL Magnesium Level 2.3 MG/DL Sodium Level 137 MEQ/L Potassium Level 4.6 MEQ/L Chloride Level 100 MEQ/L Carbon Dioxide Level 27.8 MEQ/L Anion Gap 9 MEQ/L Estimat Glomerular Filtration Rate 33 ML/MIN B-Type Natriuretic Peptide 829 PG/ML Culture Results Microbiology Date/Time Source Procedure Growth Status 12/06/16 04:50 Urine Clean Catch Legionella Antigen - Final PRESUMPTIVE NEGATIVE FOR LEGIONELLA P... Complete 12/06/16 04:50 Urine Clean Catch Streptococcus pneumoniae Antigen (M - Final PRESUMPTIVE NEGATIVE FOR STREPTOCOCCU... Complete Imaging Studies Last 24 hours Impressions Chest X-Ray 12/08/16 0000 Signed Impressions: Service Date/Time: Thursday, December 08, 2016 07:50 - CONCLUSION: Unchanged appearance with complete opacification of the left hemithorax, small right effusion, and mild right basilar atelectasis versus infiltrate. Bernabe Marquez Jr., MD Administered Medications Medications (Trade) Dose Ordered Sig/Sami Route PRN Reason Start Time Stop Time Status Last Admin Dose Admin Levothyroxine Sodium (Synthroid) 75 mcg DAILY@0600 PO 12/02/16 06:00 12/08/16 06:52 Sodium Chloride (NS Flush) 2 ml BID IV FLUSH 12/01/16 21:00 12/08/16 08:18 Guaifenesin (Mucinex Er) 600 mg BID PO 12/01/16 21:00 12/08/16 08:17 Patient Own Medication PT OWN MED: KEPPRA... DAILY@2100 PO 12/03/16 21:00 12/07/16 20:31 Patient Own Medication PT OWN MED: Osimerti... DAILY@2100 PO 12/03/16 21:00 12/07/16 20:32 Pravastatin Sodium (Pravachol) 20 mg DAILY@2100 PO 12/03/16 21:00 12/07/16 20:35 Aspirin (Ecotrin Ec) 81 mg DAILY PO 12/04/16 09:00 12/07/16 10:06 Diphenhydramine HCl (Benadryl) 25 mg HS PRN PO INSOMNIA 12/04/16 20:00 12/04/16 20:45 Albuterol/ Ipratropium (Duoneb Neb) 1 ampule Q4HR NEB NEB 12/05/16 12:00 12/08/16 11:19 Lactobacillus Acidophilus (Lactinex) 1 tab Q12HR PO 12/05/16 21:00 12/08/16 08:17 Ibuprofen (Motrin) 400 mg Q8H PRN PO PAIN GREATER THAN 5 12/05/16 18:00 12/05/16 18:32 Chlorhexidine Gluconate (Chlorhexidine 2% Cloth) 3 pack DAILY@04 TOPICAL 12/07/16 04:00 12/11/16 04:01 12/08/16 03:29 Methylprednisolone Sodium Succinate (SoluMEDROL INJ) 60 mg Q8HR IV PUSH 12/06/16 14:00 12/08/16 12:34 Budesonide (Pulmicort Respule Neb) 0.5 mg Q12HR NEB NEB 12/06/16 08:15 12/08/16 11:19 Pantoprazole Sodium (Protonix Inj) 40 mg Q24H IV PUSH 12/06/16 09:00 12/08/16 08:18 Acetylcysteine (Mucomyst 10% Neb) 2 ml Q4HR NEB NEB 12/06/16 12:45 12/08/16 11:20 Albumin Human (Albumin 25% Inj) 12.5 gm BID@0830,2029 IV 12/06/16 13:30 12/08/16 08:18 Carvedilol (Coreg) 6.25 mg BID PO 12/06/16 21:00 12/08/16 08:17 Lisinopril (Prinivil) 2.5 mg DAILY@1400 PO 12/06/16 14:00 12/08/16 12:34 Bumetanide (Bumex Inj) 1 mg DAILY IV PUSH 12/08/16 09:00 12/08/16 08:18 Objective Remarks GENERAL: frail but stable SKIN: Warm and dry. HEAD: Normocephalic. EYES: No scleral icterus. No injection or drainage. NECK: Supple, trachea midline. No JVD or lymphadenopathy. LYMPHATIC: No adenopathy. CARDIOVASCULAR: Regular rate and rhythm without murmurs. RESPIRATORY: decreased sounds left lung GASTROINTESTINAL: Abdomen soft, non-tender, nondistended. EXTREMITIES: No cyanosis, or edema. MUSCULOSKELETAL: muscle wasting NEUROLOGICAL: No obvious focal deficit. Awake, alert, and oriented x3. PSYCHIATRIC: Appropriate mood and affect; insight and judgment normal. Assessment/Plan Assessment 1: she is stable but I do not anticipate that she will get any better unless the left lung reexpands. She can not continue indefinitely like this and will end up in the hospice care center or at home to if we can not resolve this problem. I have spoken with Dr Clark, Dr. Cortés, an Dr. Jones this am and the plan will be do a bronchoscopy in the next several days and if necessary she will go on the ventilator. If the issue can not be resolved and she becomes ventilator dependent she has given me permission to remove the ventilator and this is supported by family. We may have a short window of opportunity to address current problem. It will not last long due to her issues and medicines- example steroid. Will need to carefully monitor renal function as she has one kidney and the creatinine has increased. Plan The exam, history, and the medical decision-making described in the above note were completed with the assistance of the mid-level provider. I reviewed and agree with the findings presented. I attest that I had a epet-ny-boin encounter with the patient on the same day, and personally performed and documented my assessment and findings in the medical record. she is more comfortable. I spoke with Dr. Clark and will hold on bronchoscopy as long as she is improving. At this point I am not sure we will be able to proceed with radiation therapy. situation reviewed with family including mother. Jesus Ruiz MD Dec 08, 2016 13:27
[2016-12-08] MEDS: OSIMERTINIB MESYLATE 80 MG PO SCH (20:59)
[2016-12-08] MEDS: KEPPRA 500 MG PO SCH (21:00)
[2016-12-08] MEDS: PRAVASTATIN SOD 20 MG TAB PO SCH (21:01)
--- NOTE | 2016-12-08 21:12 | HHI.PR ---
Subjective Remarks 66 YOWF with Ca lung, Renal cell ca, Hodgekin Lymphoma No fever No CP Developed atelatesis left lung No hemoptysis Breathing better weaned to NC CXR still has atelactesis left lung Objective Vital Signs Vital Signs Date Time Temp Pulse Resp B/P (MAP) Pulse Ox O2 Delivery O2 Flow Rate FiO2 12/08/16 18:00 114 12/08/16 16:00 98.7 109 24 150/80 (103) 93 12/08/16 16:00 109 12/08/16 16:00 94 Nasal Cannula 6.00 12/08/16 14:00 89 12/08/16 12:00 97 12/08/16 12:00 97.8 97 24 137/65 (89) 93 12/08/16 12:00 94 Nasal Cannula 6.00 12/08/16 10:00 96 12/08/16 08:28 91 Nasal Cannula 6.00 12/08/16 08:00 103 22 136/66 (89) 94 12/08/16 08:00 103 12/08/16 08:00 94 Nasal Cannula 7.00 12/08/16 06:00 85 12/08/16 04:00 Simple Mask 10.00 12/08/16 04:00 91 12/08/16 04:00 98.4 91 33 124/63 (83) 94 12/08/16 02:00 86 12/08/16 00:00 92 12/08/16 00:00 Simple Mask 10.00 12/08/16 00:00 98.3 92 23 107/59 (75) 92 12/07/16 22:00 90 I/O 12/07/16 12/07/16 12/07/16 12/08/16 12/08/16 12/08/16 07:00 15:00 23:00 07:00 15:00 23:00 Intake Total 290 ml 240 ml 50 ml 50 ml 720 ml Output Total 1000 ml 1000 ml 1000 ml 1000 ml Balance -710 ml -760 ml -950 ml 50 ml -280 ml Intake Oral 240 ml 240 ml 720 ml IV Total 50 ml Albumin 50 ml 50 ml Output Urine Total 1000 ml 1000 ml 1000 ml 1000 ml # Bowel Movements 0 1 Result Diagram: 12/08/1633012/08/16330 Objective Remarks GENERAL: MBMN WF,NAD SKIN: Warm and dry. HEAD: Normocephalic. EYES: No scleral icterus. No injection or drainage. NECK: Supple, trachea midline. No JVD or lymphadenopathy. CARDIOVASCULAR: Regular rate and rhythm without murmurs, gallops, or rubs. RESPIRATORY: Breath sounds equal bilaterally. No accessory muscle use. GASTROINTESTINAL: Abdomen soft, non-tender, nondistended. MUSCULOSKELETAL: No cyanosis, or edema. BACK: Nontender without obvious deformity. No CVA tenderness. A/P Assessment and Plan Hemoptysis Ca lung on chemo Left basal infilt vs mass COPD H/O renal cell ca H/O Hodgekin disease Atelactesis left lung, likly mucous plugging PLAN: Aerosol nebs Monitor hemoptysis Supplement 02 Cont Abx Mucomyst nebs CXR in AM If gets worse will need intubation and bronch Pt agreeable Wean 02 DW If atelactesis does't improve, will need bronch in 2-3 days Hilton Jones MD Dec 08, 2016 21:12
[2016-12-09] VITALS (19 sets, daily range): BP systolic 115–144; BP diastolic 55–77; PULSE 74–136; RESP 14–30; TEMP 96.9–98.2; O2SAT 94–98
[2016-12-09] MEDS: RESP: ALBUTEROL 2.5 MG/IPRATROPIUM 0.5 MG NEB (SCH) NEB ×6 (00:28→23:15)
[2016-12-09] MEDS: RESP: ACETYLCYSTEINE 10% 30 ML NEB NEB SCH ×6 (00:29→23:15)
[2016-12-09] MEDS: CHLORHEXIDINE GLUCONATE 2 % 1 PACK (2 CLOTHS)(taper/protocol) TOPICAL SCH (04:00)
[2016-12-09 04:32] LABS: AUTOMATED NEUTROPHIL # 3.5 TH/MM3 (1.8-7.7); BASOPHIL % 0.1 % (0.0-2.0); HEMO FLAGS DIFF FINAL; LYMPH % 6.6 % (9.0-44.0); LYMPHOCYTE # 0.3 TH/MM3 (1.0-4.8); MEAN CELL VOLUME 93.8 FL (80.0-100.0); MEAN CORPUSCULAR HEMOGLOBIN 30.4 PG (27.0-34.0); MEAN CORPUSCULAR HGB CONC 32.4 % (32.0-36.0); MONO % 4.3 % (0.0-8.0); PLATELET COUNT 161 TH/MM3 (150-450); RED BLOOD COUNT 2.99 MIL/MM3 (4.00-5.30); RED CELL DISTRIBUTION WIDTH 14.5 % (11.6-17.2); WHITE BLOOD COUNT 3.9 TH/MM3 (4.0-11.0)
[2016-12-09 05:02] LABS: BICARBONATE 30.5 MEQ/L (21.0-32.0); POTASSIUM 3.9 MEQ/L (3.5-5.1)
[2016-12-09] MEDS: INSULIN NovoLIN REGULAR SUPPLEMENTAL SCALE SQ SCH ×4 (05:22→16:33)
[2016-12-09] MEDS: LEVOTHYROXINE SODIUM 75 MCG TAB PO SCH (05:23)
[2016-12-09] MEDS: methylPREDNISolone SOD SUCC 40 MG/1 ML VIAL IV PUSH SCH ×3 (05:23→21:57)
[2016-12-09] MEDS: LEVOFLOXACIN 750 MG PREMIX INJ 150 ML IV SCH (05:24)
--- NOTE | 2016-12-09 07:18 | HHI.CCPN ---
Subjective Remarks/Hospital Course Patient is a 66-year-old female with past medical history of metastatic non- small-cell lung cancer. Who was started on chemotherapy five weeks ago and currently is receiving radiation treatment, hypothyroidism, non-Hodgkin's lymphoma, renal cell CA status post nephrectomy, hypertension and hypothyroidism. She was admitted to [facility] on December 01 under hospitalist service for a hemoptysis and elevated troponins. She had a CT angiogram of the chest on December 01 which showed no evidence of pulmonary embolism, however, it showed consolidation involving the left lower lobe with small left effusion and possible mucous plugging involving the airways of the left lower lobe. She was started on broad-spectrum antibiotics for likely post obstructive pneumonia. She is also on radiation treatment on December 04 and underwent another radiation session yesterday. An Echocardiogram on December 04 showed reduced left ventricular function with ejection fraction of 30-35%. Moderate to severe tricuspid regurgitation and moderate pulmonary hypertension with estimated PA pressure 48 mmHg. She is being followed by pulmonary oncology and cardiology service. This morning the patient was found in respiratory distress tachycardiac requiring increased supplemental oxygen to maintain her O2 saturation. The chest x-ray this morning showed complete opacification of the left hemithorax. She was given Solu-Medrol 125 mg IV push. ABG was performed on 5 liters oxygen which showed a pH of 7.36, CO2 31, pAO2 63, bicarb 17, saturation 89%. Patient [place] [facility] [place] and critical care medicine was consulted for critical care management. Per records , the patient is no code, do not resuscitate and I verified the code status with her. She does not want any mechanical ventilation or cardiac resuscitation in the event of cardiopulmonary arrest. The patient is currently on non-rebreather mask with O2 saturation of 93-96%. A she denies any nausea, vomiting and abdominal pain in addition she denies any cough or constitutional symptoms. 12/07 Patient is off BIPAP feeling better on 6L simple mask with good sats. Afebrile. 12/08 No events overnight. On 10L simple mask with good sats. Afebrile. 12/09 No events overnight. On 8L simple mask Afebrile. Objective Vital Signs Date Time Temp Pulse Resp B/P (MAP) Pulse Ox O2 Delivery O2 Flow Rate FiO2 12/09/16 06:00 113 12/09/16 04:00 95 Simple Mask 8.00 12/09/16 04:00 98.2 30 128/68 (88) 12/06/16 16:00 40 Intake and Output 12/09/16 12/09/16 12/10/16 08:00 16:00 00:00 Intake Total 0 ml Output Total 750 ml Balance -750 ml Result Diagram: 12/09/16 0421 12/09/16 0421 Other Results Laboratory Tests Test 12/09/16 04:21 White Blood Count 3.9 TH/MM3 Red Blood Count 2.99 MIL/MM3 Hemoglobin 9.1 GM/DL Hematocrit 28.0 % Mean Corpuscular Volume 93.8 FL Mean Corpuscular Hemoglobin 30.4 PG Mean Corpuscular Hemoglobin Concent 32.4 % Red Cell Distribution Width 14.5 % Platelet Count 161 TH/MM3 Mean Platelet Volume 8.4 FL Neutrophils (%) (Auto) 89.0 % Lymphocytes (%) (Auto) 6.6 % Monocytes (%) (Auto) 4.3 % Eosinophils (%) (Auto) 0.0 % Basophils (%) (Auto) 0.1 % Neutrophils # (Auto) 3.5 TH/MM3 Lymphocytes # (Auto) 0.3 TH/MM3 Monocytes # (Auto) 0.2 TH/MM3 Eosinophils # (Auto) 0.0 TH/MM3 Basophils # (Auto) 0.0 TH/MM3 CBC Comment DIFF FINAL Differential Comment Blood Urea Nitrogen 46 MG/DL Creatinine 1.51 MG/DL Random Glucose 144 MG/DL Calcium Level 8.0 MG/DL Sodium Level 137 MEQ/L Potassium Level 3.9 MEQ/L Chloride Level 98 MEQ/L Carbon Dioxide Level 30.5 MEQ/L Anion Gap 9 MEQ/L Estimat Glomerular Filtration Rate 34 ML/MIN Imaging Last Impressions Chest X-Ray 12/08/16 0000 Signed Impressions: Service Date/Time: Thursday, December 08, 2016 07:50 - CONCLUSION: Unchanged appearance with complete opacification of the left hemithorax, small right effusion, and mild right basilar atelectasis versus infiltrate. Bernabe Marquez Jr., MD CT Angiography 12/01/16 1025 Signed Impressions: Service Date/Time: Thursday, December 01, 2016 11:31 - CONCLUSION: 1. Motion degraded exam. 2. No pulmonary embolus. 3. Consolidation involving the left lower lobe with small left effusion. Low-density material seen involving the airways of the left lower lobe. This could relate to mucous plugging. Bernabe Marquez Jr., MD Objective Remarks GENERAL: Patient is 66 yo lying in bed in mild resp distress SKIN: Warm and dry. HEAD: Normocephalic. EYES: No scleral icterus. No injection or drainage. NECK: Supple, trachea midline. No JVD or lymphadenopathy. CARDIOVASCULAR: Regular rate and rhythm without murmurs, gallops, or rubs. RESPIRATORY: Breath sounds equal bilaterally. Diminished on left. GASTROINTESTINAL: Abdomen soft, non-tender, nondistended. MUSCULOSKELETAL: No cyanosis, or edema. Neuro: Awake and alert. A/P Assessment and Plan 1. Acute hypoxemic respiratory failure. 2. Opacification of left hemithorax 3. Post obstructive pneumonia. 4. Stage IV [id number] lung cancer on chemotherapy and radiation treatment. 5. Elevated troponin possible non-STEMI. 6. Cardiomyopathy with ejection fraction of 30-35%. 7. A history of non-Hodgkin's disease. 8. History of brain metastasis, status post resection and radiation treatment. 9. Renal cell CA status post right nephrectomy. 10. COPD . 11. Hypertension. 12. Hypothyroidism. 13. Hyperlipidemia. Plan Neuro: Monitor neuro status closely and avoid any sedatives. Pulm: Continue with oxygen and maintain sats above 92%. Bronchodilators(DuoNeb, Pulmicort) Mucomyst with nebs. IV steroids Solu -Medrol 60 mg IV q. 8. NIPPV PRN for respiratory distress. Pulm is following- Dr. Jones. CXR today showed no changes ( opacification of left hemithorax) Discussed with Dr. Ruiz and Dr. Jones will proceed with intubation and bronch today Patient states if she end up intubated for bronch and dependent on ventilator for days then would like to be removed for vent and transition to comfort care Addendum 1400: Patient was intubated placed on mechanical ventilation and underwent bronchoscopy. Findings: Primary christopher sharp within normal, minima secretions on right lung suctioned to clear. Left lung- Mass seen likely organized thrombus obstructing orifice of left main stem bronchus. [place] and biopsy forceps used to dislodge/remove mass and after Friable mucosa with erythema noted DECLAN/LLL. Minimal bleeding noted 2nd suction. Mucomyst applied. Patient tolerated procedure well. CXR post bronch showed expansion of left lung. CV: Monitor HR and BP and maintain MAP> 65 mmHg. On Coreg 6.25mg BID, Bumex 1mg daily, Lisinopril 2.5mg daily, ASA 81mg daily Cards is following : Monitor renal function Is and Os and electrolyte replacement as needed. Cr: 1.51 today, UOP: 1750ml in 24 hrs, on Bumex 1mg daily GI: On Protonix 40 mg IV daily. ID: Continue with abx ( Levaquin). Monitor for signs of infections(fever and WBC). sputum culture showed normal respiratory miguel . blood cultures : NGTD strep pneumoniae and Legionella urinary antigen negative on 12/06 Endo: SSI with Accu-Chek q. 4-hour for glycemic control Continue with Synthroid 75 mcg daily. TSH: 0.47 on 12/04. Heme: Monitor CBC. Dr. Ruiz from oncology is following. Further radiation treatment per radiation oncology. GI prophylaxis with a poor Protonix 40 mg daily and DVT prophylaxis with SCDs. not on chemical anticoagulation prophylaxis given her initial presentation with hemoptysis. Level 3 Marilou Clark MD Dec 09, 2016 07:18
[2016-12-09] MEDS: RESP: BUDESONIDE 0.5 MG/2 ML NEB NEB SCH ×2 (07:27→19:36)
[2016-12-09] MEDS: ASPIRIN EC 81 MG TABEC PO SCH (07:55)
[2016-12-09] MEDS: LACTOBACILLUS ACIDOPHILUS TAB PO SCH ×3 (07:55→23:04)
[2016-12-09] MEDS: guaiFENesin E.R. 600 MG TAB PO SCH ×3 (07:55→21:57)
[2016-12-09] MEDS: BUMETANIDE INJ 1 MG/4 ML VIAL IV PUSH SCH (07:55)
[2016-12-09] MEDS: PANTOPRAZOLE SODIUM 40 MG VIAL IV PUSH SCH (07:55)
[2016-12-09] MEDS: CARVEDILOL 6.25 MG TAB PO SCH ×3 (07:55→23:04)
[2016-12-09] MEDS: SODIUM CHLORIDE 0.9% FLUSH 10 ML FLUSH IV FLUSH SCH ×2 (07:56→21:56)
--- NOTE | 2016-12-09 08:20 | RADRPT ---
EXAM DATE/TIME: 12/09/2016 07:45 [facility] COMPARISON: CHEST SINGLE AP, December 08, 2016, 7:50. INDICATIONS : Short of breath MEDICAL HISTORY : Carcinoma, lung. Cardiovascular disease. Hypertension. SURGICAL HISTORY : Hysterectomy. Nephrectomy, left. Splenectomy. ENCOUNTER: Subsequent ACUITY: 1 week PAIN SCORE: 0/10 LOCATION: Bilateral chest FINDINGS: A single portable frontal view of the chest shows no significant change. Volume loss and complete opa cification of the left hemithorax. Small right effusion with right lower lobe consolidation. Heart is normal in size. Mild sclerotic curvature. CONCLUSION: No change. See above. Bernabe Marquez Jr., MD on December 09, 2016 at 8:17 Board Certified Radiologist. This report was verified electronically.
--- NOTE | 2016-12-09 09:16 | PD.ONC.PN ---
Subjective Subjective Remarks Afebrile The pt reports feeling better; however her CXR is unchanged with L sided consolidation. She agrees to bronchoscopy Objective Data Date Time Temp Pulse Resp B/P (MAP) Pulse Ox O2 Delivery O2 Flow Rate FiO2 12/09/16 07:27 98 Simple Mask 8.00 12/09/16 06:00 113 12/09/16 04:00 95 Simple Mask 8.00 12/09/16 04:00 111 12/09/16 04:00 98.2 111 30 128/68 (88) 95 12/09/16 02:00 114 12/09/16 01:15 94 Simple Mask 9.00 12/09/16 00:00 110 12/09/16 00:00 97.8 110 19 121/62 (81) 94 12/09/16 00:00 94 Nasal Cannula 6.00 12/08/16 22:00 85 12/08/16 20:00 96 12/08/16 20:00 92 Nasal Cannula 6.00 12/08/16 20:00 98.7 96 24 131/60 (83) 92 12/08/16 18:00 114 12/08/16 16:00 98.7 109 24 150/80 (103) 93 12/08/16 16:00 109 12/08/16 16:00 94 Nasal Cannula 6.00 12/08/16 14:00 89 12/08/16 12:00 97 12/08/16 12:00 97.8 97 24 137/65 (89) 93 12/08/16 12:00 94 Nasal Cannula 6.00 12/08/16 10:00 96 12/09/16 12/09/16 12/09/16 07:00 15:00 23:00 Intake Total 0 ml Output Total 750 ml Balance -750 ml Result Diagram: 12/09/1642012/09/16 0421 Laboratory Results Laboratory Tests Test 12/09/16 04:21 White Blood Count 3.9 TH/MM3 Red Blood Count 2.99 MIL/MM3 Hemoglobin 9.1 GM/DL Hematocrit 28.0 % Mean Corpuscular Volume 93.8 FL Mean Corpuscular Hemoglobin 30.4 PG Mean Corpuscular Hemoglobin Concent 32.4 % Red Cell Distribution Width 14.5 % Platelet Count 161 TH/MM3 Mean Platelet Volume 8.4 FL Neutrophils (%) (Auto) 89.0 % Lymphocytes (%) (Auto) 6.6 % Monocytes (%) (Auto) 4.3 % Eosinophils (%) (Auto) 0.0 % Basophils (%) (Auto) 0.1 % Neutrophils # (Auto) 3.5 TH/MM3 Lymphocytes # (Auto) 0.3 TH/MM3 Monocytes # (Auto) 0.2 TH/MM3 Eosinophils # (Auto) 0.0 TH/MM3 Basophils # (Auto) 0.0 TH/MM3 CBC Comment DIFF FINAL Differential Comment Blood Urea Nitrogen 46 MG/DL Creatinine 1.51 MG/DL Random Glucose 144 MG/DL Calcium Level 8.0 MG/DL Sodium Level 137 MEQ/L Potassium Level 3.9 MEQ/L Chloride Level 98 MEQ/L Carbon Dioxide Level 30.5 MEQ/L Anion Gap 9 MEQ/L Estimat Glomerular Filtration Rate 34 ML/MIN Imaging Studies Last 24 hours Impressions Chest X-Ray 12/09/16 0000 Signed Impressions: Service Date/Time: Friday, December 09, 2016 07:45 - CONCLUSION: No change. See above. Bernabe Marquez Jr., MD Administered Medications Medications (Trade) Dose Ordered Sig/Sami Route PRN Reason Start Time Stop Time Status Last Admin Dose Admin Levothyroxine Sodium (Synthroid) 75 mcg DAILY@0600 PO 12/02/16 06:00 12/09/16 05:23 Sodium Chloride (NS Flush) 2 ml BID IV FLUSH 12/01/16 21:00 12/09/16 07:56 Acetaminophen (Tylenol) 650 mg Q4H PRN PO TEMP > 100.4 12/01/16 13:45 12/08/16 21:02 Guaifenesin (Mucinex Er) 600 mg BID PO 12/01/16 21:00 12/09/16 07:55 Patient Own Medication PT OWN MED: KEPPRA... DAILY@2100 PO 12/03/16 21:00 12/08/16 21:00 Patient Own Medication PT OWN MED: Osimerti... DAILY@2100 PO 12/03/16 21:00 12/08/16 20:59 Pravastatin Sodium (Pravachol) 20 mg DAILY@2100 PO 12/03/16 21:00 12/08/16 21:01 Aspirin (Ecotrin Ec) 81 mg DAILY PO 12/04/16 09:00 12/09/16 07:55 Diphenhydramine HCl (Benadryl) 25 mg HS PRN PO INSOMNIA 12/04/16 20:00 12/04/16 20:45 Albuterol/ Ipratropium (Duoneb Neb) 1 ampule Q4HR NEB NEB 12/05/16 12:00 12/09/16 07:26 Lactobacillus Acidophilus (Lactinex) 1 tab Q12HR PO 12/05/16 21:00 12/09/16 07:55 Ibuprofen (Motrin) 400 mg Q8H PRN PO PAIN GREATER THAN 5 12/05/16 18:00 12/05/16 18:32 Chlorhexidine Gluconate (Chlorhexidine 2% Cloth) 3 pack DAILY@04 TOPICAL 12/07/16 04:00 12/11/16 04:01 12/08/16 03:29 Methylprednisolone Sodium Succinate (SoluMEDROL INJ) 60 mg Q8HR IV PUSH 12/06/16 14:00 12/09/16 05:23 Budesonide (Pulmicort Respule Neb) 0.5 mg Q12HR NEB NEB 12/06/16 08:15 12/09/16 07:27 Pantoprazole Sodium (Protonix Inj) 40 mg Q24H IV PUSH 12/06/16 09:00 12/09/16 07:55 Acetylcysteine (Mucomyst 10% Neb) 2 ml Q4HR NEB NEB 12/06/16 12:45 12/09/16 07:27 Carvedilol (Coreg) 6.25 mg BID PO 12/06/16 21:00 12/09/16 07:55 Lisinopril (Prinivil) 2.5 mg DAILY@1400 PO 12/06/16 14:00 12/08/16 12:34 Insulin Human Regular (NovoLIN R SUPPLEMENTAL SCALE) 1 Q6HR SQ 12/07/16 12:00 12/09/16 05:22 Levofloxacin/ Dextrose 150 ml @ 100 mls/hr Q48H IV 12/09/16 05:00 12/09/16 05:24 Bumetanide (Bumex Inj) 1 mg DAILY IV PUSH 12/08/16 09:00 12/09/16 07:55 Objective Remarks GENERAL: Chronically ill appearing female sitting up in bed currently getting a breathing treatment SKIN: Warm and dry. HEAD: Normocephalic. EYES: No injection or drainage. NECK: Supple, trachea midline. CARDIOVASCULAR: clinical trial educator shows sinus tach in the 120's RESPIRATORY: Entire left lung diminished. GASTROINTESTINAL: Abdomen soft, non-tender, nondistended. EXTREMITIES: No cyanosis, or edema. MUSCULOSKELETAL: + Muscle wasting NEUROLOGICAL: No obvious focal deficit. Awake, alert, and oriented x3. Assessment/Plan Assessment 1. Discussed with the patient as well as Dr. Clark today; left-sided opacification of the lung remains unchanged. 2. Plan is to do a bronchoscopy likely today or at latest tomorrow. This will probably be done by critical care. 3. The patient reports breathing easier, however she will not get better if the blockage causing the problem is not treated. 4. We have discussed extensively with the patient, and the plan is to allow time for her to be weaned off the ventilator after the bronchoscopy, but if this appears it is not likely to happen we will transition her to comfort care at that time. Plan The exam, history, and the medical decision-making described in the above note were completed with the assistance of the mid-level provider. I reviewed and agree with the findings presented. I attest that I had a [id number] encounter with the patient on the same day, and personally performed and documented my assessment and findings in the medical record. I spoke with Dr. Clark today and will go ahead with bronchoscopy JUSTINE. This note is written in late afternoon and the bronch has been performed and he was able to remove a large thrombus after several hours of work and the lung has reexpanded. Great job done by Dr. Clark and I am grateful. Mily Ulloa Dec 09, 2016 09:15 Jesus Ruiz MD Dec 09, 2016 19:07
--- NOTE | 2016-12-09 10:20 | MB ---
cc: JETHRO COTTER M.D. DATE OF CONSULTATION: 12/09/2016 DATE OF : 1950. HISTORY: This lady had initiate palliative radiation treatment to her lung for a lesion involving her left hilum. Unfortunately, she has decompensated with complete collapse of the left lung. In reviewing with her physicians this morning she is unable to lie flat. She is needing 6 and 8 liters of oxygen to maintain her O2 and they do not feel that she is able to be transferred and treated in our department. There are plans and consideration for her undergo a bronchoscopy in case her situation is complicated by a mucous plugging. If she does end up on a ventilator we should be able to bring her down for daily radiation treatment. At this point, however, we have told radiation treatment until she is more stable. MD AMAN Crowder/juan /7:57 AM /10:11 AM
[2016-12-09] MEDS ORDERED: ETOMIDATE 20 MG/10 ML VIAL ONE (11:20)
[2016-12-09] MEDS ORDERED: PROPOFOL 1000 MG/100 ML INJ 100 ML ONE (11:21)
[2016-12-09] MEDS ORDERED: PROPOFOL 1000 MG/100 ML INJ 100 ML IV PRN (11:46)
[2016-12-09] MEDS: PROPOFOL 1000 MG/100 ML IV PRN ×3 (12:00→21:57)
[2016-12-09] MEDS: LISINOPRIL 5 MG TAB PO SCH (13:41)
--- NOTE | 2016-12-09 14:19 | RADRPT ---
EXAM DATE/TIME: 12/09/2016 13:52 [facility] COMPARISON: CHEST SINGLE AP, December 09, 2016, 7:45. INDICATIONS : Post bronchoscopy. MEDICAL HISTORY : Carcinoma, lung. Cardiovascular disease. Hypertension. SURGICAL HISTORY : Splenectomy. Nephrectomy, left ENCOUNTER: Initial ACUITY: 1 week PAIN SCORE: Non-responsive. LOCATION: Bilateral chest FINDINGS: A single portable frontal view the chest shows interval reexpansion of the left lung with a left lowe r lobe consolidation remaining. An infiltrate is seen involving the right lung base which is more pro nounced. Small effusions are unchanged. Heart is normal in size. An endotracheal tube has been placed with the tip 3 cm proximal to the christopher. No pneumothorax or pneumomediastinum. CONCLUSION: 1. Reexpansion of the left lung. 2. Small bilateral pleural effusions and bibasilar infiltrates. 3. Endotracheal tube. Bernabe Marquez Jr., MD on December 09, 2016 at 14:15 Board Certified Radiologist. This report was verified electronically.
[2016-12-09] MEDS ORDERED: ETOMIDATE 20 MG/10 ML VIAL IV PUSH ONE (14:45)
[2016-12-09 18:10] LABS: BLOOD GAS CARBOXYHEMOGLOBIN 1.4 % (0-4); BLOOD GAS HCO3 30 mmol/L (22-26); BLOOD GAS METHEMOGLOBIN 1.2 % (0-2); BLOOD GAS O2 HGB SATURATION 86 % (90-100); BLOOD GAS OXYGEN CONTENT 11.6 Vol % (12.0-20.0); BLOOD GAS PCO2 42 mmHg (38-42); BLOOD GAS PO2 57 mmHg (61-120); BLOOD GAS TOTAL HGB 9.5 G/DL (12.0-16.0); TEMP CORR TO 98.6
[2016-12-09 18:11] LABS: CRITICAL VALUE YES; DRAW SITE RT RADIAL; FIO2 40 %; NUMBER OF ARTERIAL PUNCTURES 1; OXYGEN DEVICE VENTILATOR; STAT NO; ULNAR PULSE PRESENT; VENT SETTINGS AC/14/450/PEEP5
[2016-12-09] MEDS ORDERED: fentaNYL DRIP 250 ML IV PRN (19:26)
--- NOTE | 2016-12-09 19:44 | HHI.PR ---
Subjective Remarks 66 YOWF with Ca lung, Renal cell ca, Hodgekin Lymphoma No fever No CP Developed atelatesis left lung No hemoptysis Had Bronch with removal of thick clots Has reexpansion of left lung On Vent, Fi02 50% Objective Vital Signs Vital Signs Date Time Temp Pulse Resp B/P (MAP) Pulse Ox O2 Delivery O2 Flow Rate FiO2 12/09/16 18:00 81 12/09/16 16:00 40 12/09/16 16:00 78 12/09/16 16:00 97.6 78 14 115/57 (76) 95 12/09/16 16:00 96 Mechanical Ventilator 50 12/09/16 15:32 96 40 12/09/16 14:00 79 12/09/16 13:40 95 100 12/09/16 12:00 136 12/09/16 12:00 96 Mechanical Ventilator 50 12/09/16 12:00 40 12/09/16 12:00 97.6 136 25 144/75 (98) 97 12/09/16 11:45 95 100 12/09/16 10:00 128 12/09/16 08:00 97.8 125 24 137/77 (97) 94 12/09/16 08:00 125 12/09/16 08:00 94 Nasal Cannula 7.00 12/09/16 07:27 98 Simple Mask 8.00 12/09/16 06:00 113 12/09/16 04:00 95 Simple Mask 8.00 12/09/16 04:00 111 12/09/16 04:00 98.2 111 30 128/68 (88) 95 12/09/16 02:00 114 12/09/16 01:15 94 Simple Mask 9.00 12/09/16 00:00 110 12/09/16 00:00 97.8 110 19 121/62 (81) 94 12/09/16 00:00 94 Nasal Cannula 6.00 12/08/16 22:00 85 12/08/16 20:00 96 12/08/16 20:00 92 Nasal Cannula 6.00 12/08/16 20:00 98.7 96 24 131/60 (83) 92 I/O 12/08/16 12/08/16 12/08/16 12/09/16 12/09/16 12/09/16 07:00 15:00 23:00 07:00 15:00 23:00 Intake Total 50 ml 50 ml 720 ml 0 ml 150 ml 100 ml Output Total 1000 ml 1000 ml 750 ml 1400 ml Balance -950 ml 50 ml -280 ml -750 ml 150 ml -1300 ml Intake Oral 720 ml 0 ml 0 ml IV Total 50 ml 0 ml 150 ml 100 ml Albumin 50 ml Output Urine Total 1000 ml 1000 ml 750 ml 1400 ml # Bowel Movements 1 0 0 Result Diagram: 12/09/1642012/09/16420 Objective Remarks GENERAL: MBMN WF,On Vent SKIN: Warm and dry. HEAD: Normocephalic. EYES: No scleral icterus. No injection or drainage. NECK: Supple, trachea midline. No JVD or lymphadenopathy. CARDIOVASCULAR: Regular rate and rhythm without murmurs, gallops, or rubs. RESPIRATORY: Breath sounds equal bilaterally. No accessory muscle use. GASTROINTESTINAL: Abdomen soft, non-tender, nondistended. MUSCULOSKELETAL: No cyanosis, or edema. BACK: Nontender without obvious deformity. No CVA tenderness. A/P Assessment and Plan Hemoptysis VDRF Ca lung on chemo Left basal infilt vs mass COPD H/O renal cell ca H/O Hodgekin disease Atelactesis left lung, s/p Bronch with re expansion of lung PLAN: Vent support Aerosol nebs Cont Abx Mucomyst nebs Will wean vent in AM DW . Hilton Jones MD Dec 09, 2016 19:44
[2016-12-09] MEDS: CHLORHEXIDINE 0.12% (ORAL KIT) 15 ML CUP MT SCH (20:00)
[2016-12-09] MEDS: OSIMERTINIB MESYLATE 80 MG PO SCH ×2 (21:56→23:04)
[2016-12-09] MEDS: KEPPRA 500 MG PO SCH ×2 (21:56→23:04)
[2016-12-09] MEDS: PRAVASTATIN SOD 20 MG TAB PO SCH ×2 (21:57→23:04)
[2016-12-10] VITALS (33 sets, daily range): BP systolic 94–133; BP diastolic 53–62; PULSE 63–130; RESP 14–39; TEMP 97.1–98.1; O2SAT 94–98
[2016-12-10] MEDS: RESP: ACETYLCYSTEINE 10% 30 ML NEB NEB SCH ×6 (03:44→23:33)
[2016-12-10] MEDS: RESP: ALBUTEROL 2.5 MG/IPRATROPIUM 0.5 MG NEB (SCH) NEB ×6 (03:44→23:33)
[2016-12-10] MEDS: CHLORHEXIDINE GLUCONATE 2 % 1 PACK (2 CLOTHS)(taper/protocol) TOPICAL SCH (04:51)
[2016-12-10] MEDS: methylPREDNISolone SOD SUCC 40 MG/1 ML VIAL IV PUSH SCH ×3 (04:52→20:42)
[2016-12-10] MEDS: LEVOTHYROXINE SODIUM 75 MCG TAB PO SCH (04:52)
[2016-12-10] MEDS: INSULIN NovoLIN REGULAR SUPPLEMENTAL SCALE SQ SCH ×4 (04:52→18:00)
--- NOTE | 2016-12-10 05:10 | HHI.CCPN ---
Subjective Remarks/Hospital Course Patient is a 66-year-old female with past medical history of metastatic non- small-cell lung cancer. Who was started on chemotherapy five weeks ago and currently is receiving radiation treatment, hypothyroidism, non-Hodgkin's lymphoma, renal cell CA status post nephrectomy, hypertension and hypothyroidism. She was admitted to [facility] on December 01 under hospitalist service for a hemoptysis and elevated troponins. She had a CT angiogram of the chest on December 01 which showed no evidence of pulmonary embolism, however, it showed consolidation involving the left lower lobe with small left effusion and possible mucous plugging involving the airways of the left lower lobe. She was started on broad-spectrum antibiotics for likely post obstructive pneumonia. She is also on radiation treatment on December 04 and underwent another radiation session yesterday. An Echocardiogram on December 04 showed reduced left ventricular function with ejection fraction of 30-35%. Moderate to severe tricuspid regurgitation and moderate pulmonary hypertension with estimated PA pressure 48 mmHg. She is being followed by pulmonary oncology and cardiology service. This morning the patient was found in respiratory distress tachycardiac requiring increased supplemental oxygen to maintain her O2 saturation. The chest x-ray this morning showed complete opacification of the left hemithorax. She was given Solu-Medrol 125 mg IV push. ABG was performed on 5 liters oxygen which showed a pH of 7.36, CO2 31, pAO2 63, bicarb 17, saturation 89%. Patient was transferred to [facility] [place] for close observation and critical care medicine was consulted for critical care management. Per records , the patient is no code, do not resuscitate and I verified the code status with her. She does not want any mechanical ventilation or cardiac resuscitation in the event of cardiopulmonary arrest. The patient is currently on non-rebreather mask with O2 saturation of 93-96%. A she denies any nausea, vomiting and abdominal pain in addition she denies any cough or constitutional symptoms. 12/07 Patient is off BIPAP feeling better on 6L simple mask with good sats. Afebrile. 12/08 No events overnight. On 10L simple mask with good sats. Afebrile. 12/09 No events overnight. On 8L simple mask Afebrile. 12/10: large mucous plug removed and lung re-expanded yesterday. remains intubated. Objective Vital Signs Date Time Temp Pulse Resp B/P (MAP) Pulse Ox O2 Delivery O2 Flow Rate FiO2 12/10/16 04:02 96 45 12/10/16 02:00 63 12/10/16 00:00 Mechanical Ventilator 12/10/16 00:00 98.1 14 94/53 (67) 12/09/16 08:00 7.00 Result Diagram: 12/09/16 0421 12/09/16 0421 Other Results Laboratory Tests Test 12/09/16 17:54 Blood Gas Puncture Site RT RADIAL Blood Gas Patient Temperature 98.6 Blood Gas HCO3 30 mmol/L (22-26) Blood Gas Base Excess 6.0 mmol/L (-2-2) Blood Gas Oxygen Saturation 86 % (90-100) Arterial Blood pH 7.46 (7.380-7.420) Arterial Blood Partial Pressure CO2 42 mmHg (38-42) Arterial Blood Partial Pressure O2 57 mmHg (61-120) Arterial Blood Oxygen Content 11.6 Vol % (12.0-20.0) Arterial Blood Carboxyhemoglobin 1.4 % (0-4) Arterial Blood Methemoglobin 1.2 % (0-2) Blood Gas Hemoglobin 9.5 G/DL (12.0-16.0) Oxygen Delivery Device VENTILATOR Blood Gas Ventilator Setting AC/14/450/PEEP5 Blood Gas Inspired Oxygen 40 % Imaging Last Impressions Chest X-Ray 12/08/16 0000 Signed Impressions: Service Date/Time: Thursday, December 08, 2016 07:50 - CONCLUSION: Unchanged appearance with complete opacification of the left hemithorax, small right effusion, and mild right basilar atelectasis versus infiltrate. Bernabe Marquez Jr., MD CT Angiography 12/01/16 1025 Signed Impressions: Service Date/Time: Thursday, December 01, 2016 11:31 - CONCLUSION: 1. Motion degraded exam. 2. No pulmonary embolus. 3. Consolidation involving the left lower lobe with small left effusion. Low-density material seen involving the airways of the left lower lobe. This could relate to mucous plugging. Bernabe Marquez Jr., MD Objective Remarks GENERAL: Patient is 66 yo lying in bed intubated, sedated. SKIN: Warm and dry. HEAD: Normocephalic. EYES: No scleral icterus. No injection or drainage. NECK: Supple, trachea midline. No JVD CARDIOVASCULAR: Regular rate and rhythm. sinus by tele. RESPIRATORY: Breath sounds equal bilaterally. GASTROINTESTINAL: Abdomen soft, non-tender, nondistended. MUSCULOSKELETAL: No cyanosis, or edema. Neuro: intubated and sedated. RASS -2. A/P Assessment and Plan Assessment: 66yF with non-small cell lung cancer and acute hypoxic respiratory failure secondary to mucous plugging and resorptive atelectasis. Some improvements, although now intubated. will attempt to wean to extubate today. 1. Acute hypoxemic respiratory failure. 2. Opacification of left hemithorax 3. Post obstructive pneumonia. 4. Stage IV [id number] lung cancer on chemotherapy and radiation treatment. 5. Elevated troponin possible non-STEMI. 6. Cardiomyopathy with ejection fraction of 30-35%. 7. A history of non-Hodgkin's disease. 8. History of brain metastasis, status post resection and radiation treatment. 9. Renal cell CA status post right nephrectomy. 10. COPD . 11. Hypertension. 12. Hypothyroidism. 13. Hyperlipidemia. Plan Neuro: Monitor neuro status closely. wean sedation, daily sedation vacation. Pulm: wean to extubate if possible today wean fio2 for spo2 > 90% nebs IV steroids 60 iv q8h Aneja - pulm following cxr today s/p bronch 12/09 with large left mucous plug Patient states if she end up intubated for bronch and dependent on ventilator for days then would like to be removed for vent and transition to comfort care CV: Monitor HR and BP and maintain MAP> 65 mmHg. On Coreg 6.25mg BID, Bumex 1mg daily, Lisinopril 2.5mg daily, ASA 81mg daily Cards is following : Monitor renal function Is and Os and electrolyte replacement as needed. GI: On Protonix 40 mg IV daily. ID: Continue with abx ( Levaquin). Monitor for signs of infections(fever and WBC). sputum culture showed normal respiratory miguel . blood cultures : NGTD strep pneumoniae and Legionella urinary antigen negative on 12/06 Endo: SSI with Accu-Chek q. 4-hour for glycemic control Continue with Synthroid 75 mcg daily. TSH: 0.47 on 12/04. Heme: Monitor CBC. Dr. Ruiz from oncology is following. Further radiation treatment per radiation oncology. GI prophylaxis with a poor Protonix 40 mg daily and DVT prophylaxis with SCDs. not on chemical anticoagulation prophylaxis given her initial presentation with hemoptysis. Jai Storm MD Dec 10, 2016 05:10
--- NOTE | 2016-12-10 06:24 | RADRPT ---
EXAM DATE/TIME: 12/10/2016 05:46 [place] COMPARISON: CHEST SINGLE AP, December 09, 2016, 7:45. CHEST SINGLE AP, December 09, 2016, 13:52. INDICATIONS : Short of breath. MEDICAL HISTORY : Carcinoma, lung. Cardiovascular disease. Hypertension. SURGICAL HISTORY : Splenectomy. Nephrectomy, left ENCOUNTER: Subsequent ACUITY: 2 weeks PAIN SCORE: 0/10 LOCATION: Bilateral chest FINDINGS: Portable AP view the chest demonstrates a normal-sized cardiac silhouette. ETT and nasogastric tube a re present. There is stable left basilar opacity obscuring the left hemidiaphragm and small right bas ilar pleural-parenchymal opacity. No pneumothorax is visualized. CONCLUSION: Stable bibasilar opacity likely representing pleural effusions with associated volume loss and/or air space consolidation. Rodolfo Colldao MD on December 10, 2016 at 6:22 Board Certified Radiologist. This report was verified electronically.
[2016-12-10] MEDS: RESP: BUDESONIDE 0.5 MG/2 ML NEB NEB SCH ×2 (07:25→19:24)
[2016-12-10 07:30] LABS: BASOPHIL % 0.2 % (0.0-2.0); HEMATOCRIT 28.7 % (35.0-46.0); HEMO FLAGS DIFF FINAL; LYMPH % 6.7 % (9.0-44.0); LYMPHOCYTE # 0.3 TH/MM3 (1.0-4.8); MEAN CELL VOLUME 93.1 FL (80.0-100.0); MEAN CORPUSCULAR HEMOGLOBIN 30.9 PG (27.0-34.0); MEAN CORPUSCULAR HGB CONC 33.2 % (32.0-36.0); MONO % 6.3 % (0.0-8.0); NEUT % 86.8 % (16.0-70.0); PLATELET COUNT 158 TH/MM3 (150-450); RED BLOOD COUNT 3.08 MIL/MM3 (4.00-5.30); RED CELL DISTRIBUTION WIDTH 14.6 % (11.6-17.2); WHITE BLOOD COUNT 4.7 TH/MM3 (4.0-11.0)
[2016-12-10 07:49] LABS: BICARBONATE 30.6 MEQ/L (21.0-32.0); POTASSIUM 3.1 MEQ/L (3.5-5.1)
[2016-12-10] MEDS: CHLORHEXIDINE 0.12% (ORAL KIT) 15 ML CUP MT SCH ×2 (08:00→20:00)
[2016-12-10] MEDS: CARVEDILOL 6.25 MG TAB PO SCH ×2 (08:49→20:39)
[2016-12-10] MEDS: guaiFENesin E.R. 600 MG TAB PO SCH ×2 (08:49→20:40)
[2016-12-10] MEDS: ASPIRIN EC 81 MG TABEC PO SCH (08:49)
[2016-12-10] MEDS: PANTOPRAZOLE SODIUM 40 MG VIAL IV PUSH SCH (08:50)
[2016-12-10] MEDS: SODIUM CHLORIDE 0.9% FLUSH 10 ML FLUSH IV FLUSH SCH ×2 (08:50→20:35)
[2016-12-10] MEDS: LACTOBACILLUS ACIDOPHILUS TAB PO SCH ×2 (08:50→20:40)
[2016-12-10] MEDS: BUMETANIDE INJ 1 MG/4 ML VIAL IV PUSH SCH (08:50)
[2016-12-10] MEDS: PROPOFOL 1000 MG/100 ML IV PRN (08:51)
[2016-12-10] MEDS ORDERED: POTASSIUM CHLORIDE 20 MEQ CONTROLLED RELEASE TAB PO ONE (10:00)
--- NOTE | 2016-12-10 10:13 | PD.ONC.PN ---
Subjective Subjective Remarks CXR shows a vast difference after bronch yesterday Per RN they are weaning her off sedation in an attempt to wean off the vent Objective Data Date Time Temp Pulse Resp B/P (MAP) Pulse Ox O2 Delivery O2 Flow Rate FiO2 12/10/16 09:11 BiPAP/CPAP 45 12/10/16 09:11 98 45 12/10/16 07:30 96 45 12/10/16 06:00 66 12/10/16 04:02 96 45 12/10/16 04:00 65 12/10/16 04:00 95 Mechanical Ventilator 45 12/10/16 04:00 45 12/10/16 04:00 97.1 65 14 119/56 (77) 96 12/10/16 02:00 63 12/10/16 01:02 96 45 12/10/16 00:00 68 12/10/16 00:00 94 Mechanical Ventilator 45 12/10/16 00:00 45 12/10/16 00:00 98.1 68 14 94/53 (67) 94 12/09/16 22:03 96 45 12/09/16 22:00 77 12/09/16 20:00 45 12/09/16 20:00 96 Mechanical Ventilator 45 12/09/16 20:00 74 12/09/16 20:00 96.9 74 14 124/55 (78) 96 12/09/16 19:36 98 45 12/09/16 18:00 81 12/09/16 16:00 40 12/09/16 16:00 78 12/09/16 16:00 97.6 78 14 115/57 (76) 95 12/09/16 16:00 96 Mechanical Ventilator 50 12/09/16 15:32 96 40 12/09/16 14:00 79 12/09/16 13:40 95 100 12/09/16 12:00 136 12/09/16 12:00 96 Mechanical Ventilator 50 12/09/16 12:00 40 12/09/16 12:00 97.6 136 25 144/75 (98) 97 12/09/16 11:45 95 100 12/09/16 10:00 128 12/10/16 12/10/16 12/10/16 07:00 15:00 23:00 Intake Total 193 ml 100 ml Output Total 625 ml Balance -432 ml 100 ml Result Diagram: 12/10/16 0542 12/10/16 0542 Laboratory Results Laboratory Tests Test 12/09/16 17:54 12/10/16 05:42 Blood Gas Puncture Site RT RADIAL Blood Gas Patient Temperature 98.6 Blood Gas HCO3 30 mmol/L Blood Gas Base Excess 6.0 mmol/L Blood Gas Oxygen Saturation 86 % Arterial Blood pH 7.46 Arterial Blood Partial Pressure CO2 42 mmHg Arterial Blood Partial Pressure O2 57 mmHg Arterial Blood Oxygen Content 11.6 Vol % Arterial Blood Carboxyhemoglobin 1.4 % Arterial Blood Methemoglobin 1.2 % Blood Gas Hemoglobin 9.5 G/DL Oxygen Delivery Device VENTILATOR Blood Gas Ventilator Setting AC/14/450/PEEP5 Blood Gas Inspired Oxygen 40 % White Blood Count 4.7 TH/MM3 Red Blood Count 3.08 MIL/MM3 Hemoglobin 9.5 GM/DL Hematocrit 28.7 % Mean Corpuscular Volume 93.1 FL Mean Corpuscular Hemoglobin 30.9 PG Mean Corpuscular Hemoglobin Concent 33.2 % Red Cell Distribution Width 14.6 % Platelet Count 158 TH/MM3 Mean Platelet Volume 9.2 FL Neutrophils (%) (Auto) 86.8 % Lymphocytes (%) (Auto) 6.7 % Monocytes (%) (Auto) 6.3 % Eosinophils (%) (Auto) 0.0 % Basophils (%) (Auto) 0.2 % Neutrophils # (Auto) 4.0 TH/MM3 Lymphocytes # (Auto) 0.3 TH/MM3 Monocytes # (Auto) 0.3 TH/MM3 Eosinophils # (Auto) 0.0 TH/MM3 Basophils # (Auto) 0.0 TH/MM3 CBC Comment DIFF FINAL Differential Comment Blood Urea Nitrogen 50 MG/DL Creatinine 1.52 MG/DL Random Glucose 130 MG/DL Calcium Level 8.0 MG/DL Sodium Level 138 MEQ/L Potassium Level 3.1 MEQ/L Chloride Level 98 MEQ/L Carbon Dioxide Level 30.6 MEQ/L Anion Gap 9 MEQ/L Estimat Glomerular Filtration Rate 34 ML/MIN Imaging Studies Last 24 hours Impressions Chest X-Ray 12/10/16 0000 Signed Impressions: Service Date/Time: Saturday, December 10, 2016 05:46 - CONCLUSION: Stable bibasilar opacity likely representing pleural effusions with associated volume loss and/or airspace consolidation. Rodolfo Collado MD Administered Medications Medications (Trade) Dose Ordered Sig/Sami Route PRN Reason Start Time Stop Time Status Last Admin Dose Admin Levothyroxine Sodium (Synthroid) 75 mcg DAILY@0600 PO 12/02/16 06:00 12/10/16 04:52 Sodium Chloride (NS Flush) 2 ml BID IV FLUSH 12/01/16 21:00 12/10/16 08:50 Acetaminophen (Tylenol) 650 mg Q4H PRN PO TEMP > 100.4 12/01/16 13:45 12/08/16 21:02 Guaifenesin (Mucinex Er) 600 mg BID PO 12/01/16 21:00 12/10/16 08:49 Patient Own Medication PT OWN MED: KEPPRA... DAILY@2100 PO 12/03/16 21:00 12/09/16 23:04 Patient Own Medication PT OWN MED: Osimerti... DAILY@2100 PO 12/03/16 21:00 12/09/16 23:04 Pravastatin Sodium (Pravachol) 20 mg DAILY@2100 PO 12/03/16 21:00 12/09/16 23:04 Aspirin (Ecotrin Ec) 81 mg DAILY PO 12/04/16 09:00 12/10/16 08:49 Diphenhydramine HCl (Benadryl) 25 mg HS PRN PO INSOMNIA 12/04/16 20:00 12/04/16 20:45 Lactobacillus Acidophilus (Lactinex) 1 tab Q12HR PO 12/05/16 21:00 12/10/16 08:50 Ibuprofen (Motrin) 400 mg Q8H PRN PO PAIN GREATER THAN 5 12/05/16 18:00 12/05/16 18:32 Chlorhexidine Gluconate (Chlorhexidine 2% Cloth) 3 pack DAILY@04 TOPICAL 12/07/16 04:00 12/11/16 04:01 12/10/16 04:51 Methylprednisolone Sodium Succinate (SoluMEDROL INJ) 60 mg Q8HR IV PUSH 12/06/16 14:00 12/10/16 04:52 Budesonide (Pulmicort Respule Neb) 0.5 mg Q12HR NEB NEB 12/06/16 08:15 12/10/16 07:25 Pantoprazole Sodium (Protonix Inj) 40 mg Q24H IV PUSH 12/06/16 09:00 12/10/16 08:50 Carvedilol (Coreg) 6.25 mg BID PO 12/06/16 21:00 12/10/16 08:49 Lisinopril (Prinivil) 2.5 mg DAILY@1400 PO 12/06/16 14:00 12/08/16 12:34 Insulin Human Regular (NovoLIN R SUPPLEMENTAL SCALE) 1 Q6HR SQ 12/07/16 12:00 12/10/16 00:00 Levofloxacin/ Dextrose 150 ml @ 100 mls/hr Q48H IV 12/09/16 05:00 12/09/16 05:24 Bumetanide (Bumex Inj) 1 mg DAILY IV PUSH 12/08/16 09:00 12/10/16 08:50 Chlorhexidine Gluconate (Peridex 0.12% Liq) 15 ml BID@08,20 MT 12/09/16 20:00 12/10/16 08:00 Albuterol/ Ipratropium (Duoneb Neb) 1 ampule Q4HR NEB NEB 12/09/16 16:00 12/10/16 07:27 Acetylcysteine (Mucomyst 10% Neb) 2 ml Q4HR NEB NEB 12/09/16 16:00 12/10/16 07:28 Propofol 100 ml @ 1.83 mls/hr TITRATE PRN IV SEDATION 12/09/16 15:00 12/10/16 08:51 Fentanyl Citrate 250 ml @ 5 mls/hr Q24H PRN IV SEDATION 12/09/16 19:26 12/09/16 21:58 Objective Remarks GENERAL: Older female resting in bed sedated and mechanically ventilated SKIN: Warm and dry. HEAD: Normocephalic. EYES: No injection or drainage. NECK: Supple, trachea midline. CARDIOVASCULAR: Regular rate and rhythm without murmurs. RESPIRATORY: Left side on mildly diminished. Mechanically ventilated GASTROINTESTINAL: Abdomen soft, non-tender, nondistended. EXTREMITIES: No cyanosis, or edema. NEUROLOGICAL: Sedated however nodding appropriately yes and no to questions Assessment/Plan Assessment 1. The patient had bronchoscopy yesterday by Dr. Clark. He was able to open up her left lung and her chest x-ray today shows a drastic change. She will likely be able to make a full recovery and resume XRT to the tumor later this week. 2. She is fully expected to be able to come off the ventilator today and is likely to continue to improve. 3. We will hold anticoagulation, as there was a blood clot that was removed from the lung causing the blockage. 4. We discussed this with the patient and she seems to understand she was nodding yes and no appropriately. We are thrilled with the difference after the bronchoscopy. Attending Statement The exam, history, and the medical decision-making described in the above note were completed with the assistance of the mid-level provider. I reviewed and agree with the findings presented. I attest that I had a [id number] encounter with the patient on the same day, and personally performed and documented my assessment and findings in the medical record. doing well post bronch and once extubated and up and taking orally will resume tagrisso and complete radiation to mass in right lung base. It will be interesting to do CT of thorax without contrast in several days to see what the mass looks like at lung base. I am thrilled with result of bronch and feel she may have a second chance. Mily Ulloa Dec 10, 2016 10:13 Jesus Ruiz MD Dec 10, 2016 18:21
[2016-12-10] MEDS ORDERED: POTASSIUM CHLORIDE 20 MEQ PWD PACKET NG ONE (10:15)
[2016-12-10] MEDS: LISINOPRIL 5 MG TAB PO SCH (14:00)
--- NOTE | 2016-12-10 19:10 | HHI.PR ---
Subjective Remarks 66 YOWF with Ca lung, Renal cell ca, Hodgekin Lymphoma No fever No CP Developed atelatesis left lung No hemoptysis Had Bronch with removal of thick clots Has reexpansion of left lung Extubated, weaned to 2LNC Objective Vital Signs Vital Signs Date Time Temp Pulse Resp B/P (MAP) Pulse Ox O2 Delivery O2 Flow Rate FiO2 12/10/16 16:00 98.0 77 35 125/59 (81) 97 12/10/16 16:00 77 12/10/16 16:00 94 Nasal Cannula 2.00 12/10/16 15:33 96 Nasal Cannula 4.00 12/10/16 15:00 82 12/10/16 14:00 84 12/10/16 13:00 80 12/10/16 12:32 95 Nasal Cannula 4.00 12/10/16 12:00 77 12/10/16 12:00 98.1 77 19 133/59 (83) 96 12/10/16 12:00 96 Nasal Cannula 4.00 12/10/16 11:44 96 Nasal Cannula 4 12/10/16 11:44 96 Nasal Cannula 4.00 12/10/16 11:00 67 12/10/16 10:45 35 12/10/16 10:00 66 12/10/16 09:11 BiPAP/CPAP 45 12/10/16 09:11 98 45 12/10/16 09:10 40 12/10/16 09:00 67 12/10/16 08:00 63 12/10/16 08:00 45 12/10/16 08:00 99 Mechanical Ventilator 40 12/10/16 08:00 98.1 63 14 124/59 (80) 97 12/10/16 07:30 96 45 12/10/16 07:00 65 12/10/16 06:00 66 12/10/16 04:02 96 45 12/10/16 04:00 65 12/10/16 04:00 95 Mechanical Ventilator 45 12/10/16 04:00 45 12/10/16 04:00 97.1 65 14 119/56 (77) 96 12/10/16 02:00 63 12/10/16 01:02 96 45 12/10/16 00:00 68 12/10/16 00:00 94 Mechanical Ventilator 45 12/10/16 00:00 45 12/10/16 00:00 98.1 68 14 94/53 (67) 94 12/09/16 22:03 96 45 12/09/16 22:00 77 12/09/16 20:00 45 12/09/16 20:00 96 Mechanical Ventilator 45 12/09/16 20:00 74 12/09/16 20:00 96.9 74 14 124/55 (78) 96 12/09/16 19:36 98 45 I/O 12/09/16 12/09/16 12/09/16 12/10/16 12/10/16 12/10/16 06:59 14:59 22:59 06:59 14:59 22:59 Intake Total 0 ml 150 ml 100 ml 193 ml 165 ml Output Total 750 ml 1400 ml 625 ml Balance -750 ml 150 ml -1300 ml -432 ml 165 ml Intake Oral 0 ml 0 ml 0 ml IV Total 0 ml 150 ml 100 ml 193 ml 165 ml Output Urine Total 750 ml 1400 ml 625 ml # Bowel Movements 0 0 0 Result Diagram: 12/10/1642 12/10/16541 Objective Remarks GENERAL: MBMN WF,NAD SKIN: Warm and dry. HEAD: Normocephalic. EYES: No scleral icterus. No injection or drainage. NECK: Supple, trachea midline. No JVD or lymphadenopathy. CARDIOVASCULAR: Regular rate and rhythm without murmurs, gallops, or rubs. RESPIRATORY: Breath sounds equal bilaterally. No accessory muscle use. GASTROINTESTINAL: Abdomen soft, non-tender, nondistended. MUSCULOSKELETAL: No cyanosis, or edema. BACK: Nontender without obvious deformity. No CVA tenderness. A/P Assessment and Plan Hemoptysis VDRF Ca lung on chemo Left basal infilt vs mass COPD H/O renal cell ca H/O Hodgekin disease Atelactesis left lung, s/p Bronch with re expansion of lung PLAN: Aerosol nebs Cont Abx Mucomyst nebs Supplement 02 Stable to tr to oncology floor. Hilton Jones MD Dec 10, 2016 19:10
[2016-12-10] MEDS: KEPPRA 500 MG PO SCH (20:37)
[2016-12-10] MEDS: OSIMERTINIB MESYLATE 80 MG PO SCH (20:39)
[2016-12-10] MEDS: PRAVASTATIN SOD 20 MG TAB PO SCH (20:41)
[2016-12-11] VITALS (17 sets, daily range): BP systolic 113–138; BP diastolic 58–74; PULSE 72–95; RESP 13–28; TEMP 96.4–98.4; O2SAT 91–98
[2016-12-11] MEDS: INSULIN NovoLIN REGULAR SUPPLEMENTAL SCALE SQ SCH ×4 (02:32→17:06)
[2016-12-11] MEDS: RESP: ACETYLCYSTEINE 10% 30 ML NEB NEB SCH ×6 (03:03→23:26)
[2016-12-11] MEDS: RESP: ALBUTEROL 2.5 MG/IPRATROPIUM 0.5 MG NEB (SCH) NEB ×6 (03:03→23:26)
[2016-12-11] MEDS: CHLORHEXIDINE GLUCONATE 2 % 1 PACK (2 CLOTHS)(taper/protocol) TOPICAL SCH (04:00)
[2016-12-11 05:14] LABS: MEAN CELL VOLUME 93.7 FL (80.0-100.0); MEAN CORPUSCULAR HEMOGLOBIN 30.8 PG (27.0-34.0); MEAN CORPUSCULAR HGB CONC 32.8 % (32.0-36.0); PLATELET COUNT 153 TH/MM3 (150-450); RED CELL DISTRIBUTION WIDTH 14.6 % (11.6-17.2); REVIEW FLAG FINAL; WHITE BLOOD COUNT 3.7 TH/MM3 (4.0-11.0)
[2016-12-11 05:45] LABS: BICARBONATE 31.4 MEQ/L (21.0-32.0); POTASSIUM 3.6 MEQ/L (3.5-5.1)
[2016-12-11] MEDS: LEVOFLOXACIN 750 MG PREMIX INJ 150 ML IV SCH (06:20)
[2016-12-11] MEDS: LEVOTHYROXINE SODIUM 75 MCG TAB PO SCH (06:21)
[2016-12-11] MEDS: methylPREDNISolone SOD SUCC 40 MG/1 ML VIAL IV PUSH SCH ×2 (06:21→13:53)
[2016-12-11] MEDS: RESP: BUDESONIDE 0.5 MG/2 ML NEB NEB SCH ×2 (06:40→19:45)
[2016-12-11] MEDS ORDERED: POTASSIUM CHLORIDE 25 MEQ EFFERVESCENT TAB PO ONE (07:00)
--- NOTE | 2016-12-11 07:10 | HHI.CCPN ---
Subjective Remarks/Hospital Course Patient is a 66-year-old female with past medical history of metastatic non- small-cell lung cancer. Who was started on chemotherapy five weeks ago and currently is receiving radiation treatment, hypothyroidism, non-Hodgkin's lymphoma, renal cell CA status post nephrectomy, hypertension and hypothyroidism. She was admitted to [facility] on December 01 under hospitalist service for a hemoptysis and elevated troponins. She had a CT angiogram of the chest on December 01 which showed no evidence of pulmonary embolism, however, it showed consolidation involving the left lower lobe with small left effusion and possible mucous plugging involving the airways of the left lower lobe. She was started on broad-spectrum antibiotics for likely post obstructive pneumonia. She is also on radiation treatment on December 04 and underwent another radiation session yesterday. An Echocardiogram on December 04 showed reduced left ventricular function with ejection fraction of 30-35%. Moderate to severe tricuspid regurgitation and moderate pulmonary hypertension with estimated PA pressure 48 mmHg. She is being followed by pulmonary oncology and cardiology service. This morning the patient was found in respiratory distress tachycardiac requiring increased supplemental oxygen to maintain her O2 saturation. The chest x-ray this morning showed complete opacification of the left hemithorax. She was given Solu-Medrol 125 mg IV push. ABG was performed on 5 liters oxygen which showed a pH of 7.36, CO2 31, pAO2 63, bicarb 17, saturation 89%. Patient was transferred to [facility] [place] for close observation and critical care medicine was consulted for critical care management. Per records , the patient is no code, do not resuscitate and I verified the code status with her. She does not want any mechanical ventilation or cardiac resuscitation in the event of cardiopulmonary arrest. The patient is currently on non-rebreather mask with O2 saturation of 93-96%. A she denies any nausea, vomiting and abdominal pain in addition she denies any cough or constitutional symptoms. 12/07 Patient is off BIPAP feeling better on 6L simple mask with good sats. Afebrile. 12/08 No events overnight. On 10L simple mask with good sats. Afebrile. 12/09 No events overnight. On 8L simple mask Afebrile. 12/10: large mucous plug removed and lung re-expanded yesterday. remains intubated. 12/11: extubated yesterday. on 3L NC. doing well. no complaints. ROS negative. Objective Vital Signs Date Time Temp Pulse Resp B/P (MAP) Pulse Ox O2 Delivery O2 Flow Rate FiO2 12/11/16 06:44 98 Nasal Cannula 4.00 12/11/16 06:00 76 12/11/16 05:00 18 123/58 (79) 12/11/16 04:00 98.3 12/10/16 10:45 35 Intake and Output 12/11/16 12/11/16 12/12/16 08:00 16:00 00:00 Intake Total 480 ml Output Total 350 ml Balance 130 ml Result Diagram: 12/11/16 0416 12/11/16 0416 Imaging Last Impressions Chest X-Ray 12/08/16 0000 Signed Impressions: Service Date/Time: Thursday, December 08, 2016 07:50 - CONCLUSION: Unchanged appearance with complete opacification of the left hemithorax, small right effusion, and mild right basilar atelectasis versus infiltrate. Bernabe Marquez Jr., MD CT Angiography 12/01/16 1025 Signed Impressions: Service Date/Time: Thursday, December 01, 2016 11:31 - CONCLUSION: 1. Motion degraded exam. 2. No pulmonary embolus. 3. Consolidation involving the left lower lobe with small left effusion. Low-density material seen involving the airways of the left lower lobe. This could relate to mucous plugging. Bernabe Marquez Jr., MD Objective Remarks GENERAL: Patient is 66 yo sitting in bed, alert, oriented, no acute distress SKIN: Warm and dry. HEAD: Normocephalic. EYES: No scleral icterus. No injection or drainage. NECK: Supple, trachea midline. No JVD CARDIOVASCULAR: Regular rate and rhythm. sinus by tele. RESPIRATORY: Breath sounds equal bilaterally. GASTROINTESTINAL: Abdomen soft, non-tender, nondistended. MUSCULOSKELETAL: No cyanosis, or edema. Neuro: RASS 0. CAM-. no focal deficits. A/P Assessment and Plan Assessment: 66yF with non-small cell lung cancer and acute hypoxic respiratory failure secondary to mucous plugging and resorptive atelectasis. Some improvements, although now intubated. will attempt to wean to extubate today. 1. Acute hypoxemic respiratory failure.- resolved. 2. Opacification of left hemithorax- resolved. 3. Post obstructive pneumonia. 4. Stage IV [id number] lung cancer on chemotherapy and radiation treatment. 5. Elevated troponin possible non-STEMI. 6. Cardiomyopathy with ejection fraction of 30-35%. 7. A history of non-Hodgkin's disease. 8. History of brain metastasis, status post resection and radiation treatment. 9. Renal cell CA status post right nephrectomy. 10. COPD . 11. Hypertension. 12. Hypothyroidism. 13. Hyperlipidemia. Plan Neuro: - avoid long-acting sedating meds. Pulm: wean o2 by NC for spo2 > 90% nebs IV steroids 60 iv q8h Aneja - pulm following s/p bronch 12/09 with large left mucous plug need to re-address code status today now that extubated. aggressive pulmonary toilet. OOB to chair PT consult CV: Monitor HR and BP and maintain MAP> 65 mmHg. On Coreg 6.25mg BID, Bumex 1mg daily, Lisinopril 2.5mg daily, ASA 81mg daily Cards is following : Monitor renal function Is and Os and electrolyte replacement as needed. GI: On Protonix 40 mg IV daily. ID: Continue with abx ( Levaquin). Monitor for signs of infections(fever and WBC). sputum culture showed normal respiratory miguel . blood cultures : NGTD strep pneumoniae and Legionella urinary antigen negative on 12/06 Endo: SSI with Accu-Chek q. 4-hour for glycemic control Continue with Synthroid 75 mcg daily. TSH: 0.47 on 12/04. Heme: Monitor CBC. Dr. Ruiz from oncology is following. Further radiation treatment per radiation oncology. GI prophylaxis with a poor Protonix 40 mg daily and DVT prophylaxis with SCDs. not on chemical anticoagulation prophylaxis given her initial presentation with hemoptysis. transfer to floor. hospitalist consult. clinically improving. advance diet. Jai Storm MD Dec 11, 2016 07:10
[2016-12-11] MEDS: CHLORHEXIDINE 0.12% (ORAL KIT) 15 ML CUP MT SCH ×2 (08:00→20:00)
[2016-12-11] MEDS: BUMETANIDE 1 MG TAB PO SCH (08:19)
[2016-12-11] MEDS: SODIUM CHLORIDE 0.9% FLUSH 10 ML FLUSH IV FLUSH SCH ×2 (08:19→21:00)
[2016-12-11] MEDS: guaiFENesin E.R. 600 MG TAB PO SCH ×2 (08:19→22:23)
[2016-12-11] MEDS: CARVEDILOL 6.25 MG TAB PO SCH ×2 (08:19→22:23)
[2016-12-11] MEDS: PANTOPRAZOLE SODIUM 40 MG VIAL IV PUSH SCH (08:20)
[2016-12-11] MEDS: LACTOBACILLUS ACIDOPHILUS TAB PO SCH ×2 (08:20→22:22)
--- NOTE | 2016-12-11 13:35 | PD.ONC.PN ---
Subjective Subjective Remarks Patient doing well with no acute complaints XRT to be resumed this afternoon Objective Data Date Time Temp Pulse Resp B/P (MAP) Pulse Ox O2 Delivery O2 Flow Rate FiO2 12/11/16 10:40 97 Nasal Cannula 4.00 12/11/16 10:40 96.6 86 18 134/74 (94) 96 12/11/16 09:00 77 12/11/16 08:00 98 Nasal Cannula 4.00 12/11/16 08:00 98.0 79 28 121/59 (79) 97 12/11/16 08:00 79 12/11/16 07:00 79 12/11/16 06:44 98 Nasal Cannula 4.00 12/11/16 06:00 76 12/11/16 05:00 74 18 123/58 (79) 97 12/11/16 04:00 98.3 72 13 122/59 (80) 97 12/11/16 04:00 97 Nasal Cannula 4.00 12/11/16 04:00 72 12/11/16 03:00 73 18 121/58 (79) 96 12/11/16 02:01 84 22 138/65 (89) 93 12/11/16 02:00 91 12/11/16 02:00 91 23 91 12/11/16 01:00 74 14 113/58 (76) 95 12/11/16 00:00 98.4 73 18 114/58 (76) 95 12/11/16 00:00 95 Nasal Cannula 4.00 12/11/16 00:00 73 12/10/16 23:00 77 20 108/57 (74) 96 12/10/16 22:00 73 12/10/16 22:00 73 15 108/55 (72) 96 12/10/16 21:00 80 31 115/55 (75) 96 12/10/16 20:00 98.0 88 28 110/54 (72) 95 12/10/16 20:00 95 Nasal Cannula 4.00 12/10/16 20:00 88 12/10/16 19:45 93 31 122/60 (80) 96 12/10/16 19:30 90 39 124/57 (79) 97 12/10/16 19:25 95 Nasal Cannula 4.00 12/10/16 19:15 87 28 122/58 (79) 96 12/10/16 19:01 96 29 130/62 (84) 95 12/10/16 19:00 92 30 95 12/10/16 19:00 92 12/10/16 18:00 82 12/10/16 17:00 130 12/10/16 16:00 98.0 77 35 125/59 (81) 97 12/10/16 16:00 77 12/10/16 16:00 94 Nasal Cannula 2.00 12/10/16 15:33 96 Nasal Cannula 4.00 12/10/16 15:00 82 12/10/16 14:00 84 12/11/16 12/11/16 12/11/16 07:00 15:00 23:00 Intake Total 480 ml Output Total 350 ml Balance 130 ml Result Diagram: 12/11/16 0416 12/11/16 0416 Laboratory Results Laboratory Tests Test 12/10/16 21:24 12/11/16 04:16 Potassium Level 4.0 MEQ/L 3.6 MEQ/L White Blood Count 3.7 TH/MM3 Red Blood Count 3.20 MIL/MM3 Hemoglobin 9.8 GM/DL Hematocrit 30.0 % Mean Corpuscular Volume 93.7 FL Mean Corpuscular Hemoglobin 30.8 PG Mean Corpuscular Hemoglobin Concent 32.8 % Red Cell Distribution Width 14.6 % Platelet Count 153 TH/MM3 Mean Platelet Volume 9.7 FL Blood Urea Nitrogen 53 MG/DL Creatinine 1.52 MG/DL Random Glucose 148 MG/DL Calcium Level 8.1 MG/DL Sodium Level 139 MEQ/L Chloride Level 98 MEQ/L Carbon Dioxide Level 31.4 MEQ/L Anion Gap 10 MEQ/L Estimat Glomerular Filtration Rate 34 ML/MIN Administered Medications Medications (Trade) Dose Ordered Sig/Sami Route PRN Reason Start Time Stop Time Status Last Admin Dose Admin Levothyroxine Sodium (Synthroid) 75 mcg DAILY@0600 PO 12/02/16 06:00 12/11/16 06:21 Sodium Chloride (NS Flush) 2 ml BID IV FLUSH 12/01/16 21:00 12/11/16 08:19 Acetaminophen (Tylenol) 650 mg Q4H PRN PO TEMP > 100.4 12/01/16 13:45 12/08/16 21:02 Guaifenesin (Mucinex Er) 600 mg BID PO 12/01/16 21:00 12/11/16 08:19 Patient Own Medication PT OWN MED: KEPPRA... DAILY@2100 PO 12/03/16 21:00 12/10/16 20:37 Patient Own Medication PT OWN MED: Osimerti... DAILY@2100 PO 12/03/16 21:00 12/10/16 20:39 Pravastatin Sodium (Pravachol) 20 mg DAILY@2100 PO 12/03/16 21:00 12/10/16 20:41 Diphenhydramine HCl (Benadryl) 25 mg HS PRN PO INSOMNIA 12/04/16 20:00 12/04/16 20:45 Lactobacillus Acidophilus (Lactinex) 1 tab Q12HR PO 12/05/16 21:00 12/11/16 08:20 Ibuprofen (Motrin) 400 mg Q8H PRN PO PAIN GREATER THAN 5 12/05/16 18:00 12/05/16 18:32 Methylprednisolone Sodium Succinate (SoluMEDROL INJ) 60 mg Q8HR IV PUSH 12/06/16 14:00 12/11/16 06:21 Budesonide (Pulmicort Respule Neb) 0.5 mg Q12HR NEB NEB 12/06/16 08:15 12/11/16 06:40 Pantoprazole Sodium (Protonix Inj) 40 mg Q24H IV PUSH 12/06/16 09:00 12/11/16 08:20 Carvedilol (Coreg) 6.25 mg BID PO 12/06/16 21:00 12/11/16 08:19 Lisinopril (Prinivil) 2.5 mg DAILY@1400 PO 12/06/16 14:00 12/08/16 12:34 Insulin Human Regular (NovoLIN R SUPPLEMENTAL SCALE) 1 Q6HR SQ 12/07/16 12:00 12/11/16 02:32 Levofloxacin/ Dextrose 150 ml @ 100 mls/hr Q48H IV 12/09/16 05:00 12/11/16 06:20 Chlorhexidine Gluconate (Peridex 0.12% Liq) 15 ml BID@08,20 MT 12/09/16 20:00 12/10/16 08:00 Albuterol/ Ipratropium (Duoneb Neb) 1 ampule Q4HR NEB NEB 12/09/16 16:00 12/11/16 06:39 Acetylcysteine (Mucomyst 10% Neb) 2 ml Q4HR NEB NEB 12/09/16 16:00 12/11/16 06:40 Propofol 100 ml @ 1.83 mls/hr TITRATE PRN IV SEDATION 12/09/16 15:00 12/10/16 08:51 Fentanyl Citrate 250 ml @ 5 mls/hr Q24H PRN IV SEDATION 12/09/16 19:26 12/09/16 21:58 Bumetanide (Bumetanide) 1 mg DAILY PO 12/11/16 09:00 12/11/16 08:19 Objective Remarks GENERAL: Older female resting in bed surrounded by visitors in no acute distress SKIN: Warm and dry. HEAD: Normocephalic. EYES: No injection or drainage. NECK: Supple, trachea midline. CARDIOVASCULAR: Regular rate and rhythm without murmurs. RESPIRATORY: Left side mildly diminished. On 4 L nasal cannula. GASTROINTESTINAL: Abdomen soft, non-tender, nondistended. EXTREMITIES: No cyanosis, or edema. NEUROLOGICAL: Alert and oriented. Normal speech. No obvious focal deficit. Assessment/Plan Assessment 1. XRT to be resumed today. 2. Continue to hold all anticoagulation. 3. We will likely repeat a CT thorax in a few days to reevaluate left lower lobe tumor 4. She can continue the Tagrisso once she is taking in more nutrition by mouth. We expect that she will continue to improve with radiation to the tumor. Plan The exam, history, and the medical decision-making described in the above note were completed with the assistance of the mid-level provider. I reviewed and agree with the findings presented. I attest that I had a [id number] encounter with the patient on the same day, and personally performed and documented my assessment and findings in the medical record. Now that lung is reexpanded will do the following get rid of high dose steroids to avoid complications change to oral Levaquin adjusted for renal function physical therapy consult and will need to go to rehab center once discharged as to weak now she has resume Tagrisso and radiation therapy. Mily Ulloa Dec 11, 2016 13:34 Jesus Ruiz MD Dec 11, 2016 19:38
[2016-12-11] MEDS: LISINOPRIL 5 MG TAB PO SCH (13:54)
--- NOTE | 2016-12-11 18:48 | HHI.PR ---
Subjective Remarks 66 YOWF with Ca lung, Renal cell ca, Hodgekin Lymphoma No fever No CP Developed atelatesis left lung No hemoptysis Had Bronch with removal of thick clots Has reexpansion of left lung Objective Vital Signs Vital Signs Date Time Temp Pulse Resp B/P (MAP) Pulse Ox O2 Delivery O2 Flow Rate FiO2 12/11/16 16:00 96.7 88 18 138/67 (90) 96 12/11/16 10:40 97 Nasal Cannula 4.00 12/11/16 10:40 96.6 86 18 134/74 (94) 96 12/11/16 09:00 77 12/11/16 08:00 98 Nasal Cannula 4.00 12/11/16 08:00 98.0 79 28 121/59 (79) 97 12/11/16 08:00 79 12/11/16 07:00 79 12/11/16 06:44 98 Nasal Cannula 4.00 12/11/16 06:00 76 12/11/16 05:00 74 18 123/58 (79) 97 12/11/16 04:00 98.3 72 13 122/59 (80) 97 12/11/16 04:00 97 Nasal Cannula 4.00 12/11/16 04:00 72 12/11/16 03:00 73 18 121/58 (79) 96 12/11/16 02:01 84 22 138/65 (89) 93 12/11/16 02:00 91 12/11/16 02:00 91 23 91 12/11/16 01:00 74 14 113/58 (76) 95 12/11/16 00:00 98.4 73 18 114/58 (76) 95 12/11/16 00:00 95 Nasal Cannula 4.00 12/11/16 00:00 73 12/10/16 23:00 77 20 108/57 (74) 96 12/10/16 22:00 73 12/10/16 22:00 73 15 108/55 (72) 96 12/10/16 21:00 80 31 115/55 (75) 96 12/10/16 20:00 98.0 88 28 110/54 (72) 95 12/10/16 20:00 95 Nasal Cannula 4.00 12/10/16 20:00 88 12/10/16 19:45 93 31 122/60 (80) 96 12/10/16 19:30 90 39 124/57 (79) 97 12/10/16 19:25 95 Nasal Cannula 4.00 12/10/16 19:15 87 28 122/58 (79) 96 12/10/16 19:01 96 29 130/62 (84) 95 12/10/16 19:00 92 30 95 12/10/16 19:00 92 I/O 12/10/16 12/10/16 12/10/16 12/11/16 12/11/16 12/11/16 07:00 15:00 23:00 07:00 15:00 23:00 Intake Total 193 ml 165 ml 500 ml 480 ml Output Total 625 ml 650 ml 350 ml Balance -432 ml 165 ml -150 ml 130 ml Intake Oral 0 ml 500 ml 480 ml IV Total 193 ml 165 ml Output Urine Total 625 ml 650 ml 350 ml # Bowel Movements 0 0 Result Diagram: 12/11/1641512/11/16415 Objective Remarks GENERAL: MBMN WF,NAD SKIN: Warm and dry. HEAD: Normocephalic. EYES: No scleral icterus. No injection or drainage. NECK: Supple, trachea midline. No JVD or lymphadenopathy. CARDIOVASCULAR: Regular rate and rhythm without murmurs, gallops, or rubs. RESPIRATORY: Breath sounds equal bilaterally. No accessory muscle use. GASTROINTESTINAL: Abdomen soft, non-tender, nondistended. MUSCULOSKELETAL: No cyanosis, or edema. BACK: Nontender without obvious deformity. No CVA tenderness. A/P Assessment and Plan Hemoptysis VDRF Ca lung on chemo Left basal infilt vs mass COPD H/O renal cell ca H/O Hodgekin disease Atelactesis left lung, s/p Bronch with re expansion of lung PLAN: Aerosol nebs Cont Abx Mucomyst nebs Supplement [address]Weiss Jones,Hilton Smith MD Dec 11, 2016 18:48
[2016-12-11] MEDS: KEPPRA 500 MG PO SCH (21:00)
[2016-12-11] MEDS: PRAVASTATIN SOD 20 MG TAB PO SCH (22:22)
[2016-12-11] MEDS: OSIMERTINIB MESYLATE 80 MG PO SCH (22:27)
[2016-12-12] VITALS (12 sets, daily range): BP systolic 115–130; BP diastolic 56–66; PULSE 72–89; RESP 18; TEMP 96.5–97.5; O2SAT 92–96
[2016-12-12] MEDS: RESP: ACETYLCYSTEINE 10% 30 ML NEB NEB SCH ×5 (03:47→22:10)
[2016-12-12] MEDS: RESP: ALBUTEROL 2.5 MG/IPRATROPIUM 0.5 MG NEB (SCH) NEB ×5 (03:47→22:09)
[2016-12-12 05:55] LABS: HEMATOCRIT 27.7 % (35.0-46.0); MEAN CELL VOLUME 93.5 FL (80.0-100.0); MEAN CORPUSCULAR HEMOGLOBIN 31.3 PG (27.0-34.0); MEAN CORPUSCULAR HGB CONC 33.5 % (32.0-36.0); PLATELET COUNT 126 TH/MM3 (150-450); RED BLOOD COUNT 2.97 MIL/MM3 (4.00-5.30); RED CELL DISTRIBUTION WIDTH 14.6 % (11.6-17.2); REVIEW FLAG FINAL; WHITE BLOOD COUNT 5.8 TH/MM3 (4.0-11.0)
[2016-12-12] MEDS: INSULIN NovoLIN REGULAR SUPPLEMENTAL SCALE SQ SCH ×5 (06:00→23:57)
[2016-12-12] MEDS: LEVOTHYROXINE SODIUM 75 MCG TAB PO SCH (06:03)
[2016-12-12 06:31] LABS: BICARBONATE 31.6 MEQ/L (21.0-32.0); POTASSIUM 3.6 MEQ/L (3.5-5.1)
[2016-12-12] MEDS: RESP: BUDESONIDE 0.5 MG/2 ML NEB NEB SCH ×2 (07:58→22:10)
--- NOTE | 2016-12-12 08:24 | PD.ONC.PN ---
Subjective Subjective Remarks doing well and sitting in chair. gait not steady due to generalized weakness. Objective Data Date Time Temp Pulse Resp B/P (MAP) Pulse Ox O2 Delivery O2 Flow Rate FiO2 12/12/16 08:03 95 Nasal Cannula 3.00 12/12/16 04:00 97.0 84 18 115/57 (76) 93 12/12/16 00:14 72 12/12/16 00:08 96 Nasal Cannula 4.00 12/12/16 00:00 96.5 84 18 122/61 (81) 93 12/11/16 20:00 96.4 89 20 127/60 (82) 95 12/11/16 19:55 96 Nasal Cannula 4.00 12/11/16 18:59 95 12/11/16 16:00 96.7 88 18 138/67 (90) 96 12/11/16 10:40 97 Nasal Cannula 4.00 12/11/16 10:40 96.6 86 18 134/74 (94) 96 12/11/16 09:00 77 Result Diagram: 12/12/16 0536 12/12/16 0542 Laboratory Results Laboratory Tests Test 12/12/16 05:36 12/12/16 05:42 White Blood Count 5.8 TH/MM3 Red Blood Count 2.97 MIL/MM3 Hemoglobin 9.3 GM/DL Hematocrit 27.7 % Mean Corpuscular Volume 93.5 FL Mean Corpuscular Hemoglobin 31.3 PG Mean Corpuscular Hemoglobin Concent 33.5 % Red Cell Distribution Width 14.6 % Platelet Count 126 TH/MM3 Mean Platelet Volume 10.0 FL Blood Urea Nitrogen 52 MG/DL Creatinine 1.37 MG/DL Random Glucose 124 MG/DL Calcium Level 8.1 MG/DL Sodium Level 138 MEQ/L Potassium Level 3.6 MEQ/L Chloride Level 98 MEQ/L Carbon Dioxide Level 31.6 MEQ/L Anion Gap 8 MEQ/L Estimat Glomerular Filtration Rate 38 ML/MIN Administered Medications Medications (Trade) Dose Ordered Sig/Sami Route PRN Reason Start Time Stop Time Status Last Admin Dose Admin Levothyroxine Sodium (Synthroid) 75 mcg DAILY@0600 PO 12/02/16 06:00 12/12/16 06:03 Sodium Chloride (NS Flush) 2 ml BID IV FLUSH 12/01/16 21:00 12/11/16 21:00 Acetaminophen (Tylenol) 650 mg Q4H PRN PO TEMP > 100.4 12/01/16 13:45 12/08/16 21:02 Guaifenesin (Mucinex Er) 600 mg BID PO 12/01/16 21:00 12/11/16 22:23 Patient Own Medication PT OWN MED: KEPPRA... DAILY@2100 PO 12/03/16 21:00 12/10/16 20:37 Patient Own Medication PT OWN MED: Osimerti... DAILY@2100 PO 12/03/16 21:00 12/11/16 22:27 Pravastatin Sodium (Pravachol) 20 mg DAILY@2100 PO 12/03/16 21:00 12/11/16 22:22 Diphenhydramine HCl (Benadryl) 25 mg HS PRN PO INSOMNIA 12/04/16 20:00 12/04/16 20:45 Lactobacillus Acidophilus (Lactinex) 1 tab Q12HR PO 12/05/16 21:00 12/11/16 22:22 Ibuprofen (Motrin) 400 mg Q8H PRN PO PAIN GREATER THAN 5 12/05/16 18:00 12/05/16 18:32 Budesonide (Pulmicort Respule Neb) 0.5 mg Q12HR NEB NEB 12/06/16 08:15 12/12/16 07:58 Pantoprazole Sodium (Protonix Inj) 40 mg Q24H IV PUSH 12/06/16 09:00 12/11/16 08:20 Carvedilol (Coreg) 6.25 mg BID PO 12/06/16 21:00 12/11/16 22:23 Lisinopril (Prinivil) 2.5 mg DAILY@1400 PO 12/06/16 14:00 12/11/16 13:54 Insulin Human Regular (NovoLIN R SUPPLEMENTAL SCALE) 1 Q6HR SQ 12/07/16 12:00 12/11/16 02:32 Chlorhexidine Gluconate (Peridex 0.12% Liq) 15 ml BID@08,20 MT 12/09/16 20:00 12/11/16 20:00 Albuterol/ Ipratropium (Duoneb Neb) 1 ampule Q4HR NEB NEB 12/09/16 16:00 12/12/16 07:58 Acetylcysteine (Mucomyst 10% Neb) 2 ml Q4HR NEB NEB 12/09/16 16:00 12/12/16 07:58 Propofol 100 ml @ 1.83 mls/hr TITRATE PRN IV SEDATION 12/09/16 15:00 12/10/16 08:51 Fentanyl Citrate 250 ml @ 5 mls/hr Q24H PRN IV SEDATION 12/09/16 19:26 12/09/16 21:58 Bumetanide (Bumetanide) 1 mg DAILY PO 12/11/16 09:00 12/11/16 08:19 Objective Remarks GENERAL: stronger but still frail. mildly cushingoid from steroids. SKIN: Warm and dry. HEAD: Normocephalic. EYES: No scleral icterus. No injection or drainage. NECK: Supple, trachea midline. No JVD or lymphadenopathy. LYMPHATIC: No adenopathy. CARDIOVASCULAR: Regular rate and rhythm without murmurs. RESPIRATORY: decreased at left base. GASTROINTESTINAL: Abdomen soft, non-tender, nondistended. EXTREMITIES: No cyanosis, or edema. MUSCULOSKELETAL: Adequate muscle tone. NEUROLOGICAL: legs weak. PSYCHIATRIC: Appropriate mood and affect; insight and judgment normal. 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 2 weeks then home -will not need high dose steroids and would be comfortable with discharging on prednisone 10 mg daily. will not need antibiotics post discharge unless a new problem. -once discharged I can follow as outpatient -she can complete XRT as outpatient if necessary. - Jesus Ruiz MD Dec 12, 2016 08:24
[2016-12-12] MEDS ORDERED: predniSONE 20 MG TAB PO SCH (09:00)
[2016-12-12] MEDS: CHLORHEXIDINE 0.12% (ORAL KIT) 15 ML CUP MT SCH ×2 (09:08→20:00)
[2016-12-12] MEDS: PANTOPRAZOLE SODIUM 40 MG VIAL IV PUSH SCH (09:09)
[2016-12-12] MEDS: LACTOBACILLUS ACIDOPHILUS TAB PO SCH ×2 (09:09→22:11)
[2016-12-12] MEDS: SODIUM CHLORIDE 0.9% FLUSH 10 ML FLUSH IV FLUSH SCH ×2 (09:10→22:15)
[2016-12-12] MEDS: guaiFENesin E.R. 600 MG TAB PO SCH ×2 (09:10→22:11)
[2016-12-12] MEDS: LEVOFLOXACIN 250 MG TAB PO SCH (09:10)
[2016-12-12] MEDS: BUMETANIDE 1 MG TAB PO SCH (09:10)
[2016-12-12] MEDS: CARVEDILOL 6.25 MG TAB PO SCH ×2 (09:10→22:11)
--- NOTE | 2016-12-12 09:19 | HHI.PR ---
Subjective Remarks Follow-up respiratory failure, status post extubation 12/11/16/non-small cell lung cancer/post obstructive pneumonia/post obstructive lung mass 12/12/16-patient seen and examined, she reports breathing much better now and denies any chest pain or significant shortness of breath. Still weak on her legs. Plan for radiation today Objective Vitals Vital Signs Date Time Temp Pulse Resp B/P (MAP) Pulse Ox O2 Delivery O2 Flow Rate FiO2 12/12/16 08:03 95 Nasal Cannula 3.00 12/12/16 08:00 96.8 86 18 125/58 (80) 92 12/12/16 04:00 97.0 84 18 115/57 (76) 93 12/12/16 00:14 72 12/12/16 00:08 96 Nasal Cannula 4.00 12/12/16 00:00 96.5 84 18 122/61 (81) 93 12/11/16 20:00 96.4 89 20 127/60 (82) 95 12/11/16 19:55 96 Nasal Cannula 4.00 12/11/16 18:59 95 12/11/16 16:00 96.7 88 18 138/67 (90) 96 12/11/16 10:40 97 Nasal Cannula 4.00 12/11/16 10:40 96.6 86 18 134/74 (94) 96 I/O 12/11/16 12/11/16 12/11/16 12/12/16 12/12/16 12/12/16 07:00 15:00 23:00 07:00 15:00 23:00 Intake Total 480 ml Output Total 350 ml Balance 130 ml Intake Oral 480 ml Output Urine Total 350 ml # Voids 1 # Bowel Movements 0 1 Result Diagram: 12/12/16 0536 12/12/16 0542 Imaging Last Impressions Chest X-Ray 12/10/16 0000 Signed Impressions: Service Date/Time: Saturday, December 10, 2016 05:46 - CONCLUSION: Stable bibasilar opacity likely representing pleural effusions with associated volume loss and/or airspace consolidation. Rodolfo Collado MD CT Angiography 12/01/16 1025 Signed Impressions: Service Date/Time: Thursday, December 01, 2016 11:31 - CONCLUSION: 1. Motion degraded exam. 2. No pulmonary embolus. 3. Consolidation involving the left lower lobe with small left effusion. Low-density material seen involving the airways of the left lower lobe. This could relate to mucous plugging. Bernabe Marquez Jr., MD Objective Remarks GENERAL: NAD SKIN: Warm and dry. HEAD: Normocephalic. EYES: No scleral icterus. No injection or drainage. NECK: Supple, trachea midline. No JVD or lymphadenopathy. CARDIOVASCULAR: Regular rate and rhythm without murmurs, gallops, or rubs. RESPIRATORY: Breath sounds equal bilaterally. No accessory muscle use. GASTROINTESTINAL: Abdomen soft, non-tender, nondistended. MUSCULOSKELETAL: No cyanosis, or edema. BACK: Nontender without obvious deformity. No CVA tenderness. A/P Problem List: (1) Postobstructive pneumonia ICD Code: J18.9 - Pneumonia, unspecified organism (2) Elevated troponin I level ICD Code: R74.8 - Abnormal levels of other serum enzymes (3) Lung cancer ICD Code: C34.90 - Malignant neoplasm of unspecified part of unspecified bronchus or lung Status: Chronic (4) Hemoptysis ICD Code: R04.2 - Hemoptysis Status: Acute (5) Respiratory distress ICD Code: R06.00 - Dyspnea, unspecified Status: Acute Assessment and Plan 66-year-old female with Acute hypoxic respiratory failure Resolved Status post extubation 12/11/16 Avoid long-acting sedating medication 1. 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 Continue Tagrisso Likely will continue therapy when discharge 2. Post obstructive mass Appreciate input from radiation oncology and started local radiation 12/04/16 , and she will have radiation again today 12/12 3. Post obstructive pneumonia and recent episode of hemoptysis, atelectasis left lung s/p bronchoscopy 12/09 with large left mucous plug wean o2 by NC for spo2 > 90% Continue with nebulizer, Prednisone 20mg daily. Aggressive pulmonary toilet Continue with abx ( Levaquin 250mg daily). 4. Elevated troponin I, questionable non-ST elevation CO Appreciate input from cardiology Cardiology 2-D echo with EF 30-35% Continue Coreg 6.25mg BID, Bumex 1mg daily, Lisinopril 2.5mg daily, ASA 81mg daily 5. Hodgkin's Disease 1973 no recurrence 6. Hypertension On Coreg 6.25mg BID, Bumex 1mg daily, Lisinopril 2.5mg daily, ASA 81mg daily 7. Hypothyroidism On Synthroid 8. Hyperlipidemia Continue statin 9. DVT prophylaxis: Bilateral SCDs Discharge Planning Likely discharge to SNF within the next 1-2 days Problem Qualifiers (1) Lung cancer: Qualified Codes: C34.90 - Malignant neoplasm of unspecified part of unspecified bronchus or lung Shon Currie MD Dec 12, 2016 09:19
[2016-12-12] MEDS: LISINOPRIL 5 MG TAB PO SCH (12:31)
--- NOTE | 2016-12-12 17:57 | HHI.PR ---
Subjective Remarks 66 YOWF with Ca lung, Renal cell ca, Hodgekin Lymphoma No fever No CP Developed atelatesis left lung No hemoptysis Breathing better Objective Vital Signs Vital Signs Date Time Temp Pulse Resp B/P (MAP) Pulse Ox O2 Delivery O2 Flow Rate FiO2 12/12/16 17:20 96 Nasal Cannula 3.00 12/12/16 16:03 97.4 79 18 124/60 (81) 94 12/12/16 15:01 Nasal Cannula 3.00 12/12/16 12:33 97.1 89 18 117/56 (76) 95 12/12/16 12:00 81 12/12/16 08:03 95 Nasal Cannula 3.00 12/12/16 08:00 96.8 86 18 125/58 (80) 92 12/12/16 08:00 81 12/12/16 04:00 97.0 84 18 115/57 (76) 93 12/12/16 00:14 72 12/12/16 00:08 96 Nasal Cannula 4.00 12/12/16 00:00 96.5 84 18 122/61 (81) 93 12/11/16 20:00 96.4 89 20 127/60 (82) 95 12/11/16 19:55 96 Nasal Cannula 4.00 12/11/16 18:59 95 I/O 12/11/16 12/11/16 12/11/16 12/12/16 12/12/16 12/12/16 07:00 15:00 23:00 07:00 15:00 23:00 Intake Total 480 ml 720 ml Output Total 350 ml Balance 130 ml 720 ml Intake Oral 480 ml 720 ml Output Urine Total 350 ml # Voids 1 3 1 # Bowel Movements 0 1 Result Diagram: 12/12/16 0536 12/12/16 0542 Objective Remarks GENERAL: MBMN WF,NAD SKIN: Warm and dry. HEAD: Normocephalic. EYES: No scleral icterus. No injection or drainage. NECK: Supple, trachea midline. No JVD or lymphadenopathy. CARDIOVASCULAR: Regular rate and rhythm without murmurs, gallops, or rubs. RESPIRATORY: Breath sounds equal bilaterally. No accessory muscle use. GASTROINTESTINAL: Abdomen soft, non-tender, nondistended. MUSCULOSKELETAL: No cyanosis, or edema. BACK: Nontender without obvious deformity. No CVA tenderness. A/P Assessment and Plan Hemoptysis VDRF Ca lung on chemo Left basal infilt vs mass COPD H/O renal cell ca H/O Hodgekin disease Atelactesis left lung, s/p Bronch with re expansion of lung PLAN: Aerosol nebs Cont Abx Mucomyst nebs Supplement 02 Stable from pulm standpoint Available prn over weekend. Hilton Jones MD Dec 12, 2016 17:57
[2016-12-12] MEDS: PRAVASTATIN SOD 20 MG TAB PO SCH (21:00)
[2016-12-12] MEDS: diphenhydrAMINE HCL 25 MG CAP PO PRN (22:10)
[2016-12-12] MEDS: OSIMERTINIB MESYLATE 80 MG PO SCH (22:18)
[2016-12-12] MEDS: KEPPRA 500 MG PO SCH ×2 (22:19→22:31)
[2016-12-13] VITALS (9 sets, daily range): BP systolic 113–133; BP diastolic 56–68; PULSE 72–93; RESP 16–18; TEMP 96.7–98.8; O2SAT 94–97
[2016-12-13] MEDS: RESP: ACETYLCYSTEINE 10% 30 ML NEB NEB SCH ×4 (00:54→15:35)
[2016-12-13] MEDS: RESP: ALBUTEROL 2.5 MG/IPRATROPIUM 0.5 MG NEB (SCH) NEB ×5 (00:54→15:35)
[2016-12-13] MEDS: INSULIN NovoLIN REGULAR SUPPLEMENTAL SCALE SQ SCH ×3 (06:00→18:00)
[2016-12-13] MEDS: LEVOTHYROXINE SODIUM 75 MCG TAB PO SCH (06:13)
[2016-12-13] MEDS: CHLORHEXIDINE 0.12% (ORAL KIT) 15 ML CUP MT SCH ×2 (08:00→20:00)
[2016-12-13] MEDS: RESP: BUDESONIDE 0.5 MG/2 ML NEB NEB SCH ×2 (08:10→21:57)
[2016-12-13] MEDS: SODIUM CHLORIDE 0.9% FLUSH 10 ML FLUSH IV FLUSH SCH ×2 (09:00→21:39)
[2016-12-13] MEDS: PANTOPRAZOLE SODIUM 40 MG VIAL IV PUSH SCH (09:57)
[2016-12-13] MEDS: guaiFENesin E.R. 600 MG TAB PO SCH ×2 (09:58→21:36)
[2016-12-13] MEDS: predniSONE 5 MG TAB PO SCH (09:58)
[2016-12-13] MEDS: CARVEDILOL 6.25 MG TAB PO SCH ×2 (09:58→21:37)
[2016-12-13] MEDS: LEVOFLOXACIN 250 MG TAB PO SCH (09:58)
[2016-12-13] MEDS: LACTOBACILLUS ACIDOPHILUS TAB PO SCH ×2 (09:58→21:39)
--- NOTE | 2016-12-13 09:58 | PD.ONC.PN ---
Subjective Subjective Remarks Afebrile overnight. Patient resting in bed in nad. Feels breathing improved. Tolerated XRT yesterday. Objective Data Date Time Temp Pulse Resp B/P (MAP) Pulse Ox O2 Delivery O2 Flow Rate FiO2 12/13/16 08:10 96 Nasal Cannula 3.00 12/13/16 08:00 96.7 84 16 133/68 (89) 96 12/13/16 04:00 97.2 76 16 122/60 (80) 97 12/13/16 00:00 98.1 81 18 129/61 (83) 94 12/12/16 22:12 96 Nasal Cannula 3.00 12/12/16 20:00 78 12/12/16 20:00 96 Nasal Cannula 3.00 12/12/16 20:00 97.5 81 18 130/66 (87) 95 12/12/16 17:20 96 Nasal Cannula 3.00 12/12/16 16:03 97.4 79 18 124/60 (81) 94 12/12/16 16:00 74 12/12/16 15:01 Nasal Cannula 3.00 12/12/16 12:33 97.1 89 18 117/56 (76) 95 12/12/16 12:00 81 12/13/16 12/13/16 12/13/16 07:00 15:00 23:00 Intake Total 360 ml Balance 360 ml Result Diagram: 12/12/16 0536 12/12/16 0542 Administered Medications Medications (Trade) Dose Ordered Sig/Sami Route PRN Reason Start Time Stop Time Status Last Admin Dose Admin Levothyroxine Sodium (Synthroid) 75 mcg DAILY@0600 PO 12/02/16 06:00 12/13/16 06:13 Sodium Chloride (NS Flush) 2 ml BID IV FLUSH 12/01/16 21:00 12/12/16 22:15 Acetaminophen (Tylenol) 650 mg Q4H PRN PO TEMP > 100.4 12/01/16 13:45 12/08/16 21:02 Guaifenesin (Mucinex Er) 600 mg BID PO 12/01/16 21:00 12/12/16 22:11 Patient Own Medication PT OWN MED: KEPPRA... DAILY@2100 PO 12/03/16 21:00 12/12/16 22:31 Patient Own Medication PT OWN MED: Osimerti... DAILY@2100 PO 12/03/16 21:00 12/12/16 22:18 Pravastatin Sodium (Pravachol) 20 mg DAILY@2100 PO 12/03/16 21:00 12/12/16 21:00 Diphenhydramine HCl (Benadryl) 25 mg HS PRN PO INSOMNIA 12/04/16 20:00 12/12/16 22:10 Lactobacillus Acidophilus (Lactinex) 1 tab Q12HR PO 12/05/16 21:00 12/12/16 22:11 Ibuprofen (Motrin) 400 mg Q8H PRN PO PAIN GREATER THAN 5 12/05/16 18:00 12/05/16 18:32 Budesonide (Pulmicort Respule Neb) 0.5 mg Q12HR NEB NEB 12/06/16 08:15 12/13/16 08:10 Pantoprazole Sodium (Protonix Inj) 40 mg Q24H IV PUSH 12/06/16 09:00 12/12/16 09:09 Carvedilol (Coreg) 6.25 mg BID PO 12/06/16 21:00 12/12/16 22:11 Lisinopril (Prinivil) 2.5 mg DAILY@1400 PO 12/06/16 14:00 12/12/16 12:31 Insulin Human Regular (NovoLIN R SUPPLEMENTAL SCALE) 1 Q6HR SQ 12/07/16 12:00 12/12/16 12:28 Chlorhexidine Gluconate (Peridex 0.12% Liq) 15 ml BID@08,20 MT 12/09/16 20:00 12/11/16 20:00 Albuterol/ Ipratropium (Duoneb Neb) 1 ampule Q4HR NEB NEB 12/09/16 16:00 12/13/16 08:10 Acetylcysteine (Mucomyst 10% Neb) 2 ml Q4HR NEB NEB 12/09/16 16:00 12/13/16 08:00 Propofol 100 ml @ 1.83 mls/hr TITRATE PRN IV SEDATION 12/09/16 15:00 12/10/16 08:51 Fentanyl Citrate 250 ml @ 5 mls/hr Q24H PRN IV SEDATION 12/09/16 19:26 12/09/16 21:58 Bumetanide (Bumetanide) 1 mg DAILY PO 12/11/16 09:00 12/12/16 09:10 Levofloxacin (Levaquin) 250 mg DAILY PO 12/12/16 09:00 12/12/16 09:10 Objective Remarks GENERAL: Middle aged female upright in bed, on 3L O2 via NC SKIN: Warm and dry. HEAD: Normocephalic. EYES: no injection or drainage. NECK: Supple, trachea midline. CARDIOVASCULAR: Regular rate and rhythm RESPIRATORY: diminished at bases. occasional rhonchi. GASTROINTESTINAL: Abdomen soft, non-tender, nondistended. EXTREMITIES: No cyanosis NEUROLOGICAL: No obvious focal deficit. Awake, alert, and oriented x3. Assessment/Plan Problem List: (1) Lung cancer ICD Codes: C34.90 - Malignant neoplasm of unspecified part of unspecified bronchus or lung Status: Chronic Plan: --diagnosed in December 2015. had brain mets at diagnosis --underwent resection of one of the brain masses. pathology showed adenocarcinoma consistent with lung cancer. biomarkers + for exon-19 deltion. --received brain XRT. started on Tarceva in 2015. good response initially then September 2016 PET scan showed progressive disease --Foundation study showed T790M mutation. started on Tagrisso October 2016 Assessment 66y/o female with non-small cell lung cancer admitted with dyspnea and hemoptysis h/o renal cell cancer. h/o Hodgkin's lymphoma, Stage III-A, treated with radiation therapy in the 1970s. h/o Bilateral salpingo-oophorectomy. Right nephrectomy. Craniotomy and resection of the brain metastasis from the left frontal lobe. Hysterectomy. Splenectomy. Tonsillectomy. Plan 1. reduce steroids to Prednisone 15mg PO daily. when discharged would send home on Prednisone 10mg PO daily 2. once discharged, will need to follow up in clinic for Tagrisso 3. XRT can be completed outpatient Attending Statement The exam, history, and the medical decision-making described in the above note were completed with the assistance of the mid-level provider. I reviewed and agree with the findings presented. I attest that I had a [id number] encounter with the patient on the same day, and personally performed and documented my assessment and findings in the medical record. Patient seen and examined, vital signs, labs, medications and imaging studies reviewed. She has metastatic non-small cell lung carcinoma (adenocarcinoma); T790M mutation presently on Tagrisso. Recommendations: Taper steroids. Continue Tagrisso. D/c to rehab when respiratory status is sufficiently improved. Problem Qualifiers (1) Lung cancer: Qualified Codes: C34.90 - Malignant neoplasm of unspecified part of unspecified bronchus or lung Kinjal Frazier Dec 13, 2016 09:58 Tres Contreras MD Dec 13, 2016 14:24
[2016-12-13] MEDS: BUMETANIDE 1 MG TAB PO SCH (09:59)
--- NOTE | 2016-12-13 10:39 | HHI.PR ---
Subjective Remarks Patient seen and examined this morning. Reports poor sleep overnight. Denies chest pain or difficulty breathing. Currently receiving a breathing treatment. Tolerated XRT yesterday. Objective Vital Signs Date Time Temp Pulse Resp B/P (MAP) Pulse Ox O2 Delivery O2 Flow Rate FiO2 12/13/16 08:10 96 Nasal Cannula 3.00 12/13/16 08:00 96.7 84 16 133/68 (89) 96 12/13/16 04:00 97.2 76 16 122/60 (80) 97 12/13/16 00:00 98.1 81 18 129/61 (83) 94 12/12/16 22:12 96 Nasal Cannula 3.00 12/12/16 20:00 78 12/12/16 20:00 96 Nasal Cannula 3.00 12/12/16 20:00 97.5 81 18 130/66 (87) 95 12/12/16 17:20 96 Nasal Cannula 3.00 12/12/16 16:03 97.4 79 18 124/60 (81) 94 12/12/16 16:00 74 12/12/16 15:01 Nasal Cannula 3.00 12/12/16 12:33 97.1 89 18 117/56 (76) 95 12/12/16 12:00 81 I/O 12/12/16 12/12/16 12/12/16 12/13/16 12/13/16 12/13/16 07:00 15:00 23:00 07:00 15:00 23:00 Intake Total 720 ml 120 ml 360 ml Balance 720 ml 120 ml 360 ml Intake Oral 720 ml 120 ml 360 ml # Voids 3 5 1 1 Result Diagram: 12/12/16 0536 12/12/16 0542 Imaging Last Impressions Chest X-Ray 12/10/16 0000 Signed Impressions: Service Date/Time: Saturday, December 10, 2016 05:46 - CONCLUSION: Stable bibasilar opacity likely representing pleural effusions with associated volume loss and/or airspace consolidation. Rodolfo Collado MD CT Angiography 12/01/16 1025 Signed Impressions: Service Date/Time: Thursday, December 01, 2016 11:31 - CONCLUSION: 1. Motion degraded exam. 2. No pulmonary embolus. 3. Consolidation involving the left lower lobe with small left effusion. Low-density material seen involving the airways of the left lower lobe. This could relate to mucous plugging. Bernabe Marquez Jr., MD Objective Remarks GENERAL: Thin-appearing female, no acute distress SKIN: Warm and dry. HEAD: Normocephalic. EYES: No scleral icterus. No injection or drainage. NECK: Supple, trachea midline. No JVD or lymphadenopathy. CARDIOVASCULAR: Regular rate and rhythm without murmurs, gallops, or rubs. RESPIRATORY: Breath sounds equal bilaterally. No accessory muscle use. GASTROINTESTINAL: Abdomen soft, non-tender, nondistended. MUSCULOSKELETAL: No cyanosis, or edema. BACK: Nontender without obvious deformity. No CVA tenderness. A/P Problem List: (1) Postobstructive pneumonia ICD Code: J18.9 - Pneumonia, unspecified organism (2) Elevated troponin I level ICD Code: R74.8 - Abnormal levels of other serum enzymes (3) Lung cancer ICD Code: C34.90 - Malignant neoplasm of unspecified part of unspecified bronchus or lung Status: Chronic (4) Hemoptysis ICD Code: R04.2 - Hemoptysis Status: Acute (5) Respiratory distress ICD Code: R06.00 - Dyspnea, unspecified Status: Acute Assessment and Plan 66-year-old female with Acute hypoxic respiratory failure Resolved Status post extubation 12/11/16 Avoid long-acting sedating medication Stage IV Non Small Cell lung Cancer T790M Mutation, on Chemotherapy, receiving Tagrisso Followed by oncology. Started local radiation 12/04/16, status post treatment again on 12/12 Likely will continue therapy when discharge Post obstructive pneumonia and recent episode of hemoptysis, atelectasis left lung s/p bronchoscopy 12/09 with large left mucous plug wean o2 by NC for spo2 > 90% Continue with nebulizer, Prednisone 15mg daily. Aggressive pulmonary toilet Continue with abx ( Levaquin 250mg daily). Stable from pulmonary standpoint, are available when necessary Elevated troponin I, questionable non-ST elevation [place] Cardiology following 2-D echo with EF 30-35% Continue Coreg 6.25mg BID, Bumex 1mg daily, Lisinopril 2.5mg daily, ASA 81mg daily Hodgkin's Disease 1973 no recurrence Hypertension On Coreg 6.25mg BID, Bumex 1mg daily, Lisinopril 2.5mg daily Hypothyroidism On Synthroid Hyperlipidemia Continue statin DVT prophylaxis: Bilateral SCDs Discharge Planning home walk test PT recc REHAB, case management to assist Problem Qualifiers (1) Lung cancer: Qualified Codes: C34.90 - Malignant neoplasm of unspecified part of unspecified bronchus or lung Shantal Dumont MD Dec 13, 2016 10:39
[2016-12-13 12:12] LABS: HEMATOCRIT 31.1 % (35.0-46.0); MEAN CELL VOLUME 93.8 FL (80.0-100.0); MEAN CORPUSCULAR HEMOGLOBIN 30.3 PG (27.0-34.0); MEAN CORPUSCULAR HGB CONC 32.3 % (32.0-36.0); PLATELET COUNT 129 TH/MM3 (150-450); RED BLOOD COUNT 3.32 MIL/MM3 (4.00-5.30); RED CELL DISTRIBUTION WIDTH 14.8 % (11.6-17.2); REVIEW FLAG FINAL; WHITE BLOOD COUNT 9.6 TH/MM3 (4.0-11.0)
[2016-12-13 12:48] LABS: BICARBONATE 33.6 MEQ/L (21.0-32.0); POTASSIUM 3.2 MEQ/L (3.5-5.1)
[2016-12-13] MEDS: LISINOPRIL 5 MG TAB PO SCH (13:45)
[2016-12-13] MEDS: PRAVASTATIN SOD 20 MG TAB PO SCH (21:00)
[2016-12-13] MEDS: OSIMERTINIB MESYLATE 80 MG PO SCH (21:35)
[2016-12-13] MEDS: KEPPRA 500 MG PO SCH (21:43)
[2016-12-14] VITALS (10 sets, daily range): BP systolic 90–135; BP diastolic 54–63; PULSE 87–125; RESP 16–19; TEMP 97.8–98.6; O2SAT 94–98
[2016-12-14 05:09] LABS: HEMATOCRIT 31.3 % (35.0-46.0); MEAN CELL VOLUME 93.6 FL (80.0-100.0); MEAN CORPUSCULAR HEMOGLOBIN 30.3 PG (27.0-34.0); MEAN CORPUSCULAR HGB CONC 32.4 % (32.0-36.0); PLATELET COUNT 128 TH/MM3 (150-450); RED BLOOD COUNT 3.34 MIL/MM3 (4.00-5.30); RED CELL DISTRIBUTION WIDTH 14.7 % (11.6-17.2); REVIEW FLAG FINAL
[2016-12-14] MEDS: LEVOTHYROXINE SODIUM 75 MCG TAB PO SCH (05:18)
[2016-12-14 05:33] LABS: BICARBONATE 35.9 MEQ/L (21.0-32.0); POTASSIUM 3.5 MEQ/L (3.5-5.1)
[2016-12-14] MEDS: INSULIN NovoLIN REGULAR SUPPLEMENTAL SCALE SQ SCH ×4 (05:56→17:43)
[2016-12-14] MEDS ORDERED: RESP: IPRATROPIUM 0.5 MG/2.5 ML NEB NEB PRN (07:45)
--- NOTE | 2016-12-14 07:46 | HHI.PR ---
Subjective Remarks Patient seen and examined this morning. Denies chest pain or difficulty breathing. Tachycardic this am. states she feel her heart races when she gets up and goes to the bathroom. She feels exhausted. Has trouble falling asleep. Has a cold sore in her mouth. Objective Vital Signs Date Time Temp Pulse Resp B/P (MAP) Pulse Ox O2 Delivery O2 Flow Rate FiO2 12/14/16 04:06 117 12/14/16 04:00 98.3 121 19 123/62 (82) 94 12/14/16 02:51 125 122/60 (80) 94 12/14/16 00:00 98.4 122 16 135/63 (87) 95 12/14/16 00:00 121 12/13/16 21:57 94 Nasal Cannula 3.00 12/13/16 20:03 93 12/13/16 20:00 98.8 91 16 120/59 (79) 96 12/13/16 16:00 97.1 85 16 127/61 (83) 97 12/13/16 12:00 97.4 72 16 113/56 (75) 94 12/13/16 08:10 96 Nasal Cannula 3.00 12/13/16 08:00 96.7 84 16 133/68 (89) 96 I/O 12/13/16 12/13/16 12/13/16 12/14/16 12/14/16 12/14/16 06:59 14:59 22:59 06:59 14:59 22:59 Intake Total 360 ml 960 ml 240 ml 240 ml Balance 360 ml 960 ml 240 ml 240 ml Intake Oral 360 ml 960 ml 240 ml 240 ml # Voids 1 5 4 2 # Bowel Movements 0 Result Diagram: 12/14/16 0500 12/14/16 0500 Imaging Last Impressions Chest X-Ray 12/10/16 0000 Signed Impressions: Service Date/Time: Saturday, December 10, 2016 05:46 - CONCLUSION: Stable bibasilar opacity likely representing pleural effusions with associated volume loss and/or airspace consolidation. Rodolfo Collado MD CT Angiography 12/01/16 1025 Signed Impressions: Service Date/Time: Thursday, December 01, 2016 11:31 - CONCLUSION: 1. Motion degraded exam. 2. No pulmonary embolus. 3. Consolidation involving the left lower lobe with small left effusion. Low-density material seen involving the airways of the left lower lobe. This could relate to mucous plugging. Bernabe Marquez Jr., MD Objective Remarks GENERAL: Thin-appearing female, no acute distress SKIN: Warm and dry. HEAD: Normocephalic. EYES: No scleral icterus. No injection or drainage. NECK: Supple, trachea midline. No JVD or lymphadenopathy. CARDIOVASCULAR: Regular rate and rhythm without murmurs, gallops, or rubs. RESPIRATORY: Breath sounds equal bilaterally. No accessory muscle use. GASTROINTESTINAL: Abdomen soft, non-tender, nondistended. MUSCULOSKELETAL: No cyanosis, or edema. BACK: Nontender without obvious deformity. No CVA tenderness. A/P Problem List: (1) Postobstructive pneumonia ICD Code: J18.9 - Pneumonia, unspecified organism (2) Elevated troponin I level ICD Code: R74.8 - Abnormal levels of other serum enzymes (3) Lung cancer ICD Code: C34.90 - Malignant neoplasm of unspecified part of unspecified bronchus or lung Status: Chronic (4) Hemoptysis ICD Code: R04.2 - Hemoptysis Status: Acute (5) Respiratory distress ICD Code: R06.00 - Dyspnea, unspecified Status: Acute Assessment and Plan 66-year-old female with Acute hypoxic respiratory failure Resolved Status post extubation 12/11/16 Avoid long-acting sedating medication Stage IV Non Small Cell lung Cancer T790M Mutation, on Chemotherapy, receiving Tagrisso Followed by oncology. Started local radiation 12/04/16, status post treatment again on 12/12 Likely will continue therapy when discharge Post obstructive pneumonia and recent episode of hemoptysis, atelectasis left lung s/p bronchoscopy 12/09 with large left mucous plug wean o2 by NC for spo2 > 90% Continue with nebulizer, Prednisone 15mg daily (d/c on 10 mg daily). Aggressive pulmonary toilet Continue with abx ( Levaquin 250mg daily). Stable from pulmonary standpoint, are available when necessary Elevated troponin I, questionable non-ST elevation [place] Cardiology following 2-D echo with EF 30-35% Continue Coreg 6.25mg BID, Bumex 1mg daily, Lisinopril 2.5mg daily, ASA 81mg daily Hodgkin's Disease 1973 no recurrence Hypertension On Coreg 6.25mg BID, Bumex 1mg daily, Lisinopril 2.5mg daily Hypothyroidism On Synthroid Hyperlipidemia Continue statin Insomnia Melatonin She had respiratory depression with pain medications so will try this first before a benzo DVT prophylaxis: bilat SCD Discharge Planning home walk test SNF placement, likely Thursday Problem Qualifiers (1) Lung cancer: Qualified Codes: C34.90 - Malignant neoplasm of unspecified part of unspecified bronchus or lung Shantal Dumont MD Dec 14, 2016 07:46
[2016-12-14] MEDS: RESP: BUDESONIDE 0.5 MG/2 ML NEB NEB SCH ×2 (08:00→19:48)
[2016-12-14] MEDS: CHLORHEXIDINE 0.12% (ORAL KIT) 15 ML CUP MT SCH ×2 (08:00→20:00)
[2016-12-14] MEDS ORDERED: DIMETHICONE/OXYBENZONE/PADMIATE LIP BALM 4.25 GM TOPICAL PRN (08:30)
[2016-12-14] MEDS ORDERED: TEMAZEPAM 7.5 MG CAP PO PRN (08:30)
[2016-12-14] MEDS: PANTOPRAZOLE SODIUM 40 MG VIAL IV PUSH SCH (08:53)
[2016-12-14] MEDS: guaiFENesin E.R. 600 MG TAB PO SCH ×2 (08:54→20:26)
[2016-12-14] MEDS: SODIUM CHLORIDE 0.9% FLUSH 10 ML FLUSH IV FLUSH SCH ×2 (08:54→20:29)
[2016-12-14] MEDS: LEVOFLOXACIN 250 MG TAB PO SCH (08:54)
[2016-12-14] MEDS: LACTOBACILLUS ACIDOPHILUS TAB PO SCH ×2 (08:54→20:32)
[2016-12-14] MEDS: predniSONE 5 MG TAB PO SCH (08:54)
[2016-12-14] MEDS: CARVEDILOL 6.25 MG TAB PO SCH ×3 (08:54→21:00)
[2016-12-14] MEDS: BUMETANIDE 1 MG TAB PO SCH (08:54)
[2016-12-14] MEDS ORDERED: HEPARIN SODIUM - SQ 10,000 UNITS/ML VIAL SQ SCH (09:00)
[2016-12-14] MEDS: LISINOPRIL 5 MG TAB PO SCH (11:42)
[2016-12-14] MEDS: PRAVASTATIN SOD 20 MG TAB PO SCH (20:25)
[2016-12-14] MEDS: KEPPRA 500 MG PO SCH (20:29)
[2016-12-14] MEDS: OSIMERTINIB MESYLATE 80 MG PO SCH (20:29)
[2016-12-14] MEDS: MELATONIN 5 MG TAB PO PRN (20:29)
[2016-12-15] VITALS (14 sets, daily range): BP systolic 88–106; BP diastolic 44–54; PULSE 66–86; RESP 16–18; TEMP 96.6–97.9; O2SAT 93–98
[2016-12-15] MEDS: LEVOTHYROXINE SODIUM 75 MCG TAB PO SCH (04:58)
[2016-12-15] MEDS: IBUPROFEN 400 MG TAB PO PRN ×3 (05:01→21:21)
[2016-12-15] MEDS: INSULIN NovoLIN REGULAR SUPPLEMENTAL SCALE SQ SCH ×4 (05:04→16:44)
[2016-12-15 07:00] LABS: HEMATOCRIT 27.8 % (35.0-46.0); MEAN CELL VOLUME 93.7 FL (80.0-100.0); MEAN CORPUSCULAR HEMOGLOBIN 31.2 PG (27.0-34.0); MEAN CORPUSCULAR HGB CONC 33.3 % (32.0-36.0); PLATELET COUNT 112 TH/MM3 (150-450); RED BLOOD COUNT 2.97 MIL/MM3 (4.00-5.30); RED CELL DISTRIBUTION WIDTH 14.4 % (11.6-17.2); REVIEW FLAG FINAL
[2016-12-15 07:16] LABS: BICARBONATE 35.7 MEQ/L (21.0-32.0); POTASSIUM 3.3 MEQ/L (3.5-5.1)
--- NOTE | 2016-12-15 07:18 | HHI.PR ---
Subjective Remarks Patient seen and examined this morning. Denies chest pain or difficulty breathing. Vitals have been stable, tachycardia has resolved. She reports sleeping well overnight. States she is breathing comfortably. No complaints. Objective Vital Signs Date Time Temp Pulse Resp B/P (MAP) Pulse Ox O2 Delivery O2 Flow Rate FiO2 12/15/16 04:02 80 12/15/16 00:45 97.9 86 17 106/51 (69) 95 12/15/16 00:02 81 12/14/16 20:40 98.6 90 17 98/55 (69) 97 12/14/16 20:11 87 12/14/16 19:51 98 Nasal Cannula 3.00 12/14/16 16:00 98.0 88 16 102/56 (71) 94 12/14/16 12:00 97.8 91 16 90/54 (66) 94 12/14/16 08:00 97.9 92 16 117/56 (76) 95 I/O 12/14/16 12/14/16 12/14/16 12/15/16 12/15/16 12/15/16 07:00 15:00 23:00 07:00 15:00 23:00 Intake Total 240 ml 600 ml Output Total 1500 ml Balance 240 ml -900 ml Intake Oral 240 ml 600 ml Output Urine Total 1500 ml # Voids 2 1 3 # Bowel Movements 0 0 Result Diagram: 12/15/16 0613 12/14/16 0500 Imaging Last Impressions Chest X-Ray 12/10/16 0000 Signed Impressions: Service Date/Time: Saturday, December 10, 2016 05:46 - CONCLUSION: Stable bibasilar opacity likely representing pleural effusions with associated volume loss and/or airspace consolidation. Rodolfo Collado MD CT Angiography 12/01/16 1025 Signed Impressions: Service Date/Time: Thursday, December 01, 2016 11:31 - CONCLUSION: 1. Motion degraded exam. 2. No pulmonary embolus. 3. Consolidation involving the left lower lobe with small left effusion. Low-density material seen involving the airways of the left lower lobe. This could relate to mucous plugging. Bernabe Marquez Jr., MD Objective Remarks GENERAL: Thin-appearing female, no acute distress SKIN: Warm and dry. HEAD: Normocephalic. EYES: No scleral icterus. No injection or drainage. NECK: Supple, trachea midline. No JVD or lymphadenopathy. CARDIOVASCULAR: Regular rate and rhythm without murmurs, gallops, or rubs. RESPIRATORY: Breath sounds equal bilaterally. No accessory muscle use. Slightly diminished at base. GASTROINTESTINAL: Abdomen soft, non-tender, nondistended. MUSCULOSKELETAL: No cyanosis, or edema. BACK: Nontender without obvious deformity. No CVA tenderness. A/P Problem List: (1) Postobstructive pneumonia ICD Code: J18.9 - Pneumonia, unspecified organism (2) Elevated troponin I level ICD Code: R74.8 - Abnormal levels of other serum enzymes (3) Lung cancer ICD Code: C34.90 - Malignant neoplasm of unspecified part of unspecified bronchus or lung Status: Chronic (4) Hemoptysis ICD Code: R04.2 - Hemoptysis Status: Acute (5) Respiratory distress ICD Code: R06.00 - Dyspnea, unspecified Status: Acute Assessment and Plan 66-year-old female with Acute hypoxic respiratory failure Resolved Status post extubation 12/11/16 Avoid long-acting sedating medication Stage IV Non Small Cell lung Cancer T790M Mutation, on Chemotherapy, receiving Tagrisso Followed by oncology. Started local radiation 12/04/16, status post treatment again on 12/12 Likely will continue therapy when discharge Post obstructive pneumonia and recent episode of hemoptysis, atelectasis left lung s/p bronchoscopy 12/09 with large left mucous plug wean o2 by NC for spo2 > 90% Continue with nebulizer, Prednisone 15mg daily (d/c on 10 mg daily). Aggressive pulmonary toilet Continue with abx ( Levaquin 250mg daily). Stable from pulmonary standpoint, are available when necessary Elevated troponin I, questionable non-ST elevation [place] Cardiology following 2-D echo with EF 30-35% Continue Coreg 6.25mg BID, Bumex 1mg daily, Lisinopril 2.5mg daily, ASA 81mg daily Hodgkin's Disease 1973 no recurrence Hypertension On Coreg 6.25mg BID, Bumex 1mg daily, Lisinopril 2.5mg daily Hypothyroidism On Synthroid Hyperlipidemia Continue statin Insomnia Melatonin hs DVT prophylaxis: bilat SCD Discharge Planning In summary this is a 66-year-old female with lung cancer and renal cancer who presented with hemoptysis found to have post obstructive pneumonia. Patient had some respiratory distress, thought to be due to some sedating medications and was intubated. She was extubated and has been on nasal cannula. She is status post bronchoscopy with large mucous plug identified and removed. The patient has been seen by hemoptysis and pulmonology. She has been on antibiotics and steroids. The plan is for the patient to go to [facility], this cannot be arranged until Thursday. Upon discharge she will be on 10 mg of prednisone. Per pulmonology she will not require antibiotics. A home walk test is pending. SNF placement, likely Thursday Problem Qualifiers (1) Lung cancer: Qualified Codes: C34.90 - Malignant neoplasm of unspecified part of unspecified bronchus or lung Shantal Dumont MD Dec 15, 2016 07:18
[2016-12-15] MEDS: CHLORHEXIDINE 0.12% (ORAL KIT) 15 ML CUP MT SCH ×2 (08:21→20:00)
[2016-12-15] MEDS: RESP: BUDESONIDE 0.5 MG/2 ML NEB NEB SCH ×2 (08:56→20:05)
[2016-12-15] MEDS: LACTOBACILLUS ACIDOPHILUS TAB PO SCH ×2 (10:03→21:14)
[2016-12-15] MEDS: LEVOFLOXACIN 250 MG TAB PO SCH (10:04)
[2016-12-15] MEDS: guaiFENesin E.R. 600 MG TAB PO SCH ×2 (10:04→21:16)
[2016-12-15] MEDS: predniSONE 5 MG TAB PO SCH (10:05)
[2016-12-15] MEDS: SODIUM CHLORIDE 0.9% FLUSH 10 ML FLUSH IV FLUSH SCH ×2 (10:12→21:15)
[2016-12-15] MEDS: PANTOPRAZOLE SODIUM 40 MG VIAL IV PUSH SCH (10:12)
--- NOTE | 2016-12-15 15:08 | PD.ONC.PN ---
Subjective Subjective Remarks slowly gaining strength but not ambulatory without assistance. has sores over lips and fewer in mouth Objective Data Date Time Temp Pulse Resp B/P (MAP) Pulse Ox O2 Delivery O2 Flow Rate FiO2 12/15/16 12:37 80 12/15/16 12:00 97.9 83 18 101/48 (65) 96 12/15/16 10:12 16 12/15/16 09:53 81 12/15/16 08:58 95 Nasal Cannula 3.00 12/15/16 07:45 96.6 82 16 94/50 (65) 93 12/15/16 04:55 97.8 82 16 106/54 (71) 95 12/15/16 04:02 80 12/15/16 00:45 97.9 86 17 106/51 (69) 95 12/15/16 00:02 81 12/14/16 20:40 98.6 90 17 98/55 (69) 97 12/14/16 20:11 87 12/14/16 19:51 98 Nasal Cannula 3.00 12/14/16 16:00 98.0 88 16 102/56 (71) 94 12/15/16 12/15/16 12/15/16 07:00 15:00 23:00 Intake Total 150 ml 400 ml Balance 150 ml 400 ml Result Diagram: 12/15/1613 12/15/16612 Laboratory Results Laboratory Tests Test 12/15/16 06:13 White Blood Count 8.0 TH/MM3 Red Blood Count 2.97 MIL/MM3 Hemoglobin 9.3 GM/DL Hematocrit 27.8 % Mean Corpuscular Volume 93.7 FL Mean Corpuscular Hemoglobin 31.2 PG Mean Corpuscular Hemoglobin Concent 33.3 % Red Cell Distribution Width 14.4 % Platelet Count 112 TH/MM3 Mean Platelet Volume 8.9 FL Blood Urea Nitrogen 32 MG/DL Creatinine 1.24 MG/DL Random Glucose 92 MG/DL Calcium Level 8.2 MG/DL Sodium Level 136 MEQ/L Potassium Level 3.3 MEQ/L Chloride Level 95 MEQ/L Carbon Dioxide Level 35.7 MEQ/L Anion Gap 5 MEQ/L Estimat Glomerular Filtration Rate 43 ML/MIN Administered Medications Medications (Trade) Dose Ordered Sig/Sami Route PRN Reason Start Time Stop Time Status Last Admin Dose Admin Levothyroxine Sodium (Synthroid) 75 mcg DAILY@0600 PO 12/02/16 06:00 12/15/16 04:58 Sodium Chloride (NS Flush) 2 ml BID IV FLUSH 12/01/16 21:00 12/15/16 10:12 Acetaminophen (Tylenol) 650 mg Q4H PRN PO TEMP > 100.4 12/01/16 13:45 12/08/16 21:02 Guaifenesin (Mucinex Er) 600 mg BID PO 12/01/16 21:00 12/15/16 10:04 Patient Own Medication PT OWN MED: KEPPRA... DAILY@2100 PO 12/03/16 21:00 12/14/16 20:29 Patient Own Medication PT OWN MED: Osimerti... DAILY@2100 PO 12/03/16 21:00 12/14/16 20:29 Pravastatin Sodium (Pravachol) 20 mg DAILY@2100 PO 12/03/16 21:00 12/14/16 20:25 Diphenhydramine HCl (Benadryl) 25 mg HS PRN PO INSOMNIA 12/04/16 20:00 12/12/16 22:10 Lactobacillus Acidophilus (Lactinex) 1 tab Q12HR PO 12/05/16 21:00 12/15/16 10:03 Ibuprofen (Motrin) 400 mg Q8H PRN PO PAIN GREATER THAN 5 12/05/16 18:00 12/15/16 14:21 Budesonide (Pulmicort Respule Neb) 0.5 mg Q12HR NEB NEB 12/06/16 08:15 12/15/16 08:56 Pantoprazole Sodium (Protonix Inj) 40 mg Q24H IV PUSH 12/06/16 09:00 12/15/16 10:12 Carvedilol (Coreg) 6.25 mg BID PO 12/06/16 21:00 12/14/16 08:54 Lisinopril (Prinivil) 2.5 mg DAILY@1400 PO 12/06/16 14:00 12/13/16 13:45 Insulin Human Regular (NovoLIN R SUPPLEMENTAL SCALE) 1 Q6HR SQ 12/07/16 12:00 12/12/16 12:28 Chlorhexidine Gluconate (Peridex 0.12% Liq) 15 ml BID@08,20 MT 12/09/16 20:00 12/11/16 20:00 Propofol 100 ml @ 1.83 mls/hr TITRATE PRN IV SEDATION 12/09/16 15:00 12/10/16 08:51 Fentanyl Citrate 250 ml @ 5 mls/hr Q24H PRN IV SEDATION 12/09/16 19:26 12/09/16 21:58 Bumetanide (Bumetanide) 1 mg DAILY PO 12/11/16 09:00 12/14/16 08:54 Levofloxacin (Levaquin) 250 mg DAILY PO 12/12/16 09:00 12/15/16 10:04 Prednisone (Deltasone) 15 mg DAILY PO 12/13/16 09:00 12/15/16 10:05 Melatonin (Melatonin) 5 mg HS PRN PO insomnia 12/14/16 08:30 12/14/16 20:29 Objective Remarks GENERAL: slender and frail SKIN: Warm and dry. HEAD: Normocephalic. sores on lips and fewer in mouth. EYES: No scleral icterus. No injection or drainage. NECK: Supple, trachea midline. No JVD or lymphadenopathy. LYMPHATIC: No adenopathy. CARDIOVASCULAR: Regular rate and rhythm without murmurs. RESPIRATORY: decreased sounds left base. GASTROINTESTINAL: Abdomen soft, non-tender, nondistended. EXTREMITIES: No cyanosis, or edema. MUSCULOSKELETAL: Adequate muscle tone. NEUROLOGICAL: No obvious focal deficit. Awake, alert, and oriented x3. PSYCHIATRIC: Appropriate mood and affect; insight and judgment normal. Assessment/Plan Assessment 1: recovering slowly and at this point need to go to a rehab center as there is not a lot to be gained by continued hospitalization - continue xrt and tagrisso for non small cell lung cancer - magic mouth wash for sores - decrease prednisone to 10 mg a day -NEEDS TO GO TO REHAB CENTER. Jesus Ruiz MD Dec 15, 2016 15:08
--- NOTE | 2016-12-15 17:18 | HHI.PR ---
Subjective Remarks 66 YOWF with Ca lung, Renal cell ca, Hodgekin Lymphoma No fever No CP No hemoptysis Breathing better Sore mouth, difficult to swallow. Objective Vital Signs Vital Signs Date Time Temp Pulse Resp B/P (MAP) Pulse Ox O2 Delivery O2 Flow Rate FiO2 12/15/16 16:44 16 12/15/16 16:00 97.7 66 16 88/44 (59) 97 12/15/16 12:37 80 12/15/16 12:00 97.9 83 18 101/48 (65) 96 12/15/16 09:53 81 12/15/16 08:58 95 Nasal Cannula 3.00 12/15/16 07:45 96.6 82 16 94/50 (65) 93 12/15/16 04:55 97.8 82 16 106/54 (71) 95 12/15/16 04:02 80 12/15/16 00:45 97.9 86 17 106/51 (69) 95 12/15/16 00:02 81 12/14/16 20:40 98.6 90 17 98/55 (69) 97 12/14/16 20:11 87 12/14/16 19:51 98 Nasal Cannula 3.00 I/O 12/14/16 12/14/16 12/14/16 12/15/16 12/15/16 12/15/16 07:00 15:00 23:00 07:00 15:00 23:00 Intake Total 240 ml 600 ml 150 ml 400 ml Output Total 1500 ml Balance 240 ml -900 ml 150 ml 400 ml Intake Oral 240 ml 600 ml 150 ml 400 ml Output Urine Total 1500 ml # Voids 2 1 3 1 # Bowel Movements 0 0 1 Result Diagram: 12/15/16 0612/15/16 06 Objective Remarks GENERAL: MBMN WF,NAD SKIN: Warm and dry. HEAD: Normocephalic. EYES: No scleral icterus. No injection or drainage. NECK: Supple, trachea midline. No JVD or lymphadenopathy. CARDIOVASCULAR: Regular rate and rhythm without murmurs, gallops, or rubs. RESPIRATORY: Breath sounds equal bilaterally. No accessory muscle use. GASTROINTESTINAL: Abdomen soft, non-tender, nondistended. MUSCULOSKELETAL: No cyanosis, or edema. BACK: Nontender without obvious deformity. No CVA tenderness. A/P Assessment and Plan Hemoptysis VDRF Ca lung on chemo Left basal infilt vs mass COPD H/O renal cell ca H/O Hodgekin disease Atelactesis left lung, s/p Bronch with re expansion of lung PLAN: Aerosol nebs Cont Abx Mucomyst nebs Supplement 02 Magic mouth wash Hilton Jones MD Dec 15, 2016 17:18
[2016-12-15] MEDS: NYSTAT/DIPHENHY/LIDO MOUTHWASH (Adult) 120ML SWISH-SWAL SCH ×2 (18:01→21:17)
[2016-12-15] MEDS: PRAVASTATIN SOD 20 MG TAB PO SCH (21:00)
[2016-12-15] MEDS: OSIMERTINIB MESYLATE 80 MG PO SCH (21:12)
[2016-12-15] MEDS: KEPPRA 500 MG PO SCH (21:15)
[2016-12-15] MEDS: MELATONIN 5 MG TAB PO PRN (21:17)
[2016-12-16] VITALS (9 sets, daily range): BP systolic 92–105; BP diastolic 45–50; PULSE 79–102; RESP 16–18; TEMP 97.4–98.1; O2SAT 91–97
[2016-12-16] MEDS: INSULIN NovoLIN REGULAR SUPPLEMENTAL SCALE SQ SCH ×4 (06:00→17:35)
[2016-12-16] MEDS: LEVOTHYROXINE SODIUM 75 MCG TAB PO SCH (06:25)
[2016-12-16] MEDS ORDERED: GNP5TAB6 PO (07:45)
[2016-12-16] MEDS ORDERED: guaiFENesin ER PO (07:45)
[2016-12-16] MEDS ORDERED: BUDE.5I NEB (07:45)
[2016-12-16] MEDS ORDERED: PRED10 PO (07:45)
[2016-12-16] MEDS ORDERED: IPRA0.02 NEB (07:45)
[2016-12-16] MEDS ORDERED: MAGICADU2 SWISH-SWAL (07:45)
[2016-12-16 07:56] LABS: HEMATOCRIT 26.9 % (35.0-46.0); MEAN CELL VOLUME 93.9 FL (80.0-100.0); MEAN CORPUSCULAR HEMOGLOBIN 30.9 PG (27.0-34.0); MEAN CORPUSCULAR HGB CONC 32.9 % (32.0-36.0); PLATELET COUNT 111 TH/MM3 (150-450); RED BLOOD COUNT 2.87 MIL/MM3 (4.00-5.30); RED CELL DISTRIBUTION WIDTH 14.5 % (11.6-17.2); REVIEW FLAG FINAL; WHITE BLOOD COUNT 6.7 TH/MM3 (4.0-11.0)
[2016-12-16] MEDS: CHLORHEXIDINE 0.12% (ORAL KIT) 15 ML CUP MT SCH ×2 (08:00→20:00)
[2016-12-16] MEDS: RESP: BUDESONIDE 0.5 MG/2 ML NEB NEB SCH ×2 (08:24→20:35)
--- NOTE | 2016-12-16 10:20 | HHI.PR ---
Subjective Remarks Follow-up for postobstructive pneumonia, non-small cell lung cancer. Patient is currently doing well. No chest pain, shortness of breath, fever or chills. She is tolerating diet well. She has radiation treatment is scheduled today. Objective Vitals Vital Signs Date Time Temp Pulse Resp B/P (MAP) Pulse Ox O2 Delivery O2 Flow Rate FiO2 12/16/16 08:26 94 Nasal Cannula 2.00 12/16/16 00:40 97.4 81 16 92/45 (61) 94 12/15/16 23:24 96 Nasal Cannula 3.00 12/15/16 23:24 76 12/15/16 22:21 16 12/15/16 20:45 97.8 81 17 90/52 (65) 96 12/15/16 20:06 98 Nasal Cannula 3.00 12/15/16 17:05 83 12/15/16 16:00 97.7 66 16 88/44 (59) 97 12/15/16 12:37 80 12/15/16 12:00 97.9 83 18 101/48 (65) 96 I/O 12/15/16 12/15/16 12/15/16 12/16/16 12/16/16 12/16/16 07:00 15:00 23:00 07:00 15:00 23:00 Intake Total 150 ml 400 ml Balance 150 ml 400 ml Intake Oral 150 ml 400 ml # Voids 3 1 2 # Bowel Movements 0 1 Result Diagram: 12/16/16 0557 12/15/16 0613 Imaging Last Impressions Chest X-Ray 12/10/16 0000 Signed Impressions: Service Date/Time: Saturday, December 10, 2016 05:46 - CONCLUSION: Stable bibasilar opacity likely representing pleural effusions with associated volume loss and/or airspace consolidation. Rodolfo Collado MD CT Angiography 12/01/16 1025 Signed Impressions: Service Date/Time: Thursday, December 01, 2016 11:31 - CONCLUSION: 1. Motion degraded exam. 2. No pulmonary embolus. 3. Consolidation involving the left lower lobe with small left effusion. Low-density material seen involving the airways of the left lower lobe. This could relate to mucous plugging. Bernabe Marquez Jr., MD Objective Remarks GENERAL: Alert, oriented 3, NAD. SKIN: Warm and dry. HEAD: Normocephalic. EYES: No scleral icterus. No injection or drainage. NECK: Supple, trachea midline. No JVD or lymphadenopathy. CARDIOVASCULAR: Regular rate and rhythm without murmurs, gallops, or rubs. RESPIRATORY: Breath sounds equal bilaterally. No accessory muscle use. Somewhat diminished breath sounds at the bases. GASTROINTESTINAL: Abdomen soft, non-tender, nondistended. MUSCULOSKELETAL: No cyanosis, or edema. BACK: Nontender without obvious deformity. No CVA tenderness. Procedures 12/04/2016 CONCLUSIONS Normal left ventricular size. Mild concentric left ventricular hypertrophy. The left ventricular systolic function is severely reduced with an estimated ejection fraction in the range of 30-35%. The left ventricle is not well visualized. Severe mitral valve regurgitation. Calcification of both mitral valve leaflets. Mild aortic valve regurgitation. There is moderate to severe tricuspid valve regurgitation. The estimated pulmonary arterial pressure is 48 mmHg. The pulmonary valve is not well visualized. There is a moderate pericardial effusion present. A/P Problem List: (1) Postobstructive pneumonia ICD Code: J18.9 - Pneumonia, unspecified organism (2) Elevated troponin I level ICD Code: R74.8 - Abnormal levels of other serum enzymes (3) Lung cancer ICD Code: C34.90 - Malignant neoplasm of unspecified part of unspecified bronchus or lung Status: Chronic (4) Hemoptysis ICD Code: R04.2 - Hemoptysis Status: Acute (5) Respiratory distress ICD Code: R06.00 - Dyspnea, unspecified Status: Acute Assessment and Plan Ms. Ramos is a 66-year-old female with past medical history of metastatic non- small-cell lung cancer. Who was started on chemotherapy five weeks ago and currently is receiving radiation treatment, hypothyroidism, non-Hodgkin's lymphoma, renal cell CA status post nephrectomy, hypertension and hypothyroidism. She was admitted to [facility] on December 01 under hospitalist service for a hemoptysis and elevated troponins. She had a CT angiogram of the chest on December 01 which showed no evidence of pulmonary embolism, however, it showed consolidation involving the left lower lobe with small left effusion and possible mucous plugging involving the airways of the left lower lobe. She was started on broad-spectrum antibiotics for likely post obstructive pneumonia. On 12/06/2016, patient went into respiratory failure and critical care was consulted. A large mucous plug was removed on 12/10/2016. She was extubated on 12/11/2016 and patient was maintained on 3L of O2 via NC. 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 Started local radiation 12/04/16, status post treatment again on 12/12 Likely will continue therapy when discharge Post obstructive pneumonia and recent episode of hemoptysis, atelectasis left lung s/p bronchoscopy 12/09 with large left mucous plug wean o2 by NC for spo2 > 90% Continue with nebulizer, Prednisone 15mg daily (d/c on 10 mg daily). Aggressive pulmonary toilet Continue with abx ( Levaquin 250mg daily). Stable from pulmonary standpoint, are available when necessary. No abx on discharge. Elevated troponin I, questionable non-ST elevation [facility] following 2-D echo with EF 30-35% Continue Coreg 6.25mg BID, Bumex 1mg daily, Lisinopril 2.5mg daily, ASA 81mg daily Hodgkin's Disease 1973 no recurrence Hypertension On Coreg 6.25mg BID, Bumex 1mg daily, Lisinopril 2.5mg daily Hypothyroidism On Synthroid Hyperlipidemia Continue statin Insomnia Melatonin hs DVT prophylaxis: bilat SCD Discharge Planning In summary this is a 66-year-old female with lung cancer and renal cancer who presented with hemoptysis found to have post obstructive pneumonia. Patient had some respiratory distress, thought to be due to some sedating medications and was intubated. She was extubated and has been on nasal cannula. She is status post bronchoscopy with large mucous plug identified and removed. The patient has been seen by hemoptysis and pulmonology. She has been on antibiotics and steroids. Upon discharge she will be on 10 mg of prednisone. Per pulmonology she will not require antibiotics. Likely discharge on 12/16/2016 after Radiation treatments. Further radiation treatments will be arranged while patient in SNF. Patient's sister will likely help to transport patient back and forth. Problem Qualifiers (1) Lung cancer: Qualified Codes: C34.90 - Malignant neoplasm of unspecified part of unspecified bronchus or lung Horacio Almaraz DO Dec 16, 2016 10:20
[2016-12-16] MEDS: LACTOBACILLUS ACIDOPHILUS TAB PO SCH ×2 (10:31→20:52)
[2016-12-16] MEDS: SODIUM CHLORIDE 0.9% FLUSH 10 ML FLUSH IV FLUSH SCH ×2 (10:32→20:58)
[2016-12-16] MEDS: NYSTAT/DIPHENHY/LIDO MOUTHWASH (Adult) 120ML SWISH-SWAL SCH ×4 (10:32→20:55)
[2016-12-16] MEDS: PANTOPRAZOLE SODIUM 40 MG VIAL IV PUSH SCH (10:32)
[2016-12-16] MEDS: LEVOFLOXACIN 250 MG TAB PO SCH (10:32)
[2016-12-16] MEDS: guaiFENesin E.R. 600 MG TAB PO SCH ×2 (10:32→20:52)
[2016-12-16] MEDS: predniSONE 10 MG TAB PO SCH (10:32)
[2016-12-16 13:09] LABS: POTASSIUM 4.1 MEQ/L (3.5-5.1)
--- NOTE | 2016-12-16 19:25 | HHI.PR ---
Subjective Remarks 66 YOWF with Ca lung, Renal cell ca, Hodgekin Lymphoma No fever No CP No hemoptysis Breathing better had radiation treatment. Objective Vital Signs Vital Signs Date Time Temp Pulse Resp B/P (MAP) Pulse Ox O2 Delivery O2 Flow Rate FiO2 12/16/16 17:48 85 12/16/16 17:33 Nasal Cannula 1.50 12/16/16 16:03 97.7 88 18 105/50 (68) 97 12/16/16 12:00 79 12/16/16 12:00 97.6 102 18 105/49 (67) 95 12/16/16 11:11 Nasal Cannula 3.00 12/16/16 08:26 94 Nasal Cannula 2.00 12/16/16 08:00 94 12/16/16 00:40 97.4 81 16 92/45 (61) 94 12/15/16 23:24 96 Nasal Cannula 3.00 12/15/16 23:24 76 12/15/16 22:21 16 12/15/16 20:45 97.8 81 17 90/52 (65) 96 12/15/16 20:06 98 Nasal Cannula 3.00 I/O 12/15/16 12/15/16 12/15/16 12/16/16 12/16/16 12/16/16 07:00 15:00 23:00 07:00 15:00 23:00 Intake Total 150 ml 400 ml Balance 150 ml 400 ml Intake Oral 150 ml 400 ml # Voids 3 1 2 # Bowel Movements 0 1 Result Diagram: 12/16/16 0557 12/16/16 1219 Objective Remarks GENERAL: MBMN WF,NAD SKIN: Warm and dry. HEAD: Normocephalic. EYES: No scleral icterus. No injection or drainage. NECK: Supple, trachea midline. No JVD or lymphadenopathy. CARDIOVASCULAR: Regular rate and rhythm without murmurs, gallops, or rubs. RESPIRATORY: Breath sounds equal bilaterally. No accessory muscle use. GASTROINTESTINAL: Abdomen soft, non-tender, nondistended. MUSCULOSKELETAL: No cyanosis, or edema. BACK: Nontender without obvious deformity. No CVA tenderness. A/P Assessment and Plan Hemoptysis VDRF Ca lung on chemo Left basal infilt vs mass COPD H/O renal cell ca H/O Hodgekin disease Atelactesis left lung, s/p Bronch with re expansion of lung PLAN: Aerosol nebs Cont Abx Mucomyst nebs Supplement 02 Magic mouth wash Radiation treatment Hilton Jones MD Dec 16, 2016 19:25
--- NOTE | 2016-12-16 20:07 | PD.ONC.PN ---
Subjective Subjective Remarks mouth less sore. remains weak. Objective Data Date Time Temp Pulse Resp B/P (MAP) Pulse Ox O2 Delivery O2 Flow Rate FiO2 12/16/16 17:48 85 12/16/16 17:33 Nasal Cannula 1.50 12/16/16 16:03 97.7 88 18 105/50 (68) 97 12/16/16 12:00 79 12/16/16 12:00 97.6 102 18 105/49 (67) 95 12/16/16 11:11 Nasal Cannula 3.00 12/16/16 08:26 94 Nasal Cannula 2.00 12/16/16 08:00 94 12/16/16 00:40 97.4 81 16 92/45 (61) 94 12/15/16 23:24 96 Nasal Cannula 3.00 12/15/16 23:24 76 12/15/16 22:21 16 12/15/16 20:45 97.8 81 17 90/52 (65) 96 12/15/16 20:06 98 Nasal Cannula 3.00 Result Diagram: 12/16/16 0557 12/16/16 1219 Laboratory Results Laboratory Tests Test 12/16/16 05:57 12/16/16 12:19 White Blood Count 6.7 TH/MM3 Red Blood Count 2.87 MIL/MM3 Hemoglobin 8.9 GM/DL Hematocrit 26.9 % Mean Corpuscular Volume 93.9 FL Mean Corpuscular Hemoglobin 30.9 PG Mean Corpuscular Hemoglobin Concent 32.9 % Red Cell Distribution Width 14.5 % Platelet Count 111 TH/MM3 Mean Platelet Volume 9.5 FL Blood Urea Nitrogen 38 MG/DL Creatinine 1.61 MG/DL Random Glucose 115 MG/DL Calcium Level 8.1 MG/DL Sodium Level 136 MEQ/L Potassium Level 4.1 MEQ/L Chloride Level 93 MEQ/L Carbon Dioxide Level 39.0 MEQ/L Anion Gap 4 MEQ/L Estimat Glomerular Filtration Rate 32 ML/MIN Administered Medications Medications (Trade) Dose Ordered Sig/Sami Route PRN Reason Start Time Stop Time Status Last Admin Dose Admin Levothyroxine Sodium (Synthroid) 75 mcg DAILY@0600 PO 12/02/16 06:00 12/16/16 06:25 Sodium Chloride (NS Flush) 2 ml BID IV FLUSH 12/01/16 21:00 12/16/16 10:32 Acetaminophen (Tylenol) 650 mg Q4H PRN PO TEMP > 100.4 12/01/16 13:45 12/08/16 21:02 Guaifenesin (Mucinex Er) 600 mg BID PO 12/01/16 21:00 12/16/16 10:32 Patient Own Medication PT OWN MED: KEPPRA... DAILY@2100 PO 12/03/16 21:00 12/15/16 21:15 Patient Own Medication PT OWN MED: Osimerti... DAILY@2100 PO 12/03/16 21:00 12/15/16 21:12 Pravastatin Sodium (Pravachol) 20 mg DAILY@2100 PO 12/03/16 21:00 12/15/16 21:00 Diphenhydramine HCl (Benadryl) 25 mg HS PRN PO INSOMNIA 12/04/16 20:00 12/12/16 22:10 Lactobacillus Acidophilus (Lactinex) 1 tab Q12HR PO 12/05/16 21:00 12/16/16 10:31 Ibuprofen (Motrin) 400 mg Q8H PRN PO PAIN GREATER THAN 5 12/05/16 18:00 12/15/16 21:21 Budesonide (Pulmicort Respule Neb) 0.5 mg Q12HR NEB NEB 12/06/16 08:15 12/16/16 08:24 Pantoprazole Sodium (Protonix Inj) 40 mg Q24H IV PUSH 12/06/16 09:00 12/16/16 10:32 Insulin Human Regular (NovoLIN R SUPPLEMENTAL SCALE) 1 Q6HR SQ 12/07/16 12:00 12/12/16 12:28 Chlorhexidine Gluconate (Peridex 0.12% Liq) 15 ml BID@08,20 MT 12/09/16 20:00 12/15/16 20:00 Propofol 100 ml @ 1.83 mls/hr TITRATE PRN IV SEDATION 12/09/16 15:00 12/10/16 08:51 Fentanyl Citrate 250 ml @ 5 mls/hr Q24H PRN IV SEDATION 12/09/16 19:26 12/09/16 21:58 Levofloxacin (Levaquin) 250 mg DAILY PO 12/12/16 09:00 12/16/16 10:32 Melatonin (Melatonin) 5 mg HS PRN PO insomnia 12/14/16 08:30 12/15/16 21:17 Multi-Ingredient Mouthwash/Gargle (Magic Mouthwash Adult Liq) 10 ml QID SWISH-SWAL 12/15/16 18:00 12/16/16 17:29 Prednisone (Deltasone) 10 mg DAILY PO 12/16/16 09:00 12/16/16 10:32 Objective Remarks l. Objective Remarks GENERAL: slender and frail SKIN: Warm and dry. HEAD: Normocephalic. sores on lips and fewer in mouth. no change from yesterday. EYES: No scleral icterus. No injection or drainage. NECK: Supple, trachea midline. No JVD or lymphadenopathy. LYMPHATIC: No adenopathy. CARDIOVASCULAR: Regular rate and rhythm without murmurs. RESPIRATORY: decreased sounds left base. GASTROINTESTINAL: Abdomen soft, non-tender, nondistended. EXTREMITIES: No cyanosis, or edema. MUSCULOSKELETAL: Adequate muscle tone. NEUROLOGICAL: No obvious focal deficit. Awake, alert, and oriented x3. PSYCHIATRIC: Appropriate mood and affect; insight and judgment shani Assessment/Plan Assessment 1: stable and while she remains in the hospital will continue radiation. If she goes to rehab center it is imperative that transportation be arranged to bring her to radiation therapy daily until course completed. In meantime continue physical therapy. Jesus Ruiz MD Dec 16, 2016 20:07
[2016-12-16] MEDS: PRAVASTATIN SOD 20 MG TAB PO SCH (20:35)
[2016-12-16] MEDS: MELATONIN 5 MG TAB PO PRN (20:51)
[2016-12-16] MEDS: KEPPRA 500 MG PO SCH (20:53)
[2016-12-16] MEDS: OSIMERTINIB MESYLATE 80 MG PO SCH (20:54)
[2016-12-17] VITALS (8 sets, daily range): BP systolic 89–119; BP diastolic 45–54; PULSE 81–100; RESP 17–20; TEMP 93.3–98.6; O2SAT 93–97
[2016-12-17] MEDS: INSULIN NovoLIN REGULAR SUPPLEMENTAL SCALE SQ SCH ×4 (07:20→13:31)
[2016-12-17] MEDS: LEVOTHYROXINE SODIUM 75 MCG TAB PO SCH (07:20)
[2016-12-17] MEDS: RESP: BUDESONIDE 0.5 MG/2 ML NEB NEB SCH (08:00)
[2016-12-17] MEDS: CHLORHEXIDINE 0.12% (ORAL KIT) 15 ML CUP MT SCH (08:00)
[2016-12-17 08:07] LABS: HEMATOCRIT 27.6 % (35.0-46.0); MEAN CELL VOLUME 93.5 FL (80.0-100.0); MEAN CORPUSCULAR HEMOGLOBIN 30.8 PG (27.0-34.0); PLATELET COUNT 117 TH/MM3 (150-450); RED BLOOD COUNT 2.96 MIL/MM3 (4.00-5.30); RED CELL DISTRIBUTION WIDTH 14.7 % (11.6-17.2); REVIEW FLAG FINAL; WHITE BLOOD COUNT 7.7 TH/MM3 (4.0-11.0)
--- NOTE | 2016-12-17 08:25 | PD.ONC.PN ---
Subjective Subjective Remarks has mild dysphagia. still with sores on lips Objective Data Date Time Temp Pulse Resp B/P (MAP) Pulse Ox O2 Delivery O2 Flow Rate FiO2 12/17/16 04:55 96.9 86 17 89/50 (63) 95 12/17/16 00:55 93.3 87 17 89/45 (60) 95 12/17/16 00:04 82 12/16/16 21:00 Nasal Cannula 3.00 40 12/16/16 20:55 98.1 92 16 94/48 (63) 91 12/16/16 20:35 97 Nasal Cannula 2.00 12/16/16 20:13 90 12/16/16 17:48 85 12/16/16 17:33 Nasal Cannula 1.50 12/16/16 16:03 97.7 88 18 105/50 (68) 97 12/16/16 12:00 79 12/16/16 12:00 97.6 102 18 105/49 (67) 95 12/16/16 11:11 Nasal Cannula 3.00 12/16/16 08:26 94 Nasal Cannula 2.00 12/17/16 12/17/16 12/17/16 07:00 15:00 23:00 Intake Total 50 ml Balance 50 ml Result Diagram: 12/17/16 0733 12/16/16 1219 Laboratory Results Laboratory Tests Test 12/16/16 12:19 12/17/16 07:33 Blood Urea Nitrogen 38 MG/DL Creatinine 1.61 MG/DL Random Glucose 115 MG/DL Calcium Level 8.1 MG/DL Sodium Level 136 MEQ/L Potassium Level 4.1 MEQ/L Chloride Level 93 MEQ/L Carbon Dioxide Level 39.0 MEQ/L Anion Gap 4 MEQ/L Estimat Glomerular Filtration Rate 32 ML/MIN White Blood Count 7.7 TH/MM3 Red Blood Count 2.96 MIL/MM3 Hemoglobin 9.1 GM/DL Hematocrit 27.6 % Mean Corpuscular Volume 93.5 FL Mean Corpuscular Hemoglobin 30.8 PG Mean Corpuscular Hemoglobin Concent 33.0 % Red Cell Distribution Width 14.7 % Platelet Count 117 TH/MM3 Mean Platelet Volume 8.9 FL Administered Medications Medications (Trade) Dose Ordered Sig/Sami Route PRN Reason Start Time Stop Time Status Last Admin Dose Admin Levothyroxine Sodium (Synthroid) 75 mcg DAILY@0600 PO 12/02/16 06:00 12/17/16 07:20 Sodium Chloride (NS Flush) 2 ml BID IV FLUSH 12/01/16 21:00 12/16/16 20:58 Acetaminophen (Tylenol) 650 mg Q4H PRN PO TEMP > 100.4 12/01/16 13:45 12/08/16 21:02 Guaifenesin (Mucinex Er) 600 mg BID PO 12/01/16 21:00 12/16/16 20:52 Patient Own Medication PT OWN MED: KEPPRA... DAILY@2100 PO 12/03/16 21:00 12/16/16 20:53 Patient Own Medication PT OWN MED: Osimerti... DAILY@2100 PO 12/03/16 21:00 12/16/16 20:54 Pravastatin Sodium (Pravachol) 20 mg DAILY@2100 PO 12/03/16 21:00 12/16/16 20:35 Diphenhydramine HCl (Benadryl) 25 mg HS PRN PO INSOMNIA 12/04/16 20:00 12/12/16 22:10 Lactobacillus Acidophilus (Lactinex) 1 tab Q12HR PO 12/05/16 21:00 12/16/16 20:52 Ibuprofen (Motrin) 400 mg Q8H PRN PO PAIN GREATER THAN 5 12/05/16 18:00 12/15/16 21:21 Budesonide (Pulmicort Respule Neb) 0.5 mg Q12HR NEB NEB 12/06/16 08:15 12/16/16 20:35 Pantoprazole Sodium (Protonix Inj) 40 mg Q24H IV PUSH 12/06/16 09:00 12/16/16 10:32 Insulin Human Regular (NovoLIN R SUPPLEMENTAL SCALE) 1 Q6HR SQ 12/07/16 12:00 12/12/16 12:28 Chlorhexidine Gluconate (Peridex 0.12% Liq) 15 ml BID@08,20 MT 12/09/16 20:00 12/15/16 20:00 Propofol 100 ml @ 1.83 mls/hr TITRATE PRN IV SEDATION 12/09/16 15:00 12/10/16 08:51 Fentanyl Citrate 250 ml @ 5 mls/hr Q24H PRN IV SEDATION 12/09/16 19:26 12/09/16 21:58 Levofloxacin (Levaquin) 250 mg DAILY PO 12/12/16 09:00 12/16/16 10:32 Melatonin (Melatonin) 5 mg HS PRN PO insomnia 12/14/16 08:30 12/16/16 20:51 Multi-Ingredient Mouthwash/Gargle (Magic Mouthwash Adult Liq) 10 ml QID SWISH-SWAL 12/15/16 18:00 12/16/16 20:55 Prednisone (Deltasone) 10 mg DAILY PO 12/16/16 09:00 12/16/16 10:32 Objective Remarks GENERAL: slender and frail SKIN: Warm and dry. HEAD: Normocephalic. sores on lips and fewer in mouth. mild amount of thrush on tongue EYES: No scleral icterus. No injection or drainage. NECK: Supple, trachea midline. No JVD or lymphadenopathy. LYMPHATIC: No adenopathy. CARDIOVASCULAR: Regular rate and rhythm without murmurs. RESPIRATORY: decreased sounds left base. GASTROINTESTINAL: Abdomen soft, non-tender, nondistended. EXTREMITIES: No cyanosis, or edema. MUSCULOSKELETAL: Adequate muscle tone. NEUROLOGICAL: No obvious focal deficit. Awake, alert, and oriented x3. PSYCHIATRIC: Appropriate mood and affect; insight and judgment shani Assessment/Plan Assessment 1: stable and while she remains in the hospital will continue radiation. If she goes to rehab center it is imperative that transportation be arranged to bring her to radiation therapy daily until course completed. In meantime continue physical therapy. 2: having mild dysphagia with thrush. At this point can discontinue the Levaquin and will briefly tx with Diflucan. Jesus Ruiz MD Dec 17, 2016 08:25
[2016-12-17 08:30] LABS: BICARBONATE 37.4 MEQ/L (21.0-32.0); POTASSIUM 4.3 MEQ/L (3.5-5.1)
[2016-12-17] MEDS ORDERED: FLUCONAZOLE 200 MG TAB PO SCH (09:00)
[2016-12-17] MEDS: NYSTAT/DIPHENHY/LIDO MOUTHWASH (Adult) 120ML SWISH-SWAL SCH ×2 (10:52→13:29)
[2016-12-17] MEDS: LACTOBACILLUS ACIDOPHILUS TAB PO SCH (10:53)
[2016-12-17] MEDS: guaiFENesin E.R. 600 MG TAB PO SCH (10:53)
[2016-12-17] MEDS: predniSONE 10 MG TAB PO SCH (10:53)
[2016-12-17] MEDS: PANTOPRAZOLE SODIUM 40 MG VIAL IV PUSH SCH (10:54)
[2016-12-17] MEDS: SODIUM CHLORIDE 0.9% FLUSH 10 ML FLUSH IV FLUSH SCH (10:54)
--- NOTE | 2016-12-17 17:38 | HHI.PR ---
Subjective Remarks 66 YOWF with Ca lung, Renal cell ca, Hodgekin Lymphoma No fever No CP No hemoptysis Breathing better Still has sores in mouth. Objective Vital Signs Vital Signs Date Time Temp Pulse Resp B/P (MAP) Pulse Ox O2 Delivery O2 Flow Rate FiO2 12/17/16 11:30 98.6 90 20 109/54 (72) 93 12/17/16 10:30 97 Nasal Cannula 2.00 12/17/16 08:50 Nasal Cannula 1.50 40 12/17/16 07:30 97.5 96 20 97/47 (64) 93 12/17/16 04:55 96.9 86 17 89/50 (63) 95 12/17/16 04:04 81 12/17/16 00:55 93.3 87 17 89/45 (60) 95 12/17/16 00:04 82 12/16/16 21:00 Nasal Cannula 3.00 40 12/16/16 20:55 98.1 92 16 94/48 (63) 91 12/16/16 20:35 97 Nasal Cannula 2.00 12/16/16 20:13 90 12/16/16 17:48 85 I/O 12/16/16 12/16/16 12/16/16 12/17/16 12/17/16 12/17/16 07:00 15:00 23:00 07:00 15:00 23:00 Intake Total 720 ml 50 ml Balance 720 ml 50 ml Intake Oral 720 ml 50 ml # Voids 2 3 2 # Bowel Movements 1 1 Result Diagram: 12/17/1673212/17/1633 Objective Remarks GENERAL: MBMN WF,NAD SKIN: Warm and dry. HEAD: Normocephalic. EYES: No scleral icterus. No injection or drainage. NECK: Supple, trachea midline. No JVD or lymphadenopathy. CARDIOVASCULAR: Regular rate and rhythm without murmurs, gallops, or rubs. RESPIRATORY: Breath sounds equal bilaterally. No accessory muscle use. GASTROINTESTINAL: Abdomen soft, non-tender, nondistended. MUSCULOSKELETAL: No cyanosis, or edema. BACK: Nontender without obvious deformity. No CVA tenderness. A/P Assessment and Plan Hemoptysis VDRF Ca lung on chemo Left basal infilt vs mass COPD H/O renal cell ca H/O Hodgekin disease Atelactesis left lung, s/p Bronch with re expansion of lung PLAN: Aerosol nebs Cont Abx Mucomyst nebs Supplement 02 Magic mouth wash Radiation treatment DC plands for Hilton Cordova MD Dec 17, 2016 17:38
--- NOTE | 2016-12-17 21:56 | HHI.DS ---
Discharge Summary Admission Date Dec 01, 2016 at 13:33 Discharge Date: Dec 17, 2016 Admitting Diagnosis respiratory distress, hypoxia, hemoptysis (1) Postobstructive pneumonia ICD Code: J18.9 - Pneumonia, unspecified organism Diagnosis: Principal (2) Elevated troponin I level ICD Code: R74.8 - Abnormal levels of other serum enzymes (3) Lung cancer ICD Code: C34.90 - Malignant neoplasm of unspecified part of unspecified bronchus or lung Diagnosis: Principal Status: Chronic (4) Hemoptysis ICD Code: R04.2 - Hemoptysis Status: Acute (5) Respiratory distress ICD Code: R06.00 - Dyspnea, unspecified Status: Acute Procedures 12/04/2016 CONCLUSIONS Normal left ventricular size. Mild concentric left ventricular hypertrophy. The left ventricular systolic function is severely reduced with an estimated ejection fraction in the range of 30-35%. The left ventricle is not well visualized. Severe mitral valve regurgitation. Calcification of both mitral valve leaflets. Mild aortic valve regurgitation. There is moderate to severe tricuspid valve regurgitation. The estimated pulmonary arterial pressure is 48 mmHg. The pulmonary valve is not well visualized. There is a moderate pericardial effusion present. 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 She short of breath at rest and her oxygen saturation was 88% on 4 L of oxygen via nasal cannula. was contacted her national coverage specialist Doctor Jesus Ruiz recommended for Hospitalization. at this time seen in the presence of her two sisters. CBC/BMP: 12/17/16 0733 12/17/16 0733 Significant Findings Laboratory Tests Test 12/15/16 06:13 12/16/16 05:57 12/16/16 12:19 12/17/16 07:33 Red Blood Count 2.97 MIL/MM3 (4.00-5.30) 2.87 MIL/MM3 (4.00-5.30) 2.96 MIL/MM3 (4.00-5.30) Hemoglobin 9.3 GM/DL (11.6-15.3) 8.9 GM/DL (11.6-15.3) 9.1 GM/DL (11.6-15.3) Hematocrit 27.8 % (35.0-46.0) 26.9 % (35.0-46.0) 27.6 % (35.0-46.0) Platelet Count 112 TH/MM3 (150-450) 111 TH/MM3 (150-450) 117 TH/MM3 (150-450) Blood Urea Nitrogen 32 MG/DL (7-18) 38 MG/DL (7-18) 31 MG/DL (7-18) Creatinine 1.24 MG/DL (0.50-1.00) 1.61 MG/DL (0.50-1.00) 1.36 MG/DL (0.50-1.00) Calcium Level 8.2 MG/DL (8.5-10.1) 8.1 MG/DL (8.5-10.1) 8.2 MG/DL (8.5-10.1) Potassium Level 3.3 MEQ/L (3.5-5.1) Chloride Level 95 MEQ/L (98-107) 93 MEQ/L (98-107) 95 MEQ/L (98-107) Carbon Dioxide Level 35.7 MEQ/L (21.0-32.0) 39.0 MEQ/L (21.0-32.0) 37.4 MEQ/L (21.0-32.0) Estimat Glomerular Filtration Rate 43 ML/MIN (>89) 32 ML/MIN (>89) 39 ML/MIN (>89) Random Glucose 115 MG/DL (74-106) Anion Gap 4 MEQ/L (5-15) Imaging Last Impressions Chest X-Ray 12/10/16 0000 Signed Impressions: Service Date/Time: Saturday, December 10, 2016 05:46 - CONCLUSION: Stable bibasilar opacity likely representing pleural effusions with associated volume loss and/or airspace consolidation. Rodolfo Collado MD CT Angiography 12/01/16 1025 Signed Impressions: Service Date/Time: Thursday, December 01, 2016 11:31 - CONCLUSION: 1. Motion degraded exam. 2. No pulmonary embolus. 3. Consolidation involving the left lower lobe with small left effusion. Low-density material seen involving the airways of the left lower lobe. This could relate to mucous plugging. Bernabe Marquez Jr., MD PE at Discharge GENERAL: Alert, oriented 3, NAD. SKIN: Warm and dry. HEAD: Normocephalic. EYES: No scleral icterus. No injection or drainage. NECK: Supple, trachea midline. No JVD or lymphadenopathy. CARDIOVASCULAR: Regular rate and rhythm without murmurs, gallops, or rubs. RESPIRATORY: Breath sounds equal bilaterally. No accessory muscle use. Somewhat diminished breath sounds at the bases. GASTROINTESTINAL: Abdomen soft, non-tender, nondistended. MUSCULOSKELETAL: No cyanosis, or edema. BACK: Nontender without obvious deformity. No CVA tenderness. Pt update on day of discharge Patient is doing well. No chest pain, SOB, fever, chills. Case management has been able to arrange SNF. Patient will continue to receive radiation treatments at [place]. Hospital Course Ms. Ramos is a 66-year-old female with past medical history of metastatic non- small-cell lung cancer. Who was started on chemotherapy five weeks ago and currently is receiving radiation treatment, hypothyroidism, non-Hodgkin's lymphoma, renal cell CA status post nephrectomy, hypertension and hypothyroidism. She was admitted to [facility] on December 01 under hospitalist service for a hemoptysis and elevated troponins. She had a CT angiogram of the chest on December 01 which showed no evidence of pulmonary embolism, however, it showed consolidation involving the left lower lobe with small left effusion and possible mucous plugging involving the airways of the left lower lobe. She was started on broad-spectrum antibiotics for likely post obstructive pneumonia. On 12/06/2016, patient went into respiratory failure and critical care was consulted. A large mucous plug was removed on 12/10/2016. She was extubated on 12/11/2016 and patient was maintained on 3L of O2 via NC. 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 Started local radiation 12/04/16, status post treatment again on 12/12 Likely will continue therapy when discharge Post obstructive pneumonia and recent episode of hemoptysis, atelectasis left lung s/p bronchoscopy 12/09 with large left mucous plug wean o2 by NC for spo2 > 90% Continue with nebulizer, Prednisone 15mg daily (d/c on 10 mg daily). Aggressive pulmonary toilet Continue with abx ( Levaquin 250mg daily). Stable from pulmonary standpoint, are available when necessary. No abx on discharge. Elevated troponin I, questionable non-ST elevation [place] Cardiology following 2-D echo with EF 30-35% Continue Coreg 6.25mg BID, Bumex 1mg daily, Lisinopril 2.5mg daily, ASA 81mg daily Hodgkin's Disease 1973 no recurrence Hypertension On Coreg 6.25mg BID, Bumex 1mg daily, Lisinopril 2.5mg daily Hypothyroidism On Synthroid Hyperlipidemia Continue statin Insomnia Melatonin hs DVT prophylaxis: bilat SCD Pt Condition on Discharge: Good Discharge Disposition: Discharge to SNF Discharge Time: > 30 minutes Discharge Instructions DIET: Follow Instructions for: As Tolerated, No Restrictions Activities you can perform: Regular-No Restrictions Follow up Referrals: Pulmonology - 2 Weeks with Hilton Jones MD New Medications: Budesonide Neb (Pulmicort Respules) 0.5 Mg/2 Ml Neb 0.5 MG NEB Q12HR NEB for Dyspnea, #30 APPLIC Ipratropium Neb (Ipratropium Neb) 0.5 Mg/2.5 Ml Amp 0.5 MG NEB Q6HR NEB PRN for SOb for 30 Days, ML Melatonin (Gnp Melatonin Maximum Str) 5 Mg Tab 5 MG PO HS PRN for insomnia for 30 Days, TAB Ocsoakio-Zgermwjxfxdnooa-Fxwhcwyix Liq (Magic Mouthwash Adult Liq) 120 Ml Susp 10 ML SWISH-SWAL QID for Infection for 30 Days, #30 ML Prednisone (Prednisone) 10 Mg Tab 10 MG PO DAILY for Inflammation, #30 TAB [guaiFENesin ER] () 600 MG TABCR 600 MG PO BID for cough for 30 Days Continued Medications: Famotidine (Famotidine) 20 Mg Tab 20 MG PO DAILY, TAB 0 Refills Levetiracetam ER 24 HR (Levetiracetam ER 24 HR) 500 Mg Stas 500 MG PO DAILY for Control Seizures, TAB 0 Refills Levothyroxine (Levothyroxine) 75 Mcg Tab 75 MCG PO DAILY for Thyroid, TAB 0 Refills Osimertinib Mesylate (Tagrisso) 80 Mg Tablet 80 MG PO DAILY Pravastatin (Pravastatin) 20 Mg Tab 20 MG PO DAILY for Cholesterol Management, TAB 0 Refills Discontinued Medications: Aspirin (Aspirin) 81 Mg Chew 81 MG CHEW DAILY, TAB 0 Refills Biotin (Biotin) 5 Mg Cap 500 MCG PO DAILY for Nutritional Supplement, #1 BOTTLE 0 Refills Carvedilol (Carvedilol) 6.25 Mg Tab 6.25 MG PO DAILY, TAB 0 Refills Hydrochlorothiazide (Hydrochlorothiazide) 25 Mg Tab 25 MG PO DAILY, TAB 0 Refills Krill Oil (Krill Oil) 500 Mg Capsule 500 MG PO DAILY Multiple Vitamin (Multiple Vitamin) 1 Tab 1 TAB PO DAILY for Nutritional Supplement, TAB 0 Refills Horacio Almaraz DO Dec 17, 2016 21:56
== END 2016-12-17 18:00 | DRG 208 ==
LOC: NEPC 09:53 → NEDA 13:33 → N04A 16:57 → HIME 12-02 04:35 → HOCA 12-02 22:44 → HIMW 12-06 06:25 → HOCA 12-11 10:42 → HOCB 12-11 13:43 → HOCA 12-11 13:44 → HOCB 12-11 16:24 → HOCA 12-11 16:25 → HOCB 12-11 16:30 → HOCA 12-11 16:31
PROVIDERS: ADMIT Hospitalist; ATTEND Hospitalist
PROC: 3E0F7GC Introduction of Other Therapeutic Substance into Respiratory Tract, Via Natural or Artificial Opening (ICD-10-PCS; principal; 2016-12-06)
PROC: DB021ZZ Beam Radiation of Lung using Photons 1 - 10 MeV (ICD-10-PCS; 2016-12-06)
PROC: 5A09357 Assistance with Respiratory Ventilation, Less than 24 Consecutive Hours, Continuous Positive Airway Pressure (ICD-10-PCS; 2016-12-06)
PROC: 5A1935Z Respiratory Ventilation, Less than 24 Consecutive Hours (ICD-10-PCS; 2016-12-09)
PROC: 0BC78ZZ Extirpation of Matter from Left Main Bronchus, Via Natural or Artificial Opening Endoscopic (ICD-10-PCS; 2016-12-09)
DX: J18.1 Lobar pneumonia, unspecified organism (principal); I26.99 Other pulmonary embolism without acute cor pulmonale; J96.01 Acute respiratory failure with hypoxia; T17.890A Other foreign object in other parts of respiratory tract causing asphyxiation, initial encounter; I11.0 Hypertensive heart disease with heart failure; C78.01 Secondary malignant neoplasm of right lung; J44.0 Chronic obstructive pulmonary disease with (acute) lower respiratory infection; I50.9 Heart failure, unspecified; R13.10 Dysphagia, unspecified; C34.32 Malignant neoplasm of lower lobe, left bronchus or lung; C79.31 Secondary malignant neoplasm of brain; R04.2 Hemoptysis; E87.1 Hypo-osmolality and hyponatremia; C79.51 Secondary malignant neoplasm of bone; J98.11 Atelectasis; I42.9 Cardiomyopathy, unspecified; I31.3 Pericardial effusion (noninflammatory); I08.3 Combined rheumatic disorders of mitral, aortic and tricuspid valves; I27.2 Other secondary pulmonary hypertension; Z79.01 Long term (current) use of anticoagulants; Z79.82 Long term (current) use of aspirin; E78.5 Hyperlipidemia, unspecified; I25.10 Atherosclerotic heart disease of native coronary artery without angina pectoris; Z85.528 Personal history of other malignant neoplasm of kidney; Z90.5 Acquired absence of kidney; Z90.81 Acquired absence of spleen; Z87.891 Personal history of nicotine dependence; E03.9 Hypothyroidism, unspecified; G40.909 Epilepsy, unspecified, not intractable, without status epilepticus; Z92.3 Personal history of irradiation; R09.82 Postnasal drip; N28.9 Disorder of kidney and ureter, unspecified; R74.8 Abnormal levels of other serum enzymes; Z66 Do not resuscitate; G47.00 Insomnia, unspecified; B00.1 Herpesviral vesicular dermatitis
CPT/HCPCS: 31500; 31624; 36600; 71010; 71275; 77014; 77293; 77300; 77301; 77334; 77336; 77338; 77386; 77427; 80048; 80053; 80061; 80202; 81001; 82550; 82565; 82805; 82948; 83605; 83735; 83880; 84100; 84132; 84439; 84443; 84484; 85025; 85027; 85610; 86850; 86900; 86901; 87040; 87070; 87205; 87449; 87641; 93005; 93306; 94002; 94003; 94150; 94640; 94664; 94667; 94668; 96374; 99223; C9113; J1650; J1956; J2920; J2930; J3010; J3370; J3475; J7030; J7050; J7512; J7608; J7613; J7626; P9047; Q9967

== ENCOUNTER 2017-04-15 07:22 | Day surgery (SDC) | payer MEDICARE ==
[~2017-04-15] VITALS: Ht 157.5 cm; Wt 55.0 kg
[~2017-04-15 07:22] MED LIST: BUDE.5I NEB; FAMO20TA2 PO; IPRA0.02 NEB; LEVE500T11 PO; LEVO75TA3 PO; MAGICADU2 SWISH-SWAL; MELA1TAB31 PO; OSIM80TA PO; PRAV20TA2 PO; PRED10 PO; guaiFENesin ER PO
[2017-04-15 07:43] VITALS: BP 164/90; PULSE 116; RESP 20; TEMP 98.7; O2SAT 95
[2017-04-15] MEDS ORDERED: ASPI81CH6 CHEW (07:47)
[2017-04-15] MEDS ORDERED: SACC1CAP3 PO (07:47)
[2017-04-15 08:23] LABS: AUTOMATED NEUTROPHIL # 4.8 TH/MM3 (1.8-7.7); BASOPHIL % 0.3 % (0.0-2.0); EOSINOPHIL % 0.6 % (0.0-4.0); HEMATOCRIT 28.6 % (35.0-46.0); HEMOGLOBIN 9.4 GM/DL (11.6-15.3); LYMPH % 8.2 % (9.0-44.0); LYMPHOCYTE # 0.5 TH/MM3 (1.0-4.8); MEAN CELL VOLUME 99.2 FL (80.0-100.0); MEAN CORPUSCULAR HEMOGLOBIN 32.7 PG (27.0-34.0); MEAN PLATELET VOLUME 7.9 FL (7.0-11.0); MONO % 10.1 % (0.0-8.0); MONOCYTE # 0.6 TH/MM3 (0-0.9); NEUT % 80.8 % (16.0-70.0); PLATELET COUNT 196 TH/MM3 (150-450); RED BLOOD COUNT 2.88 MIL/MM3 (4.00-5.30); RED CELL DISTRIBUTION WIDTH 14.9 % (11.6-17.2); WHITE BLOOD COUNT 5.9 TH/MM3 (4.0-11.0)
[2017-04-15] MEDS ORDERED: CHLORHEXIDINE GLUCONATE 2 % 1 PACK (2 CLOTHS) TOPICAL SCH (08:30)
[2017-04-15] MEDS ORDERED: VANCOMYCIN 1000 MG/NS 250 ML - implanted port/tunneled catheter IV SCH ×2 (08:30)
[2017-04-15] MEDS ORDERED: SODIUM CHLORIDE 0.9% 1000 ML IV SCH (08:30)
[2017-04-15] MEDS ORDERED: POVIDONE IODINE 5% (ANTISEPSIS KIT) 4 APPLICATIONS EACH NARE SCH (08:30)
[2017-04-15 08:36] LABS: INTERNATIONAL NORMALIZED RATIO 0.9 RATIO; PROTHROMBIN TIME - PATIENT 9.6 SEC (9.8-11.6)
[2017-04-15] MEDS ORDERED: MIDAZOLAM HCL 2 MG/2 ML VIAL ONE (09:29)
--- NOTE | 2017-04-15 10:20 | PD.RAD ---
Post Procedure Progress Note Pre Procedure Diagnosis: (1) Lung cancer Post Procedure Diagnosis: (1) Lung cancer Procedure Date: Apr 15, 2017 Supervising Radiologist: Quentin López Estimated blood loss: 4cc Anesthesia: Local, Conscious Sedation Plan of Activity Patient to Unit: ROPU Patient Condition: Fair Additional Comments: Port placed via the right subclavian. Catheter tip in good position Port OK for use. Full dictated report to follow See PACS Report for procedural detail/treatment Quentin López MD Apr 15, 2017 10:20
[2017-04-15 10:25] VITALS: BP_SYST 138; BP_SYST 142; BP_DIAS 72; BP_DIAS 75; PULSE 90; PULSE 99; RESP 16; TEMP 97.6; O2SAT 92
[2017-04-15] MEDS ORDERED: SODIUM CHLORIDE 0.9% FLUSH 10 ML FLUSH IVF PRN (10:30)
[2017-04-15 10:55] VITALS: BP 129/72; PULSE 96; RESP 16; O2SAT 99
[2017-04-15 11:25] VITALS: BP 129/72; PULSE 96; RESP 16; O2SAT 99
[2017-04-15 11:54] VITALS: BP 129/72; PULSE 96; RESP 16; O2SAT 99
[2017-04-15 12:00] VITALS: BP 140/65; PULSE 103; RESP 16; O2SAT 94
--- NOTE | 2017-04-15 14:05 | RADRPT ---
EXAM DATE/TIME: 04/15/2017 10:42 [place] COMPARISON: No previous studies available for comparison. INDICATIONS : Patient presents with lung cancer in need of port placement. MEDICAL HISTORY : Lymphoma HTN Anemia Anxiety Hypothyroid Seizures MVP Renal CA Meningitis High Cholesterol SURGICAL HISTORY : Tonsillectomy Craniotomy Hysterectomy Splenectomy Lumpectomy Right Nephrectomy ENCOUNTER: Initial ACUITY: 4-6 months PAIN SCORE: 0/10 FLUORO TIME: 0.9 minutes IMAGE SERIES: 1 SEDATION TIME: 30 minutes ACCESS: Right subclavian vein SEDATION: 1.) 3 midazolam (Versed) IV 2.) 150 fentanyl (Sublimaze) IV Prophylactic antibiotics were administered with appropriate pre-procedure timing. Vancomycin within 2 hours of procedure, Ancef (or alternative) within 1 hour of procedure. DEVICE: 1. 8 [place] single lumen cm [id number] PROCEDURE : 1. Continuous pulse oximetry and EKG monitoring. 2. Intravenous conscious sedation. 3. Ultrasound guidance for venous access. 4. Fluoroscopic guided implantable central venous port placement. The patient was placed supine. The neck was prepped in sterile fashion. Full sterile technique was u sed, including cap, mask, sterile gloves and gown, and a large sterile sheet. Hand hygiene and 2% ch lorhexidine Betadine was utilized per protocol for cutaneous antisepsis with appropriate dry time for site. Sterile gel and sterile probe cover were utilized for ultrasound guidance. The skin and sub cutaneous tissues were infiltrated with local anesthetic solution. The patient was evaluated prior to the procedure. Due to the lack of subcutaneous tissues the decision was made to place a port via the subclavian vein. Under direct ultrasound guidance, central venous access was accomplished via the right subclavian vei n. The ultrasound images depicting access guidance were stored and saved to PACS for permanent recor d. A subcutaneous pocket was created using blunt dissection. The port was introduced to the pocket. The catheter tubing was fed through a subcutaneous tunnel to the venotomy site. The catheter tubin g was cut to a suitable length and then was introduced through a valved Peel-Away sheath and position ed with catheter tubing tip at the cavo-atrial junction level. The pocket incision was closed with s ubcuticular Vicryl suture. Steri-Strips were applied. The port was flushed and locked with heparin solution per protocol. Sterile dressing was applied to the site. The patient tolerated the procedur e well. Conscious sedation was performed with the prescribed dosages and duration as above in the presence of an independent trained radiology nurse to assist in the monitoring of the patient. EKG and oximetry remained stable throughout the procedure. The patient tolerated the procedure well and there were no complications. The patient was sent to post anesthesia recovery in stable condition. CONCLUSION: Uncomplicated ultrasound and fluoroscopic guided implanted central venous port catheter placement as described in detail above. An 8 [place] [employer] port was placed. Quentin López MD on April 15, 2017 at 14:01 Board Certified Radiologist. This report was verified electronically.
== END 2017-04-15 12:30 | disposition home or self-care (01) ==
LOC: HROP 07:22 → HRIP 07:29 → HROP 12:30
PROVIDERS: ATTEND Internal Medicine Hematology & Oncology
DX: C34.90 Malignant neoplasm of unspecified part of unspecified bronchus or lung (principal); I10 Essential (primary) hypertension; E03.9 Hypothyroidism, unspecified; R56.9 Unspecified convulsions; I34.1 Nonrheumatic mitral (valve) prolapse; E78.00 Pure hypercholesterolemia, unspecified; D64.9 Anemia, unspecified; F41.9 Anxiety disorder, unspecified; Z86.61 Personal history of infections of the central nervous system; Z85.528 Personal history of other malignant neoplasm of kidney; Z01.818 Encounter for other preprocedural examination
CPT/HCPCS: 36561; 76937; 77001; 85025; 85610; 85730; 99152; 99153; C1788; J1642; J2250; J3010; J3370; J7030; J7050